=== PATIENT | female | born 1950 | race Caucasian/White ===

== ENCOUNTER 2016-10-01 14:48 | Emergency (ER) | payer OTHER, MEDICAID | END 2016-10-01 15:08 | disposition left against medical advice (07) | DX: Z53.21 Procedure and treatment not carried out due to patient leaving prior to being seen by health care provider (principal) ==

== ENCOUNTER 2016-10-02 00:02 | Emergency (ER) | payer OTHER, MEDICAID ==
[2016-10-02] MEDS ORDERED: FAMOTIDINE 20 MG/2 ML SDV IVP ONE (01:19)
[2016-10-02] MEDS ORDERED: methylPREDNISolone SOD SUCC 125 MG/2 ML VIAL IVP ONE (01:19)
[2016-10-02 01:28] LABS: % IMMATURE GRANULYOCYTES 0.4 % (0.0-1.1); ABSOLUTE IMMATURE GRANULOCYTES 0.04 10^3/uL (0.00-0.10); ADD DIFF? NO; ADD MORPH? NO; ADD SCAN? NO; ATYPICAL LYMPHOCYTE FLAG 10 (0-99); FRAGMENT RBC FLAG 0 (0-99); HEMATOCRIT 40.4 % (38.0-47.0); HEMOGLOBIN 14.2 g/dL (12.6-16.3); LEFT SHIFT FLG 0 (0-99); LIPEMIA HEMOLYSIS FLAG 90 (0-99); MEAN CELL HEMOGLOBIN 32.2 pg (27.9-34.1); MEAN CELL HEMOGLOBIN CONCENTR. 35.1 g/dL (32.4-36.7); MEAN CELL VOLUME 91.6 fL (81.5-99.8); PLATELET CLUMPS FLAG 10 (0-99); PLATELET COUNT 388 10^3/uL (150-400); RED BLOOD CELL COUNT 4.41 10^6/uL (4.18-5.33); RED CELL DISTRIBUTION WIDTH 12.4 % (11.5-15.2)
[2016-10-02 01:46] LABS: ALANINE AMINOTRANSFERASE 23 IU/L (9-52); ALKALINE PHOSPHATASE 92 IU/L (38-126); ANION GAP 9 mEq/L (8-16); ASPARTATE AMINOTRANSFERASE 16 IU/L (14-46); BILIRUBIN,TOTAL 0.7 mg/dL (0.1-1.4); CALCIUM 9.6 mg/dL (8.5-10.4); CARBON DIOXIDE 27 mEq/l (22-31); CHLORIDE 97 mEq/L (97-110); CREATININE 0.7 mg/dL (0.6-1.0); GLOMERULAR FILTRATION RATE > 60; GLUCOSE 96 mg/dL (70-100); POTASSIUM 4.3 mEq/L (3.5-5.2); SODIUM 133 mEq/L (134-144); TOTAL PROTEIN 6.8 g/dL (6.3-8.2)
[2016-10-02 02:06] VITALS: PULSE 66
--- NOTE | 2016-10-02 03:10 | EDPHY ---
H & P Stated Complaint: rt leg & all over body pain, rash all over x 2-3 wks, worsening Time Seen by Provider: 10/02/16 01:09 HPI/ROS: HPI The patient presents with rash of her right leg which has been present for the last several days, it is both painful and itchy and has been getting progressively more red and swollen over time. She went to an urgent care, however was instructed to come to the emergency room to be evaluated for DVT. She says the rash has spread now to her opposite leg and her arms. This rash is pruritic. She has no rash on her palms or soles or in her mouth. She has not had a fever. She denies any new exposures, new foods, new medications. She has no prior history of similar.. REVIEW OF SYSTEMS Constitutional: No fever, no chills. Eyes: No discharge. ENT: No sore throat. Cardiovascular: No chest pain, no palpitations. Respiratory: No cough, no shortness of breath. Gastrointestinal: No abdominal pain, no vomiting. Genitourinary: No hematuria. Musculoskeletal: No back pain. Skin: See HPI Neurological: No headache. PMHx: Fibromyalgia, arthritis Soc Hx: Housed PHYSICAL General Appearance: Alert, no distress Eyes: Pupils equal and round no pallor or injection ENT, Mouth: Mucous membranes moist Respiratory: There are no retractions, lungs are clear to auscultation Cardiovascular: Regular rate and rhythm Gastrointestinal: Abdomen is soft and non-tender, no masses, bowel sounds normal Neurological: A&O, moves all extremities Skin: Warm and dry, erythematous maculopapular rash with areas of confluence on of her right leg, it is slightly warm, the remainder of her extremities have a papular erythematous rash which is circumferential Musculoskeletal: Neck is supple non tender Extremities: symmetrical, full range of motion Psychiatric: Patient is oriented X 3, there is no agitation Source: Patient Exam Limitations: No limitations - Personal History Current Tetanus/Diphtheria Vaccine: Unsure Current Tetanus Diphtheria and Acellular Pertussis (TDAP): Unsure - Medical/Surgical History Hx Asthma: No Hx Chronic Respiratory Disease: Yes Hx Diabetes: No Hx Cardiac Disease: No Hx Renal Disease: No Hx Cirrhosis: No Hx Alcoholism: No Hx HIV/AIDS: No Hx Splenectomy or Spleen Trauma: No Other PMH: FIBROMYALGIA, ARTHRITIS, DJD, HTN, - Social History Smoking Status: Current every day smoker Constitutional: Initial Vital Signs Temperature (C) 36.7 C 10/02/16 00:16 Heart Rate 74 10/02/16 00:16 Respiratory Rate 16 10/02/16 00:16 Blood Pressure 170/89 H 10/02/16 00:16 O2 Sat (%) 93 10/02/16 00:16 O2 Delivery Mode Room Air Allergies/Adverse Reactions: No Known Allergies Allergy (Verified 10/02/16 00:11) Home Medications: Medication Instructions Recorded Aspirin [Aspir 81] 0 mg PO 11/27/11 Estrogen,Con/M-Progest Acet 0 each PO 11/27/11 [Premphase 0.625-5 mg Tablet] Oxycodone HCl [Oxyir] 0 mg PO 11/27/11 fentanYL [Fentanyl] each TD 11/27/11 Calcium & Magnesium Carbonate 10/02/16 Cephalexin [Keflex (*)] 500 mg PO Q6H #28 cap 10/02/16 Coq-10 10/02/16 Levalbuterol HCl [Xopenex] 10/02/16 Multivitamin 10/02/16 Duncan 3 1,000 mg Softgel 10/02/16 Vitamin D3 10/02/16 predniSONE 40 mg PO DAILY #8 tablet 10/02/16 Medical Decision Making - Diagnostics Imaging: DVT study is negative, discussed with the radiologist. Differential Diagnosis: This is a 66-year-old female with fibromyalgia, hypertension, arthritis who presents from home with right leg pain and swelling with rash for the last several days, now with diffuse itchy rash. Differential diagnosis includes cellulitis, urticaria, contact dermatitis, DVT. In the emergency room, DVT study was performed and was unremarkable. Labs were checked and were also normal, she did not have any leukocytosis. I feel she likely has urticaria versus contact dermatitis with a cellulitis of her right leg. She was given a dose of ceftriaxone here. She was also given Solu-Medrol , Benadryl and Pepcid for her more diffuse rash. She had improvement in her symptoms. She will be discharged home with Keflex and prednisone and instructions to take antihistamines. I have referred her to Dermatology. She is in agreement with this plan. - Data Points Laboratory Results: Laboratory Results 10/02/16 00:48 10/02/16 00:48 Medications Given: Discontinued Medications Diphenhydramine HCl (Benadryl Injection) 25 mg IVP EDNOW ONE Stop: 10/02/16 01:20 Last Admin: 10/02/16 01:34 Dose: 25 mg Famotidine (Pepcid) 20 mg IVP EDNOW ONE Stop: 10/02/16 01:20 Last Admin: 10/02/16 01:34 Dose: 20 mg Ceftriaxone Sodium/Dextrose (Rocephin 1 Gm (Premix)) 50 mls @ 100 mls/hr IV EDNOW ONE PRN Reason: Protocol Stop: 10/02/16 03:40 Last Admin: 10/02/16 03:20 Dose: 50 mls Methylprednisolone Sodium Succinate (Solu-Medrol) 125 mg IVP EDNOW ONE Stop: 10/02/16 01:20 Last Admin: 10/02/16 01:35 Dose: 125 mg Departure - Departure Disposition: Home, Routine, Self-Care Clinical Impression: Left leg cellulitis, Urticaria Condition: Good Instructions: Urticaria (ED), Cellulitis (ED) Additional Instructions: Please take the antibiotic as prescribed. You should also take prednisone as prescribed. You can take Benadryl or hydroxyzine as needed for itching. Please follow-up with the engineering designer. You should return to the emergency room if your worse in any way. Referrals: Maynor López [Primary Care Provider] - As per Instructions Stoney Girard MD [Medical Doctor] - As per Instructions Prescriptions: Cephalexin [Keflex (*)] 500 mg PO Q6H #28 cap predniSONE 40 mg PO DAILY #8 tablet
[2016-10-02 04:07] VITALS: BP 133/73; RESP 16; TEMP 98.2; O2SAT 93
== END 2016-10-02 04:08 | disposition home or self-care (01) ==
DX: L03.116 Cellulitis of left lower limb (principal); L50.9 Urticaria, unspecified; I10 Essential (primary) hypertension; F17.200 Nicotine dependence, unspecified, uncomplicated; Z79.82 Long term (current) use of aspirin
CPT/HCPCS: 93971; 96365; 96375; 99285; J0696; J1200

== ENCOUNTER 2016-10-29 22:43 | Inpatient (IN) | payer OTHER, MEDICAID ==
[2016-10-29] MEDS ORDERED: IPRATROPIUM/ALBUTEROL 3 ML DEYVIAL ONE (22:54)
[2016-10-29] MEDS ORDERED: IPRATROPIUM/ALBUTEROL 3 ML DEYVIAL IH ONE (23:00)
[2016-10-29] MEDS ORDERED: NS 1,000 ML IV ONE (23:00)
[2016-10-29] MEDS ORDERED: LORazepam 2 MG/ML INJ ONE ×2 (23:01→23:18)
[2016-10-29] MEDS ORDERED: FUROSEMIDE 40 MG/4 ML VIAL IVP ONE (23:15)
[2016-10-29] MEDS ORDERED: LORazepam 2 MG/ML INJ IVP ONE (23:15)
[2016-10-29] MEDS ORDERED: HALOPERIDOL LACT 5 MG/ML INJ IVP ONE (23:15)
--- NOTE | 2016-10-29 23:22 | EDPHY ---
H & P Time Seen by Provider: 10/29/16 23:11 HPI/ROS: Chief Complaint: Shortness of breath HPI: 66-year-old woman with history of fibromyalgia and COPD chronically on 2 L of oxygen via nasal cannula called EMS tonight for increasing shortness of breath. On EMS arrival patient was not using her oxygen and was saturating her in the 70%. Patient had was very agitated and anxious. Is a very poor historian. States that she is feeling short of breath now and cannot get comfortable. Has worn a fentanyl patch in the past but is not currently have 1 on. Remainder of a history is unobtainable as the patient is very agitated and not answering questions Unobtainable secondary to the patient's confusion and agitation and shortness of breath PMH: COPD, fibromyalgia Social History: Positive for smoking, otherwise not obtainable Family History: non-contributory Physical Exam: Gen: Awake, Alert, agitated, in distress HEENT: Nose: no rhinorrhea Eyes: PERRLA, EOMI Mouth: Dry mucosa Neck: Supple, Chest: nontender, no wheezes, diffuse crackles in all lung zones Heart: S1, S2 normal, no murmur Abd: Soft, non-tender, no guarding Back: no CVA tenderness, no midline tenderness Ext: no edema, non-tender Skin: no rash Neuro: CN II-XII intact, Sensation grossly intact, Strength 5/5 in bilateral upper and lower extremities - Medical/Surgical History Hx Asthma: No Hx Chronic Respiratory Disease: Yes Hx Diabetes: No Hx Cardiac Disease: No Hx Renal Disease: No Hx Cirrhosis: No Hx Alcoholism: No Hx HIV/AIDS: No Hx Splenectomy or Spleen Trauma: No Other PMH: FIBROMYALGIA, ARTHRITIS, DJD, HTN, - Social History Smoking Status: Current every day smoker Constitutional: Initial Vital Signs Temperature (C) 36.4 C 10/29/16 22:50 Heart Rate 110 H 10/29/16 22:50 Respiratory Rate 26 H 10/29/16 22:50 Blood Pressure 183/98 H 10/29/16 22:50 O2 Sat (%) 62 L 10/29/16 22:50 O2 Delivery Mode Room Air O2 (L/minute) 15 Allergies/Adverse Reactions: No Known Allergies Allergy (Verified 10/02/16 00:11) Home Medications: Medication Instructions Recorded Aspirin [Aspir 81] 0 mg PO 11/27/11 Estrogen,Con/M-Progest Acet 0 each PO 11/27/11 [Premphase 0.625-5 mg Tablet] Oxycodone HCl [Oxyir] 0 mg PO 11/27/11 fentanYL [Fentanyl] each TD 11/27/11 Calcium & Magnesium Carbonate 10/02/16 Cephalexin [Keflex (*)] 500 mg PO Q6H #28 cap 10/02/16 Coq-10 10/02/16 Levalbuterol HCl [Xopenex] 10/02/16 Multivitamin 10/02/16 Patriot 3 1,000 mg Softgel 10/02/16 Vitamin D3 10/02/16 predniSONE 40 mg PO DAILY #8 tablet 10/02/16 Medical Decision Making - Diagnostics Imaging Results: Imaging Impressions Chest X-Ray 10/29/16 23:13 Impression: Development of diffuse alveolar opacities in association with cardiac enlargement probably reflects pulmonary edema although diffuse pneumonia cannot be excluded radiographically. Results called and discussed with Bassam Acosta MD on 10/29/2016 at 23:33 Chest X-Ray 10/29/16 23:55 Impression: 1. Satisfactory positioning of the endotracheal tube. 2. Persistent diffuse alveolar opacities and cardiac enlargement. Imaging: I viewed and interpreted images myself Procedures: Indication for the procedure was CHF, hypoxia, agitation. The patient was preoxygenated with 100% oxygen by face mask. The patient was sedated with 20 mg of etomidate and paralyzed with 120 mg of succinylcholine. The patient was orally endotracheally intubated under direct visualization with a 7.5 ETT. Tracheal intubation was confirmed with misting on the tube; breath sounds were auscultated equally bilaterally; appropriate color change with [place] [employer] CO2 detector, capnography waveform is appropriate, oxygen saturation after procedure is 94%. Chest X-ray shows ETT in good position. The procedure was performed by myself. ED Course/Re-evaluation: 66-year-old woman presented emergency department severe respiratory distress with altered mental status. She initially received Ativan as an anxiolytic without significant improvement. A chest x-ray was performed showed severe pulmonary edema. This is new compared to prior chest x-ray from 2013 which is her most recent here. No ABG was ordered. Patient was started on BiPAP. ABG shows hypoxia with out hypercarbia. Patient increasingly agitated on BiPAP and not tolerating. 5 mg of Haldol ordered. Patient moved to resuscitation room. Patient continues to be increasingly agitated, not keeping the mask on, due to hypoxemia altered mental status and significant pulmonary edema patient was RSI intubated by me. Case discussed with Dr. rubi, hospitalist. Will admit to ICU for further care. I have ordered 60 mg of Lasix IV. She also need a Wyatt catheter. Patient's oxygenation coming up to 95% with 7 of peep on the ventilator post intubation. Post intubation chest x-ray shows ET tube in good position with persistent pulmonary edema. Patient on propofol drip for sedation and starting fentanyl drip as well. Patient to ICU for continued care. Hemodynamics and oxygenation have settled. She did receive vecuronium in addition to additional sedation. Critical Care Time: I spent a total of 55 minutes of critical care time in obtaining history, performing a physical exam, bedside monitoring of interventions, collecting and interpreting tests and discussion with consultants but not including time spent performing procedures. - Data Points Laboratory Results: Laboratory Results 10/29/16 22:53 10/29/16 22:53 10/29/16 10/29/16 10/29/16 23:14 23:14 22:53 WBC RBC Hgb Hct MCV MCH MCHC RDW Plt Count MPV Neut % (Auto) Lymph % (Auto) [place] % (Auto) Eos % (Auto) Baso % (Auto) Nucleat RBC Rel Count Absolute Neuts (auto) Absolute Lymphs (auto) Absolute Monos (auto) Absolute Eos (auto) Absolute Basos (auto) Absolute Nucleated RBC Immature Gran % Immature Gran # Puncture Site LEFT RADIAL Patient Temperature 37.0 DEGREES DEGREES pCO2 27 mmHg L mmHg (34-38) pO2 58 mmHg L mmHg (65-75) Total CO2 20 mEq/L L mEq/L (23-27) ABG pH 7.47 H (7.35-7.45) ABG O2 Saturation 88 % L % (92-95) ABG Base Excess -2.4 mEq/L mEq/L (-2.5-2.5) VBG Lactic Acid 1.5 mmol/L mmol/L (0.7-2.1) Total O2 Concentration 15.0 LITERS LITERS Sodium 131 mEq/L L mEq/L (134-144) Potassium 3.8 mEq/L mEq/L (3.5-5.2) Chloride 98 mEq/L mEq/L (97-110) Carbon Dioxide 21 mEq/l L mEq/l (22-31) Bicarbonate 20 mEq/L L mEq/L (22-26) Anion Gap 12 mEq/L mEq/L (8-16) BUN 7 mg/dL mg/dL (7-23) Creatinine 0.6 mg/dL mg/dL (0.6-1.0) Estimated GFR > 60 Glucose 147 mg/dL H mg/dL (70-100) Calcium 8.8 mg/dL mg/dL (8.5-10.4) Total Bilirubin 1.4 mg/dL mg/dL (0.1-1.4) Conjugated Bilirubin 0.6 mg/dL H mg/dL (0.0-0.5) Unconjugated Bilirubin 0.8 mg/dL mg/dL (0.0-1.1) AST 43 IU/L IU/L (14-46) ALT 29 IU/L IU/L (9-52) Alkaline Phosphatase 132 IU/L H IU/L (38-126) Troponin I 0.062 ng/mL H ng/mL (0-0.034) Total Protein 6.2 g/dL L g/dL (6.3-8.2) Albumin 3.5 g/dL g/dL (3.5-5.0) Lipase < 10.0 IU/L L IU/L (23-300) 10/29/16 22:53 WBC 16.26 10^3/uL H 10^3/uL (3.80-9.50) RBC 4.21 10^6/uL 10^6/uL (4.18-5.33) Hgb 13.4 g/dL g/dL (12.6-16.3) Hct 38.6 % % (38.0-47.0) MCV 91.7 fL fL (81.5-99.8) MCH 31.8 pg pg (27.9-34.1) MCHC 34.7 g/dL g/dL (32.4-36.7) RDW 12.5 % % (11.5-15.2) Plt Count 407 10^3/uL H 10^3/uL (150-400) MPV 8.9 fL fL (8.7-11.7) Neut % (Auto) 85.7 % H % (39.3-74.2) Lymph % (Auto) 9.2 % L % (15.0-45.0) [place] % (Auto) 3.8 % L % (4.5-13.0) Eos % (Auto) 0.2 % L % (0.6-7.6) Baso % (Auto) 0.2 % L % (0.3-1.7) Nucleat RBC Rel Count 0.0 % % (0.0-0.2) Absolute Neuts (auto) 13.94 10^3/uL H 10^3/uL (1.70-6.50) Absolute Lymphs (auto) 1.49 10^3/uL 10^3/uL (1.00-3.00) Absolute Monos (auto) 0.62 10^3/uL 10^3/uL (0.30-0.80) Absolute Eos (auto) 0.03 10^3/uL 10^3/uL (0.03-0.40) Absolute Basos (auto) 0.04 10^3/uL 10^3/uL (0.02-0.10) Absolute Nucleated RBC 0.00 10^3/uL 10^3/uL (0-0.01) Immature Gran % 0.9 % % (0.0-1.1) Immature Gran # 0.14 10^3/uL H 10^3/uL (0.00-0.10) Puncture Site Patient Temperature pCO2 pO2 Total CO2 ABG pH ABG O2 Saturation ABG Base Excess VBG Lactic Acid Total O2 Concentration Sodium Potassium Chloride Carbon Dioxide Bicarbonate Anion Gap BUN Creatinine Estimated GFR Glucose Calcium Total Bilirubin Conjugated Bilirubin Unconjugated Bilirubin AST ALT Alkaline Phosphatase Troponin I Total Protein Albumin Lipase Medications Given: Discontinued Medications Fentanyl (Sublimaze) 100 mcg IVP EDNOW ONE Stop: 10/30/16 00:34 Last Admin: 10/30/16 00:38 Dose: 100 mcg Departure - Departure Disposition: [facility] Inpatient Acute Clinical Impression: Congestive heart failure, Respiratory failure, Hypoxemia Condition: Critical
[2016-10-29] MEDS ORDERED: ONDANSETRON 4 MG/2 ML VIAL IVP ONE (23:30)
[2016-10-29] MEDS ORDERED: ETOMIDATE 20 MG/10 ML VIAL IVP ONE (23:30)
[2016-10-29] MEDS ORDERED: fentaNYL 100 MCG/2 ML INJ IVP ONE ×2 (23:30→23:45)
[2016-10-29] MEDS ORDERED: SUCCINYLCHOLINE CHLORIDE 200 MG/10 ML VIAL IVP ONE (23:30)
[2016-10-29 23:32] LABS: % IMMATURE GRANULYOCYTES 0.9 % (0.0-1.1); ABSOLUTE IMMATURE GRANULOCYTES 0.14 10^3/uL (0.00-0.10); ADD DIFF? NO; ADD MORPH? NO; ADD SCAN? NO; ATYPICAL LYMPHOCYTE FLAG 0 (0-99); FRAGMENT RBC FLAG 0 (0-99); HEMATOCRIT 38.6 % (38.0-47.0); HEMOGLOBIN 13.4 g/dL (12.6-16.3); LEFT SHIFT FLG 10 (0-99); LIPEMIA HEMOLYSIS FLAG 90 (0-99); MEAN CELL HEMOGLOBIN 31.8 pg (27.9-34.1); MEAN CELL HEMOGLOBIN CONCENTR. 34.7 g/dL (32.4-36.7); MEAN CELL VOLUME 91.7 fL (81.5-99.8); MEAN PLATELET VOLUME 8.9 fL (8.7-11.7); PLATELET CLUMPS FLAG 0 (0-99); PLATELET COUNT 407 10^3/uL (150-400); RED BLOOD CELL COUNT 4.21 10^6/uL (4.18-5.33); RED CELL DISTRIBUTION WIDTH 12.5 % (11.5-15.2)
[2016-10-29 23:32] LABS: BASE EXCESS -2.4 mEq/L (-2.5-2.5); BICARBONATE 20 mEq/L (22-26); MEASURED OXYGEN SATURATION 88 % (92-95); PCO2 27 mmHg (34-38); PO2 58 mmHg (65-75); TCO2 20 mEq/L (23-27)
[2016-10-29] MEDS ORDERED: HALOPERIDOL LACT 5 MG/ML INJ ONE (23:33)
[2016-10-29] MEDS ORDERED: FUROSEMIDE 20 MG/2 ML VIAL ONE (23:33)
[2016-10-29 23:40] LABS: ALANINE AMINOTRANSFERASE 29 IU/L (9-52); ALBUMIN 3.5 g/dL (3.5-5.0); ALKALINE PHOSPHATASE 132 IU/L (38-126); ANION GAP 12 mEq/L (8-16); ASPARTATE AMINOTRANSFERASE 43 IU/L (14-46); BILIRUBIN,TOTAL 1.4 mg/dL (0.1-1.4); BILIRUBIN-CONJUGATED 0.6 mg/dL (0.0-0.5); BILIRUBIN-UNCONJUGATED 0.8 mg/dL (0.0-1.1); CALCIUM 8.8 mg/dL (8.5-10.4); CARBON DIOXIDE 21 mEq/l (22-31); CHLORIDE 98 mEq/L (97-110); CREATININE 0.6 mg/dL (0.6-1.0); GLOMERULAR FILTRATION RATE > 60; GLUCOSE 147 mg/dL (70-100); POTASSIUM 3.8 mEq/L (3.5-5.2); SODIUM 131 mEq/L (134-144); TOTAL PROTEIN 6.2 g/dL (6.3-8.2)
[2016-10-29] MEDS ORDERED: ETOMIDATE 40 MG/20 ML INJ ONE (23:44)
[2016-10-29] MEDS ORDERED: PROPOFOL/EMULSION 1,000 MG/100 ML BOTTLE IV ONE (23:44)
[2016-10-29] MEDS ORDERED: SUCCINYLCHOLINE CHLORIDE*ANESTHESIA ONLY*200 MG/10 ML SYR IVP ONE (23:44)
[2016-10-29] MEDS ORDERED: PROPOFOL 200 MG/20 ML VIAL IVP ONE (23:45)
[2016-10-29 23:51] LABS: TROPONIN I 0.062 ng/mL (0-0.034)
[2016-10-30] MEDS ORDERED: fentaNYL 100 MCG/2 ML INJ ONE ×2 (00:06→00:21)
[2016-10-30] MEDS ORDERED: ONDANSETRON 4 MG/2 ML VIAL ONE (00:28)
[2016-10-30] MEDS ORDERED: LEVALBUTEROL 1.25 MG/3 ML DEYVIAL IH PRN (00:28)
--- NOTE | 2016-10-30 00:30 | CPEKG ---
Heart Rate: 86 RR Interval: 698 P-R Interval: 140 QRSD Interval: 84 QT Interval: 440 QTC Interval: 527 P [place]: 69 QRS [place]: 41 T Wave [place]: 30 EKG Severity - ABNORMAL ECG - EKG Impression: SINUS RHYTHM EKG Impression: LEFT ATRIAL ABNORMALITY EKG Impression: INFERIOR INFARCT, OLD Electronically Signed By: Toni River 31-Oct-2016 09:07:44
[2016-10-30] MEDS ORDERED: fentaNYL 100 MCG/2 ML INJ IVP ONE (00:33)
[2016-10-30] MEDS ORDERED: fentaNYL 100 MCG/2 ML INJ IVP PRN (00:34)
[2016-10-30] MEDS ORDERED: VECURONIUM BROMIDE 10 MG VIAL IV ONE (00:34)
[2016-10-30] MEDS: fentaNYL/NACL 100 ML IV SCH ×4 (01:00→22:37)
[2016-10-30 01:36] LABS: COLOR PALE YELLOW; LEUKOCYTE ESTERASE,URINE NEGATIVE (NEGATIVE); NITRITE,URINE NEGATIVE (NEGATIVE)
[2016-10-30 01:39] LABS: RBC,URINE NONE SEEN /hpf (0-3); WBC,URINE NONE SEEN /hpf (0-3)
[2016-10-30] MEDS ORDERED: ALTEPLASE 2 MG VIAL IVP PRN (01:52)
[2016-10-30] MEDS ORDERED: ALBUTEROL 200 PUFFS/18 GM MDI IH SCH (02:00)
[2016-10-30] MEDS: ERTAPENEM 1 GM in NS 100 ML IV SCH ×2 (02:06→08:11)
[2016-10-30 02:33] LABS: BASE EXCESS -5.4 mEq/L (-2.5-2.5); BICARBONATE 23 mEq/L (22-26); MEASURED OXYGEN SATURATION 94 % (92-95); PCO2 60 mmHg (34-38); PO2 97 mmHg (65-75); TCO2 25 mEq/L (23-27)
[2016-10-30 02:34] LABS: O2 CONCENTRATIION 90 % (0-100); P/F RATIO 108 RATIO; SIMV YES
[2016-10-30 02:35] LABS: END TIDAL CO2 52; PATIENT RATE 23; PRESSURE SUPPORT 7
[2016-10-30] MEDS: LORazepam 2 MG/ML INJ IVP PRN ×4 (03:20→21:10)
[2016-10-30] MEDS ORDERED: MIDAZOLAM HCL 50 MG in D5W 50 ML IV SCH (03:30)
--- NOTE | 2016-10-30 04:00 | PDGENHP ---
History and Physical - Chief Complaint shortness of breath - History of Present Illness Patient is a 66-year-old female with history of COPD on chronic O2, fibromyalgia , hypertension, arthritis presents to the ED with complaint of shortness of breath. History is obtained from the chart and ED staff as patient is intubated on a evaluation. Per report, she called EMS this evening with complaint of acute onset shortness of breath. When EMS arrived they found her off nasal cannula and saturating at about 70% on room air. She was placed on oxygen and transported to the ED. On arrival to the ED patient was in moderate respiratory distress, afebrile, hypertensive and hypoxic to the 60s on room air. Chest x-ray revealed diffuse alveolar infiltrates and pulmonary edema. Labs revealed leukocytosis, negative lactic acid, normal BMP, indeterminantly elevated troponin. She was emergently and successfully intubated for hypoxemia and respiratory failure. She was also given IV lasix, nebs. On my initial evaluation, patient was being sedated with propofol and BP had dropped significantly to the 80-90 SBP range. Propofol was titrated off and she was initiated on fentanyl drip for sedation. However, she became significantly agitated, hypertensive and tachycardic, not adequately sedated on fentanyl. Given her acute agitation she was given a paralytic and additional propofol for sedation and the transported to the ICU. On review of medical record, patient was evaluated in the ED one month ago for a diffuse maculopapular rash with associated RLE cellulitis. She was given antibiotics and steroids for her rash and discharged home. RLE doppler US was negative for DVT at that time. History Information - Allergies/Home Medication List Allergies/Adverse Reactions: No Known Allergies Allergy (Verified 10/02/16 00:11) Home Medications: Aspirin [Aspir 81] 0 mg PO 11/27/11 [Last Taken Unknown] Estrogen,Con/M-Progest Acet [Premphase 0.625-5 mg Tablet] 0 each PO 11/27/11 [ Last Taken Unknown] Oxycodone HCl [Oxyir] 0 mg PO 11/27/11 [Last Taken Unknown] fentanYL [Fentanyl] each TD 11/27/11 [Last Taken Unknown] Calcium & Magnesium Carbonate 10/02/16 [Last Taken Unknown] Coq-10 10/02/16 [Last Taken Unknown] Levalbuterol HCl [Xopenex] 10/02/16 [Last Taken Unknown] Multivitamin 10/02/16 [Last Taken Unknown] [place] 3 1,000 mg Softgel 10/02/16 [Last Taken Unknown] Vitamin D3 10/02/16 [Last Taken Unknown] I have personally reviewed and updated: family history, medical history, social history, surgical history - Past Medical History Additional medical history: unable to fully assess, but according to chart review: fibromyalgia. COPD. chronic respiratory failure on continuous O2 via nasal cannula. h/o R MCA aneurysm s/p clipping (2007) - Surgical History Additional surgical history: R MCA aneurysm clipping - Family History Additional family history: unknown - Social History Smoking Status: Current every day smoker Alcohol Use: Other (unknown) Drug Use: Other (unknown) Review of Systems Review of Systems: unable to assess full ROS due to patient condition Physical Exam Temp Pulse Resp BP Pulse Ox 36.4 C 123 H 20 186/91 H 91 L 10/29/16 22:50 10/30/16 00:56 10/30/16 00:56 10/30/16 00:56 10/30/16 00:56 FIO2 (%) 90 Constitutional: obese, uncomfortable Eyes: PERRL, anicteric sclera, EOMI Ears, Nose, Mouth, Throat: ears appear normal, no oral mucosal ulcers, dry mucous membranes Cardiovascular: pulses symmetric bilaterally, tachycardia, No JVD, No edema Peripheral Pulses: 2+: dorsalis-pedis (R), dorsalis-pedis (L) Respiratory: other (intubated, diffuse rhonchi/crackles present) Gastrointestinal: soft, non-tender abdomen, no palpable masses, No distension Genitourinary: no bladder fullness, no bladder tenderness Skin: warm, normal color, no fluctuance, abrasion (healing scab on R lower extremity with mild surrounding erythema), No mottled Musculoskeletal: other (moving all extremities equally ) Neurologic: other (sedated, but when not sedated highly agitated and uncooperative/encephalopathic) Psychiatric: encephalopathic, anxious, agitated Lab Data & Imaging Review 10/30/16 04:20 10/30/16 04:20 WBC 16.26 10^3/uL (3.80-9.50) H 10/29/16 22:53 RBC 4.21 10^6/uL (4.18-5.33) 10/29/16 22:53 Hgb 13.4 g/dL (12.6-16.3) 10/29/16 22:53 Hct 38.6 % (38.0-47.0) 10/29/16 22:53 MCV 91.7 fL (81.5-99.8) 10/29/16 22:53 MCH 31.8 pg (27.9-34.1) 10/29/16 22:53 MCHC 34.7 g/dL (32.4-36.7) 10/29/16 22:53 RDW 12.5 % (11.5-15.2) 10/29/16 22:53 Plt Count 407 10^3/uL (150-400) H 10/29/16 22:53 MPV 8.9 fL (8.7-11.7) 10/29/16 22:53 Neut % (Auto) 85.7 % (39.3-74.2) H 10/29/16 22:53 Lymph % (Auto) 9.2 % (15.0-45.0) L 10/29/16 22:53 White % (Auto) 3.8 % (4.5-13.0) L 10/29/16 22:53 Eos % (Auto) 0.2 % (0.6-7.6) L 10/29/16 22:53 Baso % (Auto) 0.2 % (0.3-1.7) L 10/29/16 22:53 Nucleat RBC Rel Count 0.0 % (0.0-0.2) 10/29/16 22:53 Absolute Neuts (auto) 13.94 10^3/uL (1.70-6.50) H 10/29/16 22:53 Absolute Lymphs (auto) 1.49 10^3/uL (1.00-3.00) 10/29/16 22:53 Absolute Monos (auto) 0.62 10^3/uL (0.30-0.80) 10/29/16 22:53 Absolute Eos (auto) 0.03 10^3/uL (0.03-0.40) 10/29/16 22:53 Absolute Basos (auto) 0.04 10^3/uL (0.02-0.10) 04/24/17 22:53 Absolute Nucleated RBC 0.00 10^3/uL (0-0.01) 10/29/16 22:53 Immature Gran % 0.9 % (0.0-1.1) 10/29/16 22:53 Immature Gran # 0.14 10^3/uL (0.00-0.10) H 10/29/16 22:53 Puncture Site NONE GIVEN 10/30/16 02:20 Patient Temperature 37.2 DEGREES 10/30/16 02:20 pCO2 60 mmHg (34-38) H 10/30/16 02:20 pO2 97 mmHg (65-75) H 10/30/16 02:20 Total CO2 25 mEq/L (23-27) 10/30/16 02:20 ABG pH 7.21 (7.35-7.45) L D 10/30/16 02:20 ABG PO2/FiO2 Ratio 108 RATIO 10/30/16 02:20 ABG O2 Saturation 94 % (92-95) 10/30/16 02:20 ABG Base Excess -5.4 mEq/L (-2.5-2.5) L 10/30/16 02:20 VBG Lactic Acid 1.6 mmol/L (0.7-2.1) 10/30/16 00:45 Total O2 Concentration 15.0 LITERS 10/29/16 23:14 O2 Concentration % 90 % (0-100) 10/30/16 02:20 Actual Respiration Rate 23 10/30/16 02:20 Set Respiration Rate 18 10/30/16 02:20 SIMV YES 10/30/16 02:20 Tidal Volume 430 10/30/16 02:20 End Tidal CO2 52 10/30/16 02:20 PEEP 7 10/30/16 02:20 Pressure Support 7 10/30/16 02:20 Sodium 131 mEq/L (134-144) L 10/29/16 22:53 Potassium 3.8 mEq/L (3.5-5.2) 10/29/16 22:53 Chloride 98 mEq/L (97-110) 10/29/16 22:53 Carbon Dioxide 21 mEq/l (22-31) L 10/29/16 22:53 Bicarbonate 23 mEq/L (22-26) 10/30/16 02:20 Anion Gap 12 mEq/L (8-16) 10/29/16 22:53 BUN 7 mg/dL (7-23) 10/29/16 22:53 Creatinine 0.6 mg/dL (0.6-1.0) 10/29/16 22:53 Estimated GFR > 60 10/29/16 22:53 Glucose 147 mg/dL (70-100) H 10/29/16 22:53 Calcium 8.8 mg/dL (8.5-10.4) 10/29/16 22:53 Total Bilirubin 1.4 mg/dL (0.1-1.4) 10/29/16 22:53 Conjugated Bilirubin 0.6 mg/dL (0.0-0.5) H 10/29/16 22:53 Unconjugated Bilirubin 0.8 mg/dL (0.0-1.1) 10/29/16 22:53 AST 43 IU/L (14-46) 10/29/16 22:53 ALT 29 IU/L (9-52) 10/29/16 22:53 Alkaline Phosphatase 132 IU/L (38-126) H 10/29/16 22:53 Troponin I 0.062 ng/mL (0-0.034) H 10/29/16 22:53 NT-Pro-B Natriuret Pep 3710 pg/mL (0-125) H 10/30/16 00:45 Total Protein 6.2 g/dL (6.3-8.2) L 10/29/16 22:53 Albumin 3.5 g/dL (3.5-5.0) 10/29/16 22:53 Lipase < 10.0 IU/L (23-300) L 10/29/16 22:53 Urine Color PALE YELLOW 10/30/16 00:07 Urine Appearance CLEAR 10/30/16 00:07 Urine pH 6.0 (5.0-7.5) 10/30/16 00:07 Ur Specific [place] 1.004 (1.002-1.030) 10/30/16 00:07 Urine Protein NEGATIVE (NEGATIVE) 10/30/16 00:07 Urine Ketones 1+ (NEGATIVE) H 10/30/16 00:07 Urine Blood 1+ (NEGATIVE) H 10/30/16 00:07 Urine Nitrate NEGATIVE (NEGATIVE) 10/30/16 00:07 Urine Bilirubin NEGATIVE (NEGATIVE) 10/30/16 00:07 Urine Urobilinogen NEGATIVE EU (0.2-1.0) 10/30/16 00:07 Ur Leukocyte Esterase NEGATIVE (NEGATIVE) 10/30/16 00:07 Urine RBC NONE SEEN /hpf (0-3) 10/30/16 00:07 Urine WBC NONE SEEN /hpf (0-3) 10/30/16 00:07 Ur Epithelial Cells TRACE /lpf (NONE-1+) 10/30/16 00:07 Urine Glucose NEGATIVE (NEGATIVE) 10/30/16 00:07 Visualized and Interpreted Chest x-ray results: Yes Chest X-Ray results: other (diffuse pulmonary edema and alveolar infiltrates) Visualized and Interpreted EKG results: Yes EKG Interpretation: Positive for: normal sinsus rhythm (with inf Q waves; slightly prolonged QTc) Assessment & Plan Assessment: Patient is a 66 year old female with COPD, chronic respiratory failure on O2, fibromyalgia, hypertension who was brought into the ED with acute hypoxic respiratory failure. ED evaluation revealed diffuse pulmonary edema, patient was emergently intubated and admitted to the ICU. Plan: # acute on chronic hypoxemic respiratory failure Presenting symptom onset, CXR, BNP appear consistent with acute pulmonary edema. Etiology of pulmonary edema is not clear, patient has a history of HTN, but no known history of CHF (no TTE in Medical record). APE may be related to acute hypertension/new onset CHF vs ARDS due to underlying infection vs acute pulmonary embolism. - cont mechanical ventilation protocol - check TTE, trend troponins to r/o ACS as cause - check d-dimer, if elevated consider CT angio to r/o PE - follow AM CXR, ABGs while intubated - standing duonebs q6h, with levalbuterol q2h prn # hemodynamic instability BP has varied significantly since arrival, likely related to sedation/ inadequate sedation. Initially presented hypertensive, became hypotensive with propofol and then markedly hypertensive when off propofol. Fentanyl uptitrated, as both precedex and propofol drop her BP significantly (SBP 70 range). She responded well to IV ativan, so will also initiate midazolam drip vs prn ativan q1-2h. # indeterminant troponin, elevated BNP Only known cardiac history is hypertension. On arrival, EKG shows normal sinus rhythm without obvious ischemia, initial troponin is mildly elevated and BNP is markedly elevated. Will trend troponins, monitor serial EKGs and check TTE. If significantly abnormal, will consult cardiology. # leukocytosis Admission labs reveal moderate leukocytosis with left shift and bandemia. Given her tachycardia and tachypnea on presentation, she meets SIRS criteria and only obvious source is her abnormal chest x-ray vs residual mild cellulitis of RLE. Lactic acid was negative x 2. She was cultured and initiated on empiric ertapenem and vancomycin, fluid bolus held due to presumed chf/pulmonary edema. # fibromyalgia, chronic pain syndrome Per med rec, patient is on chronic fentanyl patches. CUrrently on a fentanyl drip for sedation. # dispo: admit to ICU for acute hypoxemic respiratory failure # gen: NPO DVT ppx: lovenox Full code
[2016-10-30 04:32] LABS: % IMMATURE GRANULYOCYTES 0.7 % (0.0-1.1); ABSOLUTE IMMATURE GRANULOCYTES 0.11 10^3/uL (0.00-0.10); ADD DIFF? NO; ADD MORPH? NO; ADD SCAN? NO; ATYPICAL LYMPHOCYTE FLAG 0 (0-99); FRAGMENT RBC FLAG 0 (0-99); HEMATOCRIT 37.6 % (38.0-47.0); HEMOGLOBIN 12.9 g/dL (12.6-16.3); LEFT SHIFT FLG 0 (0-99); LIPEMIA HEMOLYSIS FLAG 90 (0-99); MEAN CELL HEMOGLOBIN 31.5 pg (27.9-34.1); MEAN CELL HEMOGLOBIN CONCENTR. 34.3 g/dL (32.4-36.7); MEAN CELL VOLUME 91.9 fL (81.5-99.8); MEAN PLATELET VOLUME 8.6 fL (8.7-11.7); PLATELET CLUMPS FLAG 10 (0-99); PLATELET COUNT 331 10^3/uL (150-400); RED BLOOD CELL COUNT 4.09 10^6/uL (4.18-5.33); RED CELL DISTRIBUTION WIDTH 12.4 % (11.5-15.2)
[2016-10-30 04:40] LABS: INR 1.32 (0.83-1.16); PROTIME(PATIENT) 16.4 SEC (12.0-15.0)
[2016-10-30] MEDS: ALBUTEROL 200 PUFFS/18 GM MDI IH SCH ×6 (04:45→23:28)
[2016-10-30 04:46] LABS: APTT 28.5 SEC (23.0-38.0)
[2016-10-30] MEDS: DEXMEDETOMIDINE HCL 400 MCG in NS 100 ML IV SCH ×2 (04:47→14:31)
[2016-10-30 04:54] LABS: ALANINE AMINOTRANSFERASE 27 IU/L (9-52); ALBUMIN 3.2 g/dL (3.5-5.0); ALKALINE PHOSPHATASE 98 IU/L (38-126); ANION GAP 9 mEq/L (8-16); ASPARTATE AMINOTRANSFERASE 34 IU/L (14-46); BILIRUBIN,TOTAL 0.9 mg/dL (0.1-1.4); CALCIUM 7.7 mg/dL (8.5-10.4); CARBON DIOXIDE 25 mEq/l (22-31); CHLORIDE 102 mEq/L (97-110); CREATININE 0.6 mg/dL (0.6-1.0); GLOMERULAR FILTRATION RATE > 60; GLUCOSE 165 mg/dL (70-100); MAGNESIUM 1.7 mg/dL (1.6-2.3); POTASSIUM 3.4 mEq/L (3.5-5.2); SODIUM 136 mEq/L (134-144); TOTAL PROTEIN 5.8 g/dL (6.3-8.2)
[2016-10-30 05:06] LABS: TROPONIN I 0.117 ng/mL (0-0.034)
[2016-10-30 05:07] LABS: CREATINE KINASE-MB FRACTION 3.34 ng/mL (0-3.19)
[2016-10-30 05:14] LABS: CK-MB INTERPRETATION NEGATIVE (NEGATIVE)
[2016-10-30] MEDS ORDERED: PROTOCOL POTASSIUM 1 DOSE MISC PRN (05:34)
[2016-10-30] MEDS ORDERED: PROTOCOL MAGNESIUM 1 DOSE IV PRN (05:34)
[2016-10-30 05:36] LABS: BICARBONATE 24 mEq/L (22-26); MEASURED OXYGEN SATURATION 96 % (92-95); PCO2 38 mmHg (34-38); PO2 88 mmHg (65-75); TCO2 25 mEq/L (23-27)
[2016-10-30 05:39] LABS: END TIDAL CO2 33; O2 CONCENTRATIION 60 % (0-100); P/F RATIO 147 RATIO; PATIENT RATE 25; PRESSURE SUPPORT 7; SIMV YES
--- NOTE | 2016-10-30 05:58 | CPEKG ---
Heart Rate: 57 RR Interval: 1053 P-R Interval: 160 QRSD Interval: 100 QT Interval: 520 QTC Interval: 507 P Arab: 64 QRS Arab: 54 T Wave Arab: 46 EKG Severity - BORDERLINE ECG - EKG Impression: SINUS RHYTHM EKG Impression: PROLONGED QT INTERVAL Electronically Signed By: Toni River 30-Oct-2016 06:34:54
[2016-10-30] MEDS ORDERED: NITROGLYCERIN 2% 1 GM PACKET TP SCH (06:00)
[2016-10-30] MEDS ORDERED: IPRATROPIUM/ALBUTEROL 3 ML DEYVIAL IH SCH (06:00)
[2016-10-30] MEDS: POTASSIUM Cl (KCl) 100 ML IV SCH ×3 (06:10→07:58)
[2016-10-30 06:56] LABS: MAGNESIUM 1.7 mg/dL (1.6-2.3); POTASSIUM 3.2 mEq/L (3.5-5.2)
[2016-10-30] MEDS ORDERED: VANCOMYCIN HCL/NORMAL SALINE 250 ML IV SCH (07:00)
[2016-10-30] MEDS ORDERED: LORazepam 2 MG/ML INJ IVP ONE (07:00)
[2016-10-30] MEDS: CHLORHEXIDINE GLUCONATE 15 ML UDL PO SCH ×2 (08:10→20:08)
[2016-10-30] MEDS: VANCOMYCIN HCL/NORMAL SALINE 250 ML IV SCH ×2 (08:10→20:08)
[2016-10-30] MEDS: ENOXAPARIN 40 MG/0.4 ML SYR SC SCH (08:11)
[2016-10-30] MEDS: PANTOPRAZOLE SODIUM 40 MG in NS 100 ML IV SCH (08:11)
--- NOTE | 2016-10-30 09:08 | HOSPPROG ---
Hospitalist Progress Note Assessment/Plan: 66 yo f w copd and chronic pain on chronic narcotics admitted w hypoxemic respiratory failure, labile blood pressures and b/l airspace disease hypoxemic respiratory failure: with b/l infiltrates infiltrates have improved- unclear whether 2/2 diuresis or positive pressure ventilation bnp and trop modestly elevated; ekg w no ischemic changes (interp by me) differential is cardiogenic pulm edema, pneumonia, huge aspiration, non cardiogenic pulm edema 1. await echo- reportedly normal 2. continue abx- add atypical coverage 3. check influenza 4. good candidate for bronch 5. trop and bnp could be explained by R heart strain 6. wean 02 as tolerated ? PE: S wave in 1 and Q in 3 w no prior she certainly has reasons for R heart strain that arent pe defer pe workup fir now hypotension: occurred in seting of + pressure ventilation, sedation and diuresis less likely 2/2 sepsis cvp would be helpful but doesnt have central access follow for now will likely give trial of repeat diuresis later today chronic pain w continuous narcotics: this likely accounts for difficulty w sedation proph: LMWH I have spent 40' crit care on her Subjective: AM cxr w improved b/l infiltrates c/w prior (interp by me). case d/ w dr harris. tele- no events (interp by me) Objective: Vital Signs Temp Pulse Resp BP Pulse Ox 36.4 C 57 L 23 H 107/67 100 10/30/16 08:00 10/30/16 08:00 10/30/16 08:00 10/30/16 08:00 10/30/16 08:00 Laboratory Results 10/30/16 04:20 10/30/16 04:20 10/29/16 10/30/16 10/31/16 05:59 05:59 05:59 Intake Total 776 Output Total 1880 60 Balance -1104 -60 PT 16.4 SEC (12.0-15.0) H 10/30/16 04:20 INR 1.32 (0.83-1.16) H 10/30/16 04:20 - Physical Exam Constitutional: other (intubated, sedated) Eyes: PERRL, anicteric sclera Ears, Nose, Mouth, Throat: moist mucous membranes, hearing normal Cardiovascular: regular rate and rhythym, no murmur, rub, or gallop, No tachycardia Respiratory: other (rhoncorous anterolat) Gastrointestinal: normoactive bowel sounds, soft, non-tender abdomen Genitourinary: no bladder fullness, talavera in urethra Skin: warm, normal color Musculoskeletal: No full muscle strength Neurologic: No AAOx3 Psychiatric: not anxious, No interacting appropriately ICD10 Worksheet Patient Problems: Problems Problem Status Onset Congestive heart failure Acute Hypoxemia Acute Respiratory failure Acute
[2016-10-30] MEDS ORDERED: DOXYCYCLINE INJ 100 MG in NS 250 ML IV SCH (10:00)
[2016-10-30] MEDS ORDERED: MAGNESIUM SULF 1 GM/DEXTROSE 100 ML IV ONE (10:04)
--- NOTE | 2016-10-30 10:55 | ECHO ---
[id number] + + [address] : : [place] [address] : : [phone] + + Adult Echocardiographic Report + ----+ :Name: FREDY ABDUL Lizzie Date: 10/30/2016 08:08 AM : : Hospital Admission Number: [id number] Location: 256: :: 1950 Gender: Female Height: 64 in : :Age: 66 yrs Race: WH Weight: 157 lb : :Reason For Study: Eval LV Fx : : BSA: 1.8 meters2 : :History: Acute respiratory failure, Intubated : + ----+ MMode/2D Measurements \T\ Calculations IVSd: 1.1 cm LVIDd: 4.0 cm FS: 41.8 % Ao root diam: 2.7 cm LVPWd: 1.1 cm LVIDs: 2.4 cm EDV(Teich): 72.0 ml ACS: 1.7 cm ESV(Teich): 19.3 ml EF(Teich): 73.2 % Normal Measurement Values: + + :LVIDd (3.5-5.7cm) IVSd (0.6-1.1cm) LVPWd (0.6-1.1cm) Aortic Root (2.0-3.7cm)Left Atrium (1.5-4.0cm): :LV Vol(d) (76-115ml) LV Vol(s) (29-48ml) Ejec Fraction (50-65%)PV Chi (0.6- 1.2m/s) TV Chi (0.4-1.0m/s) : :MV E Chi (0.8-1.0m/s)MV A Chi (0.3-1.0m/s)LVOT Chi (0.7-1.2m/s) Asc Ao Chi ( 0.9-1.8m/s) : + + Doppler Measurements \T\ Calculations MV E max chi: Ao V2 max: AI max chi: LV V1 max: 90.3 cm/sec 134.2 cm/sec 300.1 cm/sec 93.8 cm/sec MV A max chi: Ao max PG: AI max P.0 mmHg LV V1 max P.1 cm/sec 7.2 mmHg AI dec slope: 3.5 mmHg MV E/A: 1.3 161.2 cm/sec2 AI P1/2t: 545.5 msec MR max chi: PA V2 max: TR max chi: 343.9 cm/sec 73.3 cm/sec 346.9 cm/sec MR max PG: PA max PG: TR max P.5 mmHg 47.3 mmHg 2.1 mmHg RAP systole: 5.0 mmHg RVSP(TR): 49.5 mmHg Left Ventricle The left ventricle is normal in size. There is mild concentric left ventricular hypertrophy. The left ventricular ejection fraction is normal. Ejection Fraction = 73%. There is Doppler evidence for diastolic dysfunction. The left ventricular wall motion is normal. Right Ventricle The right ventricle is normal in size and function. Atria The left atrial size is normal. Right atrial size is normal. Mitral Valve The mitral valve is normal. There is no evidence of mitral valve prolapse. There is no mitral valve stenosis. There is mild mitral regurgitation. Tricuspid Valve Normal tricuspid valve. There is mild tricuspid regurgitation. Right ventricular systolic pressure is 49mmHg. There is Doppler evidence for moderate pulmonary hypertension. Aortic Valve The aortic valve is normal in structure and function. The aortic valve is trileaflet. There is no aortic stenosis. Mild aortic regurgitation. Pulmonic Valve The pulmonic valve is normal in structure and function. There is no pulmonic valvular regurgitation. Great Vessels The aortic root is normal size. Pericardium/Pleural There is no pericardial effusion. Conclusion A complete two-dimensional transthoracic echocardiogram was performed (2D, M-mode, Doppler and color flow Doppler). There is mild concentric left ventricular hypertrophy. The left ventricular ejection fraction is normal. Ejection Fraction = 73%. There is Doppler evidence for diastolic dysfunction. The left ventricular wall motion is normal. The right ventricle is normal in size and function. The left atrial size is normal. The mitral valve is normal. There is mild mitral regurgitation. There is mild tricuspid regurgitation. Right ventricular systolic pressure is 49mmHg. There is Doppler evidence for moderate pulmonary hypertension. The aortic valve is normal in structure and function. The aortic valve is trileaflet. Mild aortic regurgitation. There is no pericardial effusion. Final Reading Physician: Eliud Yanez signed on 10/30/2016 10:54 AM Ordering Physician: Rosy Mahan Performed By: Mello Chapman, [facility]
[2016-10-30] MEDS: DOXYCYCLINE INJ 100 MG in NS 250 ML IV SCH ×2 (11:06→21:38)
[2016-10-30] MEDS: PROPOFOL/EMULSION 100 ML IV SCH ×3 (13:13→22:35)
[2016-10-30] MEDS: NS 1,000 ML IV SCH (14:31)
--- NOTE | 2016-10-30 15:16 | GCON ---
[f rep st] CONSULTATION PULMONARY/CRITICAL CARE CONSULTATION DATE OF CONSULTATION: 10/30/2016 REFERRING PHYSICIAN: Elie Thomas MD REASON FOR REFERRAL: Evaluation and management of acute respiratory failure, requiring intubation. HISTORY: The patient is a 66-year-old woman with a history of fibromyalgia, degenerative joint dise ase, chronic opioid dependence, and COPD on oxygen, who called EMS tonight because of increased shor tness of breath. She was found to be severely hypoxemic, with oxygen saturations in the 70s. She w as quite confused in the emergency department, and because of her hypoxemia as well as some confusio n and agitation, with inability to protect her airway, she was intubated in the emergency department . She was then transferred to the intensive care unit, where she has remained intubated and somewha t sedated. The patient was quite agitated and was treated with propofol and fentanyl, but because o f hypotension, the propofol was changed to Versed. She is unable to give any further history. PAST MEDICAL HISTORY: 1. COPD. This is noted in the hospital notes, although I do not see this diagnosis in her outpatie nt notes from Dr. López's office. She did, however, have prescriptions for albuterol, Xopenex, as well as a Asmanex prescription in the past. 2. Fibromyalgia. 3. Degenerative joint disease. MEDICATIONS: At the time of admission include a fentanyl patch, oxycodone, estrogen, aspirin, Xopen ex. ALLERGIES: None. SOCIAL HISTORY: The patient is a smoker. No other social history obtainable. FAMILY HISTORY: Unremarkable. REVIEW OF SYSTEMS: Unobtainable. PHYSICAL EXAMINATION: GENERAL: The patient is intubated and sedated. VITAL SIGNS: Blood pressure is 88/55, with a pulse of 53. She is afebrile. Oxygen saturations are 100% on 70% oxygen. HEENT: Normocephalic and atraumatic. No icterus. NECK: No adenopathy. No JVD. Trachea is midline. C HEST: She has some rales in the bases. CARDIAC: Regular bradycardia without murmur. ABDOMEN: So ft, nontender. Bowel sounds are present. EXTREMITIES: No clubbing, cyanosis, or edema. LABORATORY DATA: White blood count of 16.4 with a hemoglobin of 12.9, and a platelet count of 331. Chemistry group shows a potassium of 3.2, creatinine is 0.6, glucose is 165. LFTs are normal. CK is 172, with a 1.9% CK-MB fraction. Troponin is 0.1, down from 0.12. BNP is 3710. D-dimer is 1.6. An arterial blood gas shows a pH of 7.42 with a pO2 of 88, a CO2 of 38, and a bicarbonate of 25 on IMV at a rate of 20, with a tidal volume of 450 and 60% oxygen. Her pH was 7.21 after intubation e cathy this morning, but on arterial blood gas prior to intubation, her pH was 7.47. IMAGING: Chest x-ray shows diffuse bilateral patchy alveolar infiltrates. The endotracheal tube is in an appropriate position. Images reviewed. Blood cultures are pending. An echocardiogram demonstrates an ejection fraction of 73% with diastolic dysfunction, and an RVSP o f 49 mmHg. ASSESSMENT: 1. Acute hypoxemic respiratory failure. This has required intubation and mechanical ventilation. The patient also had hypercarbia that is now corrected. The most likely cause of this is pneumonia, with diffuse infiltrates. She does have an elevated BNP, and this could be consistent with congest derrek heart failure, although her echocardiogram is somewhat unremarkable. She is currently being liberty ated empirically with ertapenem and vancomycin as well as doxycycline. There have been no sputum cu ltures. 2. Hypertension. The patient had systolic blood pressures in the 70s earlier this morning. These responded to fluids as well as stopping the propofol and substituting Versed instead. This could be related to sepsis. A primary cardiac problem is possible, but less likely, given the unremarkable echocardiogram. 3. Chronic narcotic use. Patient apparently uses a fentanyl patch as well as oxycodone. She is cu rrently on a fentanyl drip. 4. Chronic obstructive pulmonary disease. The patient has diagnosis based on the hospital records and has used inhalers as an outpatient, but I do not see the diagnosis listed in her outpatient lucy rds. She is apparently on oxygen, and she continues to smoke. 5. Hypokalemia. RECOMMENDATIONS: Try propofol again, holding the Versed in the meantime. Precedex can also be used , although she has some bradycardia, which could be worsened by the Precedex. Will wean the ventila tor as tolerated and will check a sputum culture. Will also try to wean the fentanyl. /[id number]/MODL
[2016-10-30] MEDS ORDERED: NOREPINEPHRINE/NS 4 MG/500 ML BAG IV ONE (16:23)
[2016-10-30] MEDS ORDERED: NOREPINEPHRINE/NS 500 ML IV SCH (16:30)
[2016-10-30 19:06] LABS: POTASSIUM 3.8 mEq/L (3.5-5.2)
[2016-10-30] MEDS ORDERED: POTASSIUM Cl (KCl) 50 ML IV ONE (22:12)
[2016-10-31] MEDS: LORazepam 2 MG/ML INJ IVP PRN ×3 (01:56→21:01)
[2016-10-31] MEDS: NS 1,000 ML IV SCH (01:56)
[2016-10-31] MEDS: ALBUTEROL 200 PUFFS/18 GM MDI IH SCH ×6 (04:03→23:43)
[2016-10-31 04:45] LABS: HEMATOCRIT 35.1 % (38.0-47.0); MEAN CELL HEMOGLOBIN 32.3 pg (27.9-34.1); MEAN CELL HEMOGLOBIN CONCENTR. 34.2 g/dL (32.4-36.7); MEAN CELL VOLUME 94.6 fL (81.5-99.8); RED BLOOD CELL COUNT 3.71 10^6/uL (4.18-5.33); RED CELL DISTRIBUTION WIDTH 12.8 % (11.5-15.2)
[2016-10-31 05:04] LABS: ANION GAP 6 mEq/L (8-16); CALCIUM 7.1 mg/dL (8.5-10.4); CARBON DIOXIDE 20 mEq/l (22-31); CHLORIDE 111 mEq/L (97-110); CREATININE 0.4 mg/dL (0.6-1.0); GLOMERULAR FILTRATION RATE > 60; GLUCOSE 109 mg/dL (70-100); MAGNESIUM 1.9 mg/dL (1.6-2.3); POTASSIUM 3.6 mEq/L (3.5-5.2); SODIUM 137 mEq/L (134-144)
[2016-10-31] MEDS: fentaNYL/NACL 100 ML IV SCH ×3 (05:09→17:36)
[2016-10-31] MEDS: PROPOFOL/EMULSION 100 ML IV SCH ×3 (06:24→17:36)
[2016-10-31] MEDS: POTASSIUM Cl (KCl) 50 ML IV SCH ×6 (07:51→14:08)
[2016-10-31] MEDS: VANCOMYCIN HCL/NORMAL SALINE 250 ML IV SCH ×2 (07:56→19:18)
[2016-10-31] MEDS: DOXYCYCLINE INJ 100 MG in NS 250 ML IV SCH ×2 (08:05→21:00)
[2016-10-31] MEDS: CHLORHEXIDINE GLUCONATE 15 ML UDL PO SCH ×2 (08:05→19:18)
[2016-10-31] MEDS: ERTAPENEM 1 GM in NS 100 ML IV SCH (08:05)
[2016-10-31] MEDS: PANTOPRAZOLE SODIUM 40 MG in NS 100 ML IV SCH (08:05)
--- NOTE | 2016-10-31 10:48 | HOSPPROG ---
Hospitalist Progress Note Assessment/Plan: Acute hypoxemic respiratory failure - intubated, ventilated, FiO2 40-->70% overnight. diffuse b/l infiltrates on CXR, +h/o COPD. Also consider HF, diastolic dysfunction on echo. Elevated bnp could be secondary to right heart strain with pulmonary process. Septic shock secondary to PNA - On Levophed. NGTD on BCx's, sputum Cx. Cont Erta, Vanc, Doxy. Has PICC, spot CVP ~20. Elevated troponin - as above, suspect right heart strain. EKG non-ischemic, trop trending down. Chronic pain on chronic continuous opiates - On high dose opiates as outpt ( Fentanyl and Oxycodone), likely contributing to difficulty with sedation. Cont Fentanyl drip. Tobacco abuse DVT PPLX - Lovenox Full code Dispo - cont inpt / ICU Subjective: PT intubated, sedated, grimaces to firm sternal rub. No fevers. Objective: Vital Signs Temp Pulse Resp BP Pulse Ox 37 C 79 39 H 111/56 L 95 10/31/16 08:00 10/31/16 10:00 10/31/16 10:00 10/31/16 10:00 10/31/16 10:00 Microbiology 10/30/16 04:20 - Final Sputum, Induced/Suctioned 10/30/16 16:52 - Final Sputum, Induced/Suctioned Laboratory Results 10/31/16 04:30 10/31/16 04:30 10/30/16 10/31/16 11/01/16 05:59 05:59 05:59 Intake Total 776 4984.4 Output Total 1880 1125 Balance -1104 3859.4 PT 16.4 SEC (12.0-15.0) H 10/30/16 04:20 INR 1.32 (0.83-1.16) H 10/30/16 04:20 - Physical Exam Constitutional: no apparent distress Eyes: PERRL Ears, Nose, Mouth, Throat: moist mucous membranes Cardiovascular: regular rate and rhythym Respiratory: inspiratory crackles Gastrointestinal: normoactive bowel sounds, soft, non-tender abdomen Skin: warm ICD10 Worksheet Patient Problems: Problems Problem Status Onset Congestive heart failure Acute Hypoxemia Acute Respiratory failure Acute
[2016-10-31] MEDS: ENOXAPARIN 40 MG/0.4 ML SYR SC SCH (10:51)
[2016-10-31] MEDS ORDERED: D5W 1/2 NS W/ 20 KCl/L 1,000 ML IV SCH (12:00)
--- NOTE | 2016-10-31 15:57 | PDINTPN ---
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 Likely pneumonia. Could have a component of CHF. Pneumonia: Likely bacterial. WBC remains elevated, but afebrile. On Ertapenem, Vanco. Hx COPD: ? severity. Apparently on oxygen at home, uses albuterol PRN. Chronic Opioid dependence: On Fentanyl Patch and oxycodone as an outpatient. Currently on IV fentanyl. Also requiring Propofol and PRN Ativan for intermittant agitation. Pulmonary HTN: ? acute and/or chronic. ? CHF: BNP elevated. Could be due to pulmonary HTN and acute decompensation. Plan: Continue mechanical vent, antibiotics. Sedation as needed. Will check BNP again, consider Lasix tomorrow if not improving and BP OK. Repeat CXR. 10/31/16 16:00 10/31/16 16:06 Subjective: Intubated, sedated. Objective: Vital Signs Temp Pulse Resp BP Pulse Ox 37 C 74 24 H 120/67 97 10/31/16 08:00 10/31/16 15:00 10/31/16 15:00 10/31/16 15:00 10/31/16 15:00 Microbiology 10/30/16 04:20 - Final Sputum, Induced/Suctioned 10/30/16 16:52 - Final Sputum, Induced/Suctioned Laboratory Results 10/31/16 04:30 10/31/16 04:30 10/30/16 10/31/16 11/01/16 05:59 05:59 05:59 Intake Total 776 4984.4 Output Total 1880 1125 Balance -1104 3859.4 PT 16.4 SEC (12.0-15.0) H 10/30/16 04:20 INR 1.32 (0.83-1.16) H 10/30/16 04:20 Physical Exam - Physical Exam General Appearance: unresponsive, No alert EENT: normal ENT inspection, ET tube Neck: normal inspection Respiratory: lungs clear, normal breath sounds, No accessory muscle use Cardiac/Chest: regular rate, rhythm, No edema Abdomen: normal bowel sounds, non-tender Skin: normal color, warm/dry Extremities: normal inspection Neuro/Psych: No alert, No normal mood/affect ICD10 Worksheet Patient Problems: Problems Problem Status Onset Congestive heart failure Acute Hypoxemia Acute Respiratory failure Acute
[2016-11-01] MEDS: fentaNYL/NACL 100 ML IV SCH ×4 (02:00→19:54)
[2016-11-01] MEDS: LORazepam 2 MG/ML INJ IVP PRN ×4 (04:21→22:52)
[2016-11-01] MEDS: PROPOFOL/EMULSION 100 ML IV SCH ×4 (04:22→20:31)
[2016-11-01] MEDS: ALBUTEROL 200 PUFFS/18 GM MDI IH SCH ×6 (04:28→23:52)
[2016-11-01 05:04] LABS: BASE EXCESS -5.5 mEq/L (-2.5-2.5); BICARBONATE 19 mEq/L (22-26); MEASURED OXYGEN SATURATION 92 % (92-95); PCO2 38 mmHg (34-38); PO2 66 mmHg (65-75); TCO2 21 mEq/L (23-27)
[2016-11-01 05:08] LABS: O2 CONCENTRATIION 60 % (0-100); P/F RATIO 110 RATIO; PATIENT RATE 26; PRESSURE SUPPORT 7; SIMV YES
[2016-11-01 05:32] LABS: % IMMATURE GRANULYOCYTES 0.5 % (0.0-1.1); ABSOLUTE IMMATURE GRANULOCYTES 0.06 10^3/uL (0.00-0.10); ADD DIFF? NO; ADD MORPH? NO; ADD SCAN? NO; ATYPICAL LYMPHOCYTE FLAG 0 (0-99); FRAGMENT RBC FLAG 0 (0-99); HEMATOCRIT 33.7 % (38.0-47.0); HEMOGLOBIN 11.3 g/dL (12.6-16.3); LEFT SHIFT FLG 0 (0-99); LIPEMIA HEMOLYSIS FLAG 80 (0-99); MEAN CELL HEMOGLOBIN 31.7 pg (27.9-34.1); MEAN CELL HEMOGLOBIN CONCENTR. 33.5 g/dL (32.4-36.7); MEAN CELL VOLUME 94.7 fL (81.5-99.8); MEAN PLATELET VOLUME 8.5 fL (8.7-11.7); PLATELET CLUMPS FLAG 0 (0-99); PLATELET COUNT 261 10^3/uL (150-400); RED BLOOD CELL COUNT 3.56 10^6/uL (4.18-5.33); RED CELL DISTRIBUTION WIDTH 13.1 % (11.5-15.2)
[2016-11-01 05:49] LABS: ANION GAP 1 mEq/L (8-16); CARBON DIOXIDE 23 mEq/l (22-31); CHLORIDE 115 mEq/L (97-110); CREATININE 0.5 mg/dL (0.6-1.0); GLOMERULAR FILTRATION RATE > 60; GLUCOSE 121 mg/dL (70-100); MAGNESIUM 1.7 mg/dL (1.6-2.3); POTASSIUM 4.1 mEq/L (3.5-5.2); SODIUM 139 mEq/L (134-144)
[2016-11-01] MEDS ORDERED: MAGNESIUM SULF 1 GM/DEXTROSE 100 ML IV ONE (07:21)
[2016-11-01] MEDS: VANCOMYCIN HCL/NORMAL SALINE 250 ML IV SCH (07:32)
[2016-11-01] MEDS: CHLORHEXIDINE GLUCONATE 15 ML UDL PO SCH ×2 (07:34→19:40)
[2016-11-01] MEDS: DOXYCYCLINE INJ 100 MG in NS 250 ML IV SCH ×2 (08:18→21:32)
[2016-11-01] MEDS: PANTOPRAZOLE SODIUM 40 MG in NS 100 ML IV SCH (08:18)
[2016-11-01] MEDS: ERTAPENEM 1 GM in NS 100 ML IV SCH (08:18)
[2016-11-01] MEDS: ENOXAPARIN 40 MG/0.4 ML SYR SC SCH (08:18)
[2016-11-01] MEDS ORDERED: LACTULOSE 20 GM/30 ML UDCUP PO PRN (11:02)
[2016-11-01] MEDS ORDERED: POLYETHYLENE GLYCOL 3350 17 GM PKT PO PRN (11:02)
[2016-11-01] MEDS ORDERED: BISACODYL 10 MG SUPP PR PRN (11:02)
[2016-11-01] MEDS ORDERED: MAGNESIUM HYDROXIDE 30 ML UDCUP PO PRN (11:02)
[2016-11-01] MEDS: SENNOSIDES/DOCUSATE SODIUM TAB PO SCH ×2 (12:29→20:28)
--- NOTE | 2016-11-01 12:40 | PDINTPN ---
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 Likely pneumonia. Could have a component of CHF. Pneumonia: Likely bacterial. WBC remains elevated, but is falling and she's afebrile. On Ertapenem, Vanco. Hx COPD: ? severity. Apparently on oxygen at home, uses albuterol PRN. Chronic Opioid dependence: On Fentanyl Patch and oxycodone as an outpatient. Currently on IV fentanyl. Also requiring Propofol and PRN Ativan for intermittent agitation. Pulmonary HTN: ? acute and/or chronic. ? CHF: BNP elevated. Could be due to pulmonary HTN and acute decompensation. Plan: Continue mechanical vent, ertapenem. Stop Vanco. Sedation as needed. Will check BNP again, repeat Lasix. Follow CXR. 10/31/16 16:00 10/31/16 16:06 11/01/16 12:38 11/01/16 12:39 Subjective: Intubated, sedated, with intermittent agitation Objective: Vital Signs Temp Pulse Resp BP Pulse Ox 37.2 C 82 21 H 108/46 L 94 11/01/16 12:00 11/01/16 12:00 11/01/16 12:00 11/01/16 12:00 11/01/16 12:00 Microbiology 10/30/16 16:52 - Final Sputum, Induced/Suctioned Sputum Culture - Final 10/30/16 04:20 - Final Sputum, Induced/Suctioned Sputum Culture - Final Laboratory Results 11/01/16 05:00 11/01/16 05:00 10/31/16 11/01/16 11/02/16 05:59 05:59 05:59 Intake Total 4984.4 5039 Output Total 1125 978.7 Balance 3859.4 4060.3 PT 16.4 SEC (12.0-15.0) H 10/30/16 04:20 INR 1.32 (0.83-1.16) H 10/30/16 04:20 CXR: Increased infiltrates. Images reviewed. Microbiology 10/30/16 16:52 Sputum, Induced/Suctioned - Final 10/30/16 16:52 Sputum, Induced/Suctioned Sputum Culture - Final Physical Exam - Physical Exam General Appearance: no apparent distress, No alert EENT: normal ENT inspection Neck: normal inspection Respiratory: crackles Cardiac/Chest: regular rate, rhythm, edema (1+) Abdomen: normal bowel sounds, non-tender, soft Skin: normal color, warm/dry Neuro/Psych: No alert, No motor weakness ICD10 Worksheet Patient Problems: Problems Problem Status Onset Congestive heart failure Acute Hypoxemia Acute Respiratory failure Acute
[2016-11-01] MEDS ORDERED: FUROSEMIDE 40 MG/4 ML VIAL IVP ONE (12:41)
--- NOTE | 2016-11-01 14:26 | HOSPPROG ---
Hospitalist Progress Note Assessment/Plan: Acute hypoxemic respiratory failure - intubated, ventilated. P:F ratio c/w ARDS. diffuse b/l infiltrates on CXR likely c/w PNA. Afebrile, wbc's trending down. +h/o COPD. Also consider HF element, diastolic dysfunction on echo, pulm htn. Elevated bnp could be secondary to right heart strain with pulmonary process. -Cont Ertapenem, Doxy, Vanc d/c'd -Repeat Lasix today Hypotension - possibly septic shock secondary to PNA vs Propofol induced - Off Levophed. NGTD on BCx's, sputum Cx. Cont Erta, Doxy. Has PICC. Elevated troponin - as above, suspect right heart strain. EKG non-ischemic, trop trending down. Chronic pain on chronic continuous opiates - On high dose opiates as outpt ( Fentanyl and Oxycodone), likely contributing to difficulty with sedation. Cont Fentanyl drip, wean as able. Tobacco abuse DVT PPLX - Lovenox Full code Dispo - cont inpt / ICU Subjective: Pt intubated, sedated. No fevers. Difficulty with sedation, intermittently agitated. Objective: Vital Signs Temp Pulse Resp BP Pulse Ox 37.2 C 82 25 H 120/64 96 11/01/16 12:00 11/01/16 14:00 11/01/16 14:00 11/01/16 14:00 11/01/16 14:00 Microbiology 10/30/16 16:52 - Final Sputum, Induced/Suctioned Sputum Culture - Final 10/30/16 04:20 - Final Sputum, Induced/Suctioned Sputum Culture - Final Laboratory Results 11/01/16 05:00 11/01/16 05:00 10/31/16 11/01/16 11/02/16 05:59 05:59 05:59 Intake Total 4984.4 5039 60 Output Total 1125 978.7 275 Balance 3859.4 4060.3 -215 PT 16.4 SEC (12.0-15.0) H 10/30/16 04:20 INR 1.32 (0.83-1.16) H 10/30/16 04:20 - Physical Exam Eyes: PERRL Cardiovascular: regular rate and rhythym Respiratory: bronchial breath sounds Gastrointestinal: normoactive bowel sounds, soft, non-tender abdomen Skin: warm ICD10 Worksheet Patient Problems: Problems Problem Status Onset Congestive heart failure Acute Hypoxemia Acute Respiratory failure Acute
[2016-11-01 18:32] LABS: POTASSIUM 3.7 mEq/L (3.5-5.2)
[2016-11-01] MEDS ORDERED: POTASSIUM Cl (KCl) 50 ML IV ONE (19:20)
[2016-11-01] MEDS ORDERED: SENNOSIDES/DOCUSATE SODIUM TAB PO SCH (21:00)
[2016-11-02] MEDS: fentaNYL/NACL 100 ML IV SCH ×4 (02:04→21:09)
[2016-11-02] MEDS: PROPOFOL/EMULSION 100 ML IV SCH ×3 (03:08→13:50)
[2016-11-02] MEDS: LORazepam 2 MG/ML INJ IVP PRN ×2 (04:14→09:27)
[2016-11-02] MEDS: ALBUTEROL 200 PUFFS/18 GM MDI IH SCH ×6 (04:48→23:53)
[2016-11-02 05:27] LABS: BASE EXCESS -2.2 mEq/L (-2.5-2.5); BICARBONATE 23 mEq/L (22-26); MEASURED OXYGEN SATURATION 93 % (92-95); PCO2 45 mmHg (34-38); PO2 71 mmHg (65-75); TCO2 25 mEq/L (23-27)
[2016-11-02 05:30] LABS: O2 CONCENTRATIION 55 % (0-100); P/F RATIO 129 RATIO; PATIENT RATE 25; PRESSURE SUPPORT 7; SIMV YES
[2016-11-02 05:53] LABS: % IMMATURE GRANULYOCYTES 0.7 % (0.0-1.1); ABSOLUTE IMMATURE GRANULOCYTES 0.07 10^3/uL (0.00-0.10); ADD DIFF? NO; ADD MORPH? NO; ADD SCAN? NO; ATYPICAL LYMPHOCYTE FLAG 0 (0-99); FRAGMENT RBC FLAG 0 (0-99); HEMATOCRIT 32.4 % (38.0-47.0); HEMOGLOBIN 10.6 g/dL (12.6-16.3); LEFT SHIFT FLG 0 (0-99); LIPEMIA HEMOLYSIS FLAG 80 (0-99); MEAN CELL HEMOGLOBIN 31.5 pg (27.9-34.1); MEAN CELL HEMOGLOBIN CONCENTR. 32.7 g/dL (32.4-36.7); MEAN CELL VOLUME 96.4 fL (81.5-99.8); MEAN PLATELET VOLUME 8.6 fL (8.7-11.7); PLATELET CLUMPS FLAG 20 (0-99); PLATELET COUNT 246 10^3/uL (150-400); RED BLOOD CELL COUNT 3.36 10^6/uL (4.18-5.33); RED CELL DISTRIBUTION WIDTH 13.5 % (11.5-15.2)
[2016-11-02 06:07] LABS: ANION GAP 5 mEq/L (8-16); CALCIUM 7.5 mg/dL (8.5-10.4); CARBON DIOXIDE 24 mEq/l (22-31); CHLORIDE 111 mEq/L (97-110); CREATININE 0.4 mg/dL (0.6-1.0); GLOMERULAR FILTRATION RATE > 60; GLUCOSE 121 mg/dL (70-100); MAGNESIUM 1.8 mg/dL (1.6-2.3); SODIUM 140 mEq/L (134-144)
[2016-11-02] MEDS ORDERED: MAGNESIUM SULF 1 GM/DEXTROSE 100 ML IV ONE (06:23)
[2016-11-02] MEDS: CHLORHEXIDINE GLUCONATE 15 ML UDL PO SCH ×2 (09:04→20:55)
[2016-11-02] MEDS: ERTAPENEM 1 GM in NS 100 ML IV SCH (09:05)
[2016-11-02] MEDS: SENNOSIDES/DOCUSATE SODIUM TAB PO SCH ×2 (09:05→21:24)
[2016-11-02] MEDS: ENOXAPARIN 40 MG/0.4 ML SYR SC SCH (09:05)
[2016-11-02] MEDS: PANTOPRAZOLE SODIUM 40 MG in NS 100 ML IV SCH (09:05)
[2016-11-02] MEDS: DOXYCYCLINE INJ 100 MG in NS 250 ML IV SCH ×2 (09:05→21:08)
[2016-11-02] MEDS ORDERED: FUROSEMIDE 40 MG/4 ML VIAL IVP ONE (10:52)
--- NOTE | 2016-11-02 13:14 | PDINTPN ---
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 Likely pneumonia. Could have a component of CHF. Pneumonia: Likely bacterial. WBC remains elevated, but is falling and she's afebrile. On Ertapenem, doxycycline Hx COPD: ? severity. Apparently on oxygen at home, uses albuterol PRN. Chronic Opioid dependence: On Fentanyl Patch and oxycodone as an outpatient. Currently on IV fentanyl. Also requiring Propofol and PRN Ativan for intermittent agitation. Pulmonary HTN: ? acute and/or chronic. ? CHF: BNP elevated. Could be due to pulmonary HTN and acute decompensation. Plan: Continue mechanical vent, ertapenem, doxycycline. Sedation as needed, will try to wean today. Decrease FIO2 as tolerated. Will check BNP again, repeat Lasix. Follow CXR. 11/02/16 13:13 Subjective: Intubated, sedated Objective: Vital Signs Temp Pulse Resp BP Pulse Ox 37.1 C 68 24 H 93/45 L 95 11/02/16 08:00 11/02/16 12:00 11/02/16 12:00 11/02/16 12:00 11/02/16 12:00 Microbiology 10/30/16 16:52 - Final Sputum, Induced/Suctioned Sputum Culture - Final 10/30/16 04:20 - Final Sputum, Induced/Suctioned Sputum Culture - Final Laboratory Results 11/02/16 05:33 11/02/16 05:33 11/01/16 11/02/16 11/03/16 05:59 05:59 05:59 Intake Total 5039 3656 Output Total 978.7 2755 Balance 4060.3 901 PT 16.4 SEC (12.0-15.0) H 10/30/16 04:20 INR 1.32 (0.83-1.16) H 10/30/16 04:20 Laboratory Tests 11/02/16 05:33 NT-Pro-B Natriuret Pep 1240 H Physical Exam - Physical Exam General Appearance: unresponsive EENT: normal ENT inspection, ET tube Neck: normal inspection Respiratory: crackles (bilateral) Cardiac/Chest: regular rate, rhythm, edema (trace) Abdomen: normal bowel sounds, non-tender Skin: normal color, warm/dry Extremities: normal inspection Neuro/Psych: No alert, No oriented x 3 ICD10 Worksheet Patient Problems: Problems Problem Status Onset Congestive heart failure Acute Hypoxemia Acute Respiratory failure Acute
--- NOTE | 2016-11-02 15:27 | HOSPPROG ---
Hospitalist Progress Note Assessment/Plan: Acute hypoxemic respiratory failure - intubated, ventilated. P:F ratio c/w ARDS. Decreased O2 requirement, down to 50% from 70%. Diffuse b/l infiltrates on CXR likely c/w PNA. Afebrile, wbc's trending down. +h/o COPD. Also consider HF element, diastolic dysfunction on echo, pulm htn. Elevated bnp could be secondary to right heart strain with pulmonary process. -Cont Ertapenem, Doxy -Repeat Lasix today -wean vent as able Hypotension - resolved - Off Levophed. NGTD on BCx's, sputum Cx. Cont Erta, Doxy. Has PICC. Elevated troponin - as above, suspect right heart strain. EKG non-ischemic, trop trending down. Chronic pain on chronic continuous opiates - On high dose opiates as outpt ( Fentanyl and Oxycodone), likely contributing to difficulty with sedation. Cont Fentanyl drip, wean as able. Tobacco abuse DVT PPLX - Lovenox Full code Dispo - cont inpt / ICU Subjective: Intubated, sedated. Afebrile. Objective: Vital Signs Temp Pulse Resp BP Pulse Ox 37.1 C 67 24 H 114/54 L 96 11/02/16 08:00 11/02/16 15:00 11/02/16 15:00 11/02/16 15:00 11/02/16 15:00 Microbiology 10/30/16 16:52 - Final Sputum, Induced/Suctioned Sputum Culture - Final 10/30/16 04:20 - Final Sputum, Induced/Suctioned Sputum Culture - Final Laboratory Results 11/02/16 05:33 11/02/16 05:33 11/01/16 11/02/16 11/03/16 05:59 05:59 05:59 Intake Total 5039 3656 Output Total 978.7 2755 Balance 4060.3 901 PT 16.4 SEC (12.0-15.0) H 10/30/16 04:20 INR 1.32 (0.83-1.16) H 10/30/16 04:20 - Physical Exam Constitutional: no apparent distress Cardiovascular: regular rate and rhythym Respiratory: no respiratory distress, inspiratory crackles Gastrointestinal: normoactive bowel sounds, soft, non-tender abdomen Skin: warm ICD10 Worksheet Patient Problems: Problems Problem Status Onset Congestive heart failure Acute Hypoxemia Acute Respiratory failure Acute
[2016-11-02 19:37] LABS: POTASSIUM 3.4 mEq/L (3.5-5.2)
[2016-11-02] MEDS: SENNOSIDES 17.6 MG/10 ML UDL - IF LIQUID ORDERED TUBE SCH (21:07)
[2016-11-02] MEDS: POTASSIUM Cl (KCl) 50 ML IV SCH (23:46)
[2016-11-03] MEDS: POTASSIUM Cl (KCl) 50 ML IV SCH ×5 (00:50→22:09)
[2016-11-03] MEDS: fentaNYL/NACL 100 ML IV SCH ×3 (03:57→17:52)
[2016-11-03] MEDS: ALBUTEROL 200 PUFFS/18 GM MDI IH SCH ×5 (04:29→20:10)
[2016-11-03] MEDS: LORazepam 2 MG/ML INJ IVP PRN ×3 (04:30→17:01)
[2016-11-03 05:30] LABS: MAGNESIUM 1.8 mg/dL (1.6-2.3); POTASSIUM 4.2 mEq/L (3.5-5.2)
[2016-11-03] MEDS ORDERED: MAGNESIUM SULF 1 GM/DEXTROSE 100 ML IV ONE (08:09)
[2016-11-03] MEDS: ERTAPENEM 1 GM in NS 100 ML IV SCH (09:00)
[2016-11-03] MEDS: CHLORHEXIDINE GLUCONATE 15 ML UDL PO SCH ×2 (09:00→20:19)
[2016-11-03] MEDS: PANTOPRAZOLE SODIUM 40 MG in NS 100 ML IV SCH (09:00)
[2016-11-03] MEDS: DOXYCYCLINE INJ 100 MG in NS 250 ML IV SCH ×2 (09:00→20:20)
[2016-11-03] MEDS: SENNOSIDES 17.6 MG/10 ML UDL - IF LIQUID ORDERED TUBE SCH ×2 (09:08→20:20)
[2016-11-03] MEDS: ENOXAPARIN 40 MG/0.4 ML SYR SC SCH (09:08)
[2016-11-03] MEDS: PROPOFOL/EMULSION 100 ML IV SCH ×3 (09:09→22:40)
--- NOTE | 2016-11-03 12:19 | HOSPPROG ---
Hospitalist Progress Note Assessment/Plan: Acute hypoxemic respiratory failure - intubated, ventilated. P:F ratio c/w ARDS. Decreased O2 requirement, down to 40% FiO2 from 70%. Diffuse b/l infiltrates on CXR likely c/w PNA. Afebrile, wbc's trending down. +h/o COPD. Also consider HF element, diastolic dysfunction on echo, pulm htn. Elevated bnp could be secondary to right heart strain with pulmonary process. -Cont Ertapenem, Doxy -Diurese as tolerated -wean vent as able -attempting to wean high dose fentanyl / propofol Hypotension - resolved - Off Levophed. NGTD on BCx's, sputum Cx. Cont Erta, Doxy. Has PICC. Elevated troponin - as above, suspect right heart strain. EKG non-ischemic, trop trending down. Chronic pain on chronic continuous opiates - On high dose opiates as outpt ( Fentanyl and Oxycodone), likely contributing to difficulty with sedation. Cont Fentanyl drip, attempting to wean today. Will add clonidine per tube to see if this helps with reducing opiate dose. D/C if any hypotension. Tobacco abuse DVT PPLX - Lovenox Full code Dispo - cont inpt / ICU Subjective: Intubated, sedated. Responsive to painful stimuli. Objective: Vital Signs Temp Pulse Resp BP Pulse Ox 36.4 C 70 24 H 130/58 H 95 11/03/16 08:00 11/03/16 12:00 11/03/16 12:00 11/03/16 12:00 11/03/16 12:00 Laboratory Results 11/02/16 05:33 11/03/16 05:10 11/02/16 11/03/16 11/04/16 05:59 05:59 05:59 Intake Total 3656 2716 Output Total 8312 8290 Balance 901 -264 PT 16.4 SEC (12.0-15.0) H 10/30/16 04:20 INR 1.32 (0.83-1.16) H 10/30/16 04:20 - Physical Exam Eyes: PERRL Cardiovascular: regular rate and rhythym Respiratory: no respiratory distress Gastrointestinal: normoactive bowel sounds, soft, non-tender abdomen Skin: warm ICD10 Worksheet Patient Problems: Problems Problem Status Onset Congestive heart failure Acute Hypoxemia Acute Respiratory failure Acute
[2016-11-03] MEDS ORDERED: FUROSEMIDE 40 MG/4 ML VIAL IVP ONE (13:54)
--- NOTE | 2016-11-03 13:55 | PDINTPN ---
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 Likely pneumonia. Could have a component of CHF. Pneumonia: Likely bacterial. WBC remains elevated, but is falling and she's afebrile. On Ertapenem, doxycycline Hx COPD: ? severity. Apparently on oxygen at home, uses albuterol PRN. Chronic Opioid dependence: On Fentanyl Patch and oxycodone as an outpatient. Currently on IV fentanyl. Also requiring Propofol and PRN Ativan for intermittent agitation. Pulmonary HTN: ? acute and/or chronic. ? CHF: BNP elevated. Could be due to pulmonary HTN and acute decompensation. Plan: Continue mechanical vent, ertapenem, doxycycline. Sedation as needed, will wean Fentanyl today. Decrease FIO2 as tolerated. Will check BNP again, repeat Lasix. Follow CXR. 11/03/16 13:54 11/03/16 13:56 Subjective: Intubated, sedated, unresponsive Objective: Vital Signs Temp Pulse Resp BP Pulse Ox 36.4 C 68 35 H 130/58 H 93 11/03/16 08:00 11/03/16 12:36 11/03/16 12:36 11/03/16 12:00 11/03/16 12:36 Laboratory Results 11/02/16 05:33 11/03/16 05:10 11/02/16 11/03/16 11/04/16 05:59 05:59 05:59 Intake Total 3656 2716 Output Total 2755 2980 Balance 901 -264 PT 16.4 SEC (12.0-15.0) H 10/30/16 04:20 INR 1.32 (0.83-1.16) H 10/30/16 04:20 CXR: Improved right, slightly worse left base infiltrates. Images reviewed Physical Exam - Physical Exam General Appearance: unresponsive, No alert EENT: normal ENT inspection, ET tube Neck: normal inspection Respiratory: rales Cardiac/Chest: regular rate, rhythm, No edema Abdomen: normal bowel sounds, non-tender, soft Skin: normal color, warm/dry Extremities: normal inspection Neuro/Psych: No alert, No oriented x 3 ICD10 Worksheet Patient Problems: Problems Problem Status Onset Congestive heart failure Acute Hypoxemia Acute Respiratory failure Acute
[2016-11-03 18:57] LABS: POTASSIUM 3.6 mEq/L (3.5-5.2)
[2016-11-04] MEDS: ALBUTEROL 200 PUFFS/18 GM MDI IH SCH ×7 (01:19→23:47)
[2016-11-04] MEDS: fentaNYL/NACL 100 ML IV SCH ×2 (03:45→12:00)
[2016-11-04] MEDS: PROPOFOL/EMULSION 100 ML IV SCH ×4 (03:53→21:08)
[2016-11-04 06:48] LABS: POTASSIUM 4.1 mEq/L (3.5-5.2)
[2016-11-04] MEDS: ENOXAPARIN 40 MG/0.4 ML SYR SC SCH (08:01)
[2016-11-04] MEDS: FUROSEMIDE 40 MG/4 ML VIAL IVP SCH (08:01)
[2016-11-04] MEDS: CHLORHEXIDINE GLUCONATE 15 ML UDL PO SCH ×2 (08:01→21:20)
[2016-11-04] MEDS: PANTOPRAZOLE SODIUM 40 MG in NS 100 ML IV SCH (08:02)
[2016-11-04] MEDS: DOXYCYCLINE INJ 100 MG in NS 250 ML IV SCH ×2 (08:03→21:20)
[2016-11-04] MEDS: SENNOSIDES 17.6 MG/10 ML UDL - IF LIQUID ORDERED TUBE SCH ×2 (08:03→20:48)
[2016-11-04] MEDS: ERTAPENEM 1 GM in NS 100 ML IV SCH (08:03)
[2016-11-04] MEDS: LORazepam 2 MG/ML INJ IVP PRN (09:10)
--- NOTE | 2016-11-04 11:25 | HOSPPROG ---
Hospitalist Progress Note Assessment/Plan: 66 yo female with h/o COPD on chronic O2 and fibromyalgia on chronic opiates presented to ED via EMS with acute SOB and required emergent intubation upon arrival. Acute hypoxemic respiratory failure - intubated, ventilated x6 days. P:F ratio c/w ARDS. O2 requirement down to 40% FiO2 from 70%, did poorly on CPAP trial today though off vent for 30 minutes. Diffuse b/l infiltrates on CXR likely c/ w PNA. Afebrile, wbc's trending down. +h/o COPD. Also consider HF element, diastolic dysfunction on echo, pulm htn. BNP nearly normalized. Weight 73 kg on arrival --> 79 kg after resuscitation --> 76 kg today with diuresis. -Cont Ertapenem, Doxy -Daily IV Lasix as tolerated -repeat CPAP trial today -cont fentanyl at 75 / hr (down from 150/hr), on 75 mcg patch at home Hypotension - resolved - Off Levophed. NGTD on BCx's, sputum Cx. Cont Erta, Doxy. Has PICC. Elevated troponin - as above, suspect right heart strain. EKG non-ischemic, trop trending down. Chronic pain on chronic continuous opiates - On high dose opiates as outpt ( Fentanyl and Oxycodone 60 mg TID), likely contributing to difficulty with sedation. Will add clonidine per tube to see if this helps with reducing opiate dose. D/C if any hypotension. Tobacco abuse DVT PPLX - Lovenox Full code Dispo - cont inpt / ICU Objective: Vital Signs Temp Pulse Resp BP Pulse Ox 36.4 C 91 24 H 123/58 H 95 11/04/16 08:00 11/04/16 10:00 11/04/16 10:00 11/04/16 10:00 11/04/16 10:00 Microbiology 10/30/16 00:45 Blood Culture - Final Blood 10/30/16 00:07 Blood Culture - Final Blood Laboratory Results 11/02/16 05:33 11/04/16 06:15 11/03/16 11/04/16 11/05/16 05:59 05:59 05:59 Intake Total 6482 3784 Output Total 2980 3000 1950 Balance -264 754 -1950 PT 16.4 SEC (12.0-15.0) H 10/30/16 04:20 INR 1.32 (0.83-1.16) H 10/30/16 04:20 ICD10 Worksheet Patient Problems: Problems Problem Status Onset Congestive heart failure Acute Hypoxemia Acute Respiratory failure Acute
--- NOTE | 2016-11-04 12:14 | PDINTPN ---
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 Likely pneumonia. Could have a component of CHF, likely improved, with BNP down. Failed CPAP after 40 minutes this morning. Pneumonia: Likely bacterial. WBC remains elevated, but is falling and she's afebrile. On Ertapenem, doxycycline Hx COPD: ? severity. Apparently on oxygen at home, uses albuterol PRN. Chronic Opioid dependence: On Fentanyl Patch and oxycodone as an outpatient. Currently on IV fentanyl. Also requiring Propofol and PRN Ativan for intermittent agitation. Pulmonary HTN: ? acute and/or chronic. ? CHF: BNP elevated. Could be due to pulmonary HTN and acute decompensation. Plan: Continue mechanical vent, will try to decrease vent rate. Continue ertapenem, doxycycline. Sedation as needed, keep Fentanyl at 75, which is apparently her patch dose, although it's not certain that she was on that or that Fentanyl was the only narcotic she was taking. Will continue Lasix unless/ until BUN climbs or she is otherwise clinically dry. Follow CXR. 11/04/16 12:14 11/04/16 12:17 Subjective: Intubated, sedated Objective: Vital Signs Temp Pulse Resp BP Pulse Ox 36.4 C 91 24 H 123/58 H 95 11/04/16 08:00 11/04/16 10:00 11/04/16 10:00 11/04/16 10:00 11/04/16 10:00 Microbiology 10/30/16 00:45 Blood Culture - Final Blood 10/30/16 00:07 Blood Culture - Final Blood Laboratory Results 11/02/16 05:33 11/04/16 06:15 11/03/16 11/04/16 11/05/16 05:59 05:59 05:59 Intake Total 8314 3754 Output Total 2980 3000 1950 Balance -264 754 -1950 PT 16.4 SEC (12.0-15.0) H 10/30/16 04:20 INR 1.32 (0.83-1.16) H 10/30/16 04:20 CXR: Persistent bilateral infiltrates, unchanged. Images reviewed. Physical Exam - Physical Exam General Appearance: unresponsive, No alert EENT: normal ENT inspection Neck: normal inspection Respiratory: lungs clear, crackles (bases) Cardiac/Chest: regular rate, rhythm, edema (1+) Abdomen: normal bowel sounds, soft, No hepatomegaly, No splenomegaly Skin: normal color, warm/dry Extremities: normal inspection Neuro/Psych: No alert, No oriented x 3 ICD10 Worksheet Patient Problems: Problems Problem Status Onset Congestive heart failure Acute Hypoxemia Acute Respiratory failure Acute
[2016-11-04 12:43] LABS: BICARBONATE 32 mEq/L (22-26); MEASURED OXYGEN SATURATION 96 % (92-95); PCO2 48 mmHg (34-38); PO2 89 mmHg (65-75); TCO2 33 mEq/L (23-27)
[2016-11-04 12:44] LABS: O2 CONCENTRATIION 40 % (0-100); P/F RATIO 223 RATIO; SIMV YES
[2016-11-04 12:45] LABS: END TIDAL CO2 45; PATIENT RATE 19; PRESSURE SUPPORT 7
[2016-11-04 18:03] LABS: POTASSIUM 4.1 mEq/L (3.5-5.2)
[2016-11-05] MEDS: fentaNYL/NACL 100 ML IV SCH ×2 (02:15→21:48)
[2016-11-05] MEDS: PROPOFOL/EMULSION 100 ML IV SCH ×2 (02:47→13:17)
[2016-11-05] MEDS: ALBUTEROL 200 PUFFS/18 GM MDI IH SCH ×7 (04:24→23:51)
[2016-11-05 05:21] LABS: BASE EXCESS 6.1 mEq/L (-2.5-2.5); BICARBONATE 31 mEq/L (22-26); MEASURED OXYGEN SATURATION 98 % (92-95); PCO2 46 mmHg (34-38); PO2 106 mmHg (65-75); TCO2 32 mEq/L (23-27)
[2016-11-05 05:22] LABS: CPAP YES; O2 CONCENTRATIION 40 % (0-100); P/F RATIO 265 RATIO; PATIENT RATE 19; PRESSURE SUPPORT 7
[2016-11-05] MEDS: CHLORHEXIDINE GLUCONATE 15 ML UDL PO SCH ×2 (08:03→22:33)
[2016-11-05] MEDS: FUROSEMIDE 40 MG/4 ML VIAL IVP SCH (08:59)
[2016-11-05] MEDS: ENOXAPARIN 40 MG/0.4 ML SYR SC SCH (08:59)
[2016-11-05] MEDS: PANTOPRAZOLE SODIUM 40 MG in NS 100 ML IV SCH (08:59)
[2016-11-05] MEDS: DOXYCYCLINE INJ 100 MG in NS 250 ML IV SCH ×2 (08:59→22:34)
[2016-11-05] MEDS: ERTAPENEM 1 GM in NS 100 ML IV SCH (08:59)
[2016-11-05] MEDS: SENNOSIDES 17.6 MG/10 ML UDL - IF LIQUID ORDERED TUBE SCH ×2 (09:00→22:34)
[2016-11-05] MEDS ORDERED: MAGNESIUM HYDROXIDE 30 ML UDCUP TUBE PRN (10:46)
[2016-11-05] MEDS ORDERED: POLYETHYLENE GLYCOL 3350 17 GM PKT TUBE PRN (10:46)
[2016-11-05] MEDS ORDERED: LACTULOSE 20 GM/30 ML UDCUP TUBE PRN (10:46)
[2016-11-05] MEDS ORDERED: ALBUTEROL 200 PUFFS/18 GM MDI IH PRN (12:45)
--- NOTE | 2016-11-05 12:46 | HOSPPROG ---
Hospitalist Progress Note Assessment/Plan: 66 yo female admitted 10/30 with h/o COPD on chronic O2 and fibromyalgia on chronic opiates presented to ED via EMS with acute hypoxic respiratory failure requiring emergent intubation on arrival # Acute on chronic hypoxemic respiratory failure - remains intubated, likely multifactorial with diffuse bilateral infiltrates noted on personal review of cxr. ARDS likely contributing as well as decompensated diastolic heart failure as well as pneumonia and copd with acute exacerbation. Not tolerating CPAP trials well, continued diuresis, continue abx, bronchodilators. PE another possibility with elevated dimer and trop as well as right heart strain but given alternative explanation more likely has not yet had CTA and will hold off for now. # ARDS: in setting of above with diffuse bilateral infiltrates and P:F ratio c/ w ARDS. Tx as above # acute decompensated diastolic heart failure: weight remains up about 6kd from admission, continue IV lasix, monitoring I/O's # shock: now off of levophed, septic shock most likely with leukocytosis/ tachycardia and pneumonia present on arrival and echo relatively unremarkable, resolved. # pneumonia: diffuse bilateral infiltrates now c/w ARDS with likely underlying pna, continued on ertapenem and doxy # elevated trop: in setting of above and likely related to demand ischemia, no wall motion abnormalities on echo and trop elevation essentially flat # pulmonary hypertension: right heart strain noted on echo in setting of above, again, consider CTA to eval for PE # chronic pain with continuous opiate use and dependency: on high dose opiates as an OP, fentanyl IV for now # Tobacco use: cessation counseling when extubated # LMWH # FC # Dispo: remains critically ill in ICU Patient new to my care. Old records reviewed and summarized as above. Care plan reviewed with Dr. Sterling and multidisciplinary care team on rounds. Subjective: no change in status, remains vented, sedated, significant agitation with cpap trial and lightening of sedation Objective: Vital Signs Temp Pulse Resp BP Pulse Ox 36.7 C 81 24 H 141/73 H 94 11/05/16 10:00 11/05/16 10:00 11/05/16 10:00 11/05/16 10:00 11/05/16 10:00 Microbiology 10/30/16 00:45 Blood Culture - Final Blood 10/30/16 00:07 Blood Culture - Final Blood Laboratory Results 11/02/16 05:33 11/05/16 05:25 11/04/16 11/05/16 11/06/16 05:59 05:59 05:59 Intake Total 3754 3584 Output Total 3000 3240 Balance 754 344 PT 16.4 SEC (12.0-15.0) H 10/30/16 04:20 INR 1.32 (0.83-1.16) H 10/30/16 04:20 intubated sedated anicteric ett in place rrr no mrg coarse bs, intubated obese soft nt ble edema warm dry well perfused sedated, non responsive - Time Spent With Patient Time Spent with Patient: greater than 35 minutes Time Spent with Patient: Greater than 35 minutes spent on this patients care, greater than 50% of time spent counseling, educating, and coordinating care regarding the above mentioned plan. ICD10 Worksheet Patient Problems: Problems Problem Status Onset Congestive heart failure Acute Respiratory failure Acute Hypoxemia Acute
[2016-11-05] MEDS ORDERED: IPRATROPIUM/ALBUTEROL 4GM MDI IH SCH (16:00)
--- NOTE | 2016-11-05 16:43 | PDINTPN ---
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 Likely pneumonia. Could have a component of CHF, likely improved, with BNP down. She has been able to tolerate CPAP weans more successfully today. . Pneumonia: Likely bacterial. WBC remains elevated, but is falling and she's afebrile. On Ertapenem, doxycycline. Chest x-ray stable Hx COPD: Likely relatively severe question. Apparently on oxygen at home, uses albuterol PRN. Chronic Opioid dependence: On Fentanyl Patch and oxycodone as an outpatient. Currently on IV fentanyl. Also requiring Propofol and PRN Ativan for intermittent agitation. Pulmonary HTN: Likely chronic, may have an acute component?. ? CHF: BNP elevated. Could be due to pulmonary HTN and acute decompensation. Plan: Continue mechanical vent, will decrease vent rate and increase CPAP weans as tolerated. Hope to extubate in the next day or two?. Continue ertapenem, doxycycline. Sedation as needed, keep Fentanyl at about 75, which is apparently her patch dose, although it's not certain that she was on that or that Fentanyl was the only narcotic she was taking. Will continue Lasix diuresis. Follow CXR, ABG, laboratory. 50 minutes of critical care time spent directly with the patient. Discussed with nursing, respiratory, hospitalist, and the ICU multi disciplinary team. Subjective: Sedated, on the ventilator Objective: Vital Signs Temp Pulse Resp BP Pulse Ox 36.7 C 76 24 H 131/60 H 95 11/05/16 12:00 11/05/16 14:00 11/05/16 14:00 11/05/16 14:00 11/05/16 14:00 Laboratory Results 11/02/16 05:33 11/05/16 05:25 11/04/16 11/05/16 11/06/16 05:59 05:59 05:59 Intake Total 3754 3584 Output Total 3000 3240 Balance 754 344 PT 16.4 SEC (12.0-15.0) H 10/30/16 04:20 INR 1.32 (0.83-1.16) H 10/30/16 04:20 Laboratory Tests 11/05/16 05:10 pCO2 46 H pO2 106 H ABG pH 7.44 ABG O2 Saturation 98 H O2 Concentration % 40 PEEP 5 Pressure Support 7 CPAP YES CXR: Patchy bilateral infiltrates persist, overall a little better. Lines and tubes in good position. Physical Exam - Physical Exam General Appearance: no apparent distress, other (Sedated, on the ventilator) EENT: PERRL/EOMI, ET tube, other (NG to) Neck: normal inspection (Mildly elevated jugular venous pressure is) Respiratory: decreased breath sounds (Bilaterally, especially at the bases), rales (Few, nonspecific), wheezing (Minimal,), prolonged expiration, No rhonchi Cardiac/Chest: regular rate, rhythm (Distant heart tones) Abdomen: soft, No normal bowel sounds (Decreased, present) Pelvic Exam: other (Wyatt catheter in place, good urine output) Skin: normal color, warm/dry Extremities: pedal edema Neuro/Psych: no motor/sensory deficits (Appears to move all the extremities weakly but equally), No cognition abnormalities (Cannot assess) ICD10 Worksheet Patient Problems: Problems Problem Status Onset Congestive heart failure Acute Respiratory failure Acute Hypoxemia Acute
[2016-11-06] MEDS: PROPOFOL/EMULSION 100 ML IV SCH ×2 (00:16→06:33)
[2016-11-06 04:04] LABS: BASE EXCESS 7.1 mEq/L (-2.5-2.5); BICARBONATE 32 mEq/L (22-26); MEASURED OXYGEN SATURATION 97 % (92-95); PCO2 50 mmHg (34-38); PO2 97 mmHg (65-75); TCO2 34 mEq/L (23-27)
[2016-11-06 04:05] LABS: CPAP YES; O2 CONCENTRATIION 40 % (0-100); P/F RATIO 243 RATIO; PATIENT RATE 19; PRESSURE SUPPORT 7
[2016-11-06] MEDS: ALBUTEROL 200 PUFFS/18 GM MDI IH SCH ×4 (04:31→16:49)
[2016-11-06 04:40] LABS: % IMMATURE GRANULYOCYTES 0.9 % (0.0-1.1); ABSOLUTE IMMATURE GRANULOCYTES 0.07 10^3/uL (0.00-0.10); ADD DIFF? NO; ADD MORPH? NO; ADD SCAN? NO; ATYPICAL LYMPHOCYTE FLAG 0 (0-99); FRAGMENT RBC FLAG 0 (0-99); HEMATOCRIT 31.6 % (38.0-47.0); HEMOGLOBIN 10.9 g/dL (12.6-16.3); LEFT SHIFT FLG 10 (0-99); LIPEMIA HEMOLYSIS FLAG 90 (0-99); MEAN CELL HEMOGLOBIN 32.8 pg (27.9-34.1); MEAN CELL HEMOGLOBIN CONCENTR. 34.5 g/dL (32.4-36.7); MEAN CELL VOLUME 95.2 fL (81.5-99.8); MEAN PLATELET VOLUME 9.1 fL (8.7-11.7); PLATELET CLUMPS FLAG 0 (0-99); PLATELET COUNT 227 10^3/uL (150-400); RED BLOOD CELL COUNT 3.32 10^6/uL (4.18-5.33); RED CELL DISTRIBUTION WIDTH 12.8 % (11.5-15.2)
[2016-11-06 04:52] LABS: ANION GAP 8 mEq/L (8-16); CALCIUM 8.3 mg/dL (8.5-10.4); CARBON DIOXIDE 32 mEq/l (22-31); CHLORIDE 98 mEq/L (97-110); CREATININE 0.5 mg/dL (0.6-1.0); GLOMERULAR FILTRATION RATE > 60; GLUCOSE 117 mg/dL (70-100); MAGNESIUM 1.9 mg/dL (1.6-2.3); POTASSIUM 3.5 mEq/L (3.5-5.2); SODIUM 138 mEq/L (134-144)
[2016-11-06] MEDS: fentaNYL/NACL 100 ML IV SCH ×2 (06:33→16:18)
[2016-11-06] MEDS: POTASSIUM Cl (KCl) 50 ML IV SCH ×3 (08:59→11:10)
[2016-11-06] MEDS: CHLORHEXIDINE GLUCONATE 15 ML UDL PO SCH (08:59)
[2016-11-06] MEDS: ENOXAPARIN 40 MG/0.4 ML SYR SC SCH (09:00)
[2016-11-06] MEDS: FUROSEMIDE 40 MG/4 ML VIAL IVP SCH (09:00)
[2016-11-06] MEDS: LANSOPRAZOLE SUSP 30MG/10ML UDSYR (Adult) TUBE SCH (09:00)
[2016-11-06] MEDS: DOXYCYCLINE INJ 100 MG in NS 250 ML IV SCH ×2 (09:00→20:22)
[2016-11-06] MEDS: ERTAPENEM 1 GM in NS 100 ML IV SCH (09:00)
[2016-11-06] MEDS: SENNOSIDES 17.6 MG/10 ML UDL - IF LIQUID ORDERED TUBE SCH (09:01)
[2016-11-06 12:02] LABS: CALCULATED OXYGEN SATURATION 94 % (92-95); O2 CONCENTRATIION 40 % (0-100)
--- NOTE | 2016-11-06 12:51 | HOSPPROG ---
Hospitalist Progress Note Assessment/Plan: 66 yo female admitted 10/30 with h/o COPD on chronic O2 and fibromyalgia on chronic opiates presented to ED via EMS with acute hypoxic respiratory failure requiring emergent intubation on arrival # Acute on chronic hypoxemic respiratory failure - remains intubated, likely multifactorial with diffuse bilateral infiltrates noted on personal review of cxr. ARDS likely contributing as well as decompensated diastolic heart failure , pneumonia and copd with acute exacerbation. Will attempt to extubated today, thus far cpap trials limited mostly by agitation. Continue BD, lasix, abx as below. # ARDS: in setting of above with diffuse bilateral infiltrates and P:F ratio c/ w ARDS. Tx as above # acute decompensated diastolic heart failure: weight remains up about 6kd from admission, continue IV lasix, monitoring I/O's # shock: now off of levophed, septic shock most likely with leukocytosis/ tachycardia and pneumonia, resolved. # pneumonia: diffuse bilateral infiltrates now c/w ARDS with likely underlying pna, continued on ertapenem and doxy # elevated trop: in setting of above and likely related to demand ischemia, no wall motion abnormalities on echo and trop elevation essentially flat # pulmonary hypertension: right heart strain noted on echo in setting of above, again, consider CTA to eval for PE # chronic pain with continuous opiate use and dependency: on high dose opiates as an OP, fentanyl IV for now # Tobacco use: cessation counseling when extubated # LMWH # FC # Dispo: remains critically ill in ICU, MDPOA in a bit of question so if unable to extubate may need ethics consult Care plan reviewed with Dr. Sterling and multidisciplinary care team on rounds. Subjective: no acute overnight events, patient remains on vent Objective: Vital Signs Temp Pulse Resp BP Pulse Ox 36.9 C 85 17 142/73 H 95 11/06/16 12:05 11/06/16 12:15 11/06/16 12:05 11/06/16 12:05 11/06/16 12:05 Laboratory Results 11/06/16 04:20 11/06/16 04:20 11/05/16 11/06/16 11/07/16 05:59 05:59 05:59 Intake Total 3584 2522 Output Total 3240 3550 1900 Balance 344 -1028 -1900 PT 16.4 SEC (12.0-15.0) H 10/30/16 04:20 INR 1.32 (0.83-1.16) H 10/30/16 04:20 intubated sedated anicteric ett in place rrr no mrg coarse bs, intubated obese soft nt ble edema warm dry well perfused sedated, non responsive - Time Spent With Patient Time Spent with Patient: greater than 35 minutes Time Spent with Patient: Greater than 35 minutes spent on this patients care, greater than 50% of time spent counseling, educating, and coordinating care regarding the above mentioned plan. ICD10 Worksheet Patient Problems: Problems Problem Status Onset Congestive heart failure Acute Hypoxemia Acute Respiratory failure Acute
--- NOTE | 2016-11-06 14:19 | PDINTPN ---
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 Tolerating CPAP weans. Likely pneumonia, diffuse. Could have a component of CHF, likely improved, with BNP down. She is either over-sedated or agitated with no in between. If she looks good with the neck CPAP wean for 2 hours or greater, then I think will be best to empirically extubate. She has no significant secretions, is on low amounts of oxygen, and her lungs are clear. She likely will do well post extubation but this remains to be seen. Pneumonia: Likely bacterial. WBC now normal, afebrile. On Ertapenem, doxycycline. Chest x-ray stable to slightly improved. Hx COPD: Likely relatively severe?. Apparently on oxygen at home, uses albuterol PRN. Chronic Opioid dependence: On Fentanyl Patch and oxycodone as an outpatient. Currently on IV fentanyl. Also requiring Propofol and PRN Ativan for intermittent agitation. Hopefully all of this can be stopped post extubation other than the chronic narcotics. Pulmonary HTN: Likely chronic, may have an acute component?. ? CHF: BNP elevated. Could be due to pulmonary HTN and acute decompensation. Plan: Continue mechanical vent, repeat CPAP wean this morning and extubate if this is acceptable. Decreased sedatives after and adjust pain medications Continue ertapenem, doxycycline. Keep Fentanyl at about 75 for now, may need to go up slightly if pain becomes an issue is she was on a 75 mcg patch and orals at home. Swallow evaluation post extubation. Will continue Lasix diuresis. Follow CXR, ABG, laboratory. Once extubated, will change to duo nebs. Solu- Medrol will be added to her regimen at 40 mg IV twice daily for an exacerbation of her COPD. 55 minutes of critical care time spent directly with the patient. Discussed with nursing, respiratory, hospitalist, and the ICU multi disciplinary team. Subjective: Sedated, on the ventilator, tolerating CPAP weans. However, sedation alternates with agitation, difficult to find a calm place in between. Objective: Vital Signs Temp Pulse Resp BP Pulse Ox 36.9 C 77 12 150/65 H 90 L 11/06/16 12:05 11/06/16 14:00 11/06/16 14:00 11/06/16 14:00 11/06/16 14:00 Laboratory Results 11/06/16 04:20 11/06/16 04:20 11/05/16 11/06/16 11/07/16 05:59 05:59 05:59 Intake Total 3584 2522 Output Total 3240 2790 2250 Balance 344 -1028 -2250 PT 16.4 SEC (12.0-15.0) H 10/30/16 04:20 INR 1.32 (0.83-1.16) H 10/30/16 04:20 Laboratory Tests 11/06/16 11/06/16 11/06/16 03:53 04:20 11:47 pCO2 51 H pO2 67 ABG pH 7.48 H ABG HCO3 38 H ABG O2 Sat (Calculated) 94 O2 Concentration % 40 CPAP YES Calcium 8.3 L Magnesium 1.9 CXR: Diffuse infiltrates persist, a little better. Lines and tubes in good position Physical Exam - Physical Exam General Appearance: no apparent distress, unresponsive (Opens eyes weakly to stimulation when she is on the ventilator, on sedation), No alert EENT: PERRL/EOMI, ET tube, other (NG to) Neck: normal inspection Respiratory: lungs clear, decreased breath sounds (Course), prolonged expiration , No rales, No rhonchi, No wheezing Cardiac/Chest: regular rate, rhythm Abdomen: non-tender, soft, No normal bowel sounds (Decreased, present) Pelvic Exam: other (Wyatt catheter in place, good urine output) Skin: normal color, warm/dry Lymphatic: no adenopathy Extremities: pedal edema (Trace +) Neuro/Psych: no motor/sensory deficits (Moves all extremities weakly), cognition abnormalities (Hard to assess) ICD10 Worksheet Patient Problems: Problems Problem Status Onset Congestive heart failure Acute Respiratory failure Acute Hypoxemia Acute
[2016-11-06 18:30] LABS: POTASSIUM 3.7 mEq/L (3.5-5.2)
[2016-11-06] MEDS ORDERED: POTASSIUM Cl (KCl) 50 ML IV ONE (19:11)
[2016-11-06] MEDS: methylPREDNISolone SOD SUCC 40 MG/ML VIAL IVP SCH (20:20)
[2016-11-06] MEDS: IPRATROPIUM/ALBUTEROL 3 ML DEYVIAL IH SCH (20:49)
[2016-11-07] MEDS: LORazepam 2 MG/ML INJ IVP PRN ×2 (01:17→13:01)
[2016-11-07] MEDS: SENNOSIDES 17.6 MG/10 ML UDL - IF LIQUID ORDERED TUBE SCH ×2 (03:11→16:45)
[2016-11-07] MEDS: IPRATROPIUM/ALBUTEROL 3 ML DEYVIAL IH SCH ×4 (04:58→20:24)
[2016-11-07 05:03] LABS: BICARBONATE 29 mEq/L (22-26); MEASURED OXYGEN SATURATION 97 % (92-95); PCO2 38 mmHg (34-38); PO2 92 mmHg (65-75); TCO2 31 mEq/L (23-27)
[2016-11-07 06:11] LABS: % IMMATURE GRANULYOCYTES 0.7 % (0.0-1.1); ABSOLUTE IMMATURE GRANULOCYTES 0.06 10^3/uL (0.00-0.10); ADD DIFF? NO; ADD MORPH? NO; ADD SCAN? NO; ATYPICAL LYMPHOCYTE FLAG 0 (0-99); FRAGMENT RBC FLAG 0 (0-99); HEMOGLOBIN 10.8 g/dL (12.6-16.3); LEFT SHIFT FLG 10 (0-99); LIPEMIA HEMOLYSIS FLAG 90 (0-99); MEAN CELL HEMOGLOBIN 31.3 pg (27.9-34.1); MEAN CELL HEMOGLOBIN CONCENTR. 33.8 g/dL (32.4-36.7); MEAN CELL VOLUME 92.8 fL (81.5-99.8); MEAN PLATELET VOLUME 9.1 fL (8.7-11.7); PLATELET CLUMPS FLAG 0 (0-99); PLATELET COUNT 254 10^3/uL (150-400); RED BLOOD CELL COUNT 3.45 10^6/uL (4.18-5.33); RED CELL DISTRIBUTION WIDTH 12.5 % (11.5-15.2)
[2016-11-07] MEDS: fentaNYL/NACL 100 ML IV SCH (06:19)
[2016-11-07 07:23] LABS: ANION GAP 9 mEq/L (8-16); CALCIUM 8.8 mg/dL (8.5-10.4); CARBON DIOXIDE 30 mEq/l (22-31); CHLORIDE 104 mEq/L (97-110); CREATININE 0.5 mg/dL (0.6-1.0); GLOMERULAR FILTRATION RATE > 60; GLUCOSE 113 mg/dL (70-100); POTASSIUM 3.7 mEq/L (3.5-5.2); SODIUM 143 mEq/L (134-144)
[2016-11-07] MEDS: methylPREDNISolone SOD SUCC 40 MG/ML VIAL IVP SCH ×2 (08:45→21:43)
[2016-11-07] MEDS: ENOXAPARIN 40 MG/0.4 ML SYR SC SCH (08:45)
[2016-11-07] MEDS: FUROSEMIDE 40 MG/4 ML VIAL IVP SCH (08:45)
[2016-11-07] MEDS: ERTAPENEM 1 GM in NS 100 ML IV SCH (08:45)
[2016-11-07] MEDS: DOXYCYCLINE INJ 100 MG in NS 250 ML IV SCH ×2 (08:46→21:48)
[2016-11-07] MEDS: LANSOPRAZOLE SUSP 30MG/10ML UDSYR (Adult) TUBE SCH (09:07)
[2016-11-07] MEDS ORDERED: fentaNYL 75 MCG PATCH TD SCH ×2 (10:30)
[2016-11-07] MEDS ORDERED: POTASSIUM CL 10 MEQ TAB PO ONE ×2 (12:04→12:58)
--- NOTE | 2016-11-07 14:08 | PDINTPN ---
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 Has done well since extubation. On 3 L. Likely pneumonia, diffuse. Could have a component of CHF, improved, with BNP down. Pneumonia: Likely bacterial. WBC now normal, afebrile. On Ertapenem, doxycycline. Chest x-ray slightly improved. Hx COPD: Likely relatively severe?. Apparently on oxygen at home, uses albuterol PRN. On nebulized treatments as well as steroids Chronic Opioid dependence: Off fentanyl drip. A fentanyl patch to be restarted. Additional oral pain medications may be needed. We will not be able to take away all of her pain. Pulmonary HTN: Likely chronic, may have an acute component?. ? CHF: BNP elevated. Could be due to pulmonary HTN and acute decompensation. Plan: Continue care in the intensive care unit, bronchopulmonary therapies, antibiotics, and steroids. Decreased sedatives after and adjust pain medications for re-initiation of fentanyl patch today. Swallow evaluation today. Will continue Lasix diuresis. Follow CXR, ABG, laboratory. 40 minutes of critical care time spent directly with the patient. Discussed with nursing, respiratory, hospitalist, and the ICU multi disciplinary team. Subjective: Doing okay, complains of pain when moved, has an intermittent irritative cough. Denies significant shortness of breath. Objective: Vital Signs Temp Pulse Resp BP Pulse Ox 37.9 C 65 16 151/71 H 941 H 11/07/16 08:00 11/07/16 11:32 11/07/16 11:32 11/07/16 08:00 11/07/16 11:32 Laboratory Results 11/07/16 06:03 11/07/16 06:03 11/06/16 11/07/16 11/08/16 05:59 05:59 05:59 Intake Total 2522 1329 Output Total 3550 4000 Balance -1028 -4311 PT 16.4 SEC (12.0-15.0) H 10/30/16 04:20 INR 1.32 (0.83-1.16) H 10/30/16 04:20 Laboratory Tests 11/07/16 11/07/16 04:56 06:03 pCO2 38 pO2 92 H ABG pH 7.50 H ABG O2 Saturation 97 H Total O2 Concentration 4.0 Calcium 8.8 CXR: Infiltrates persist but appear to be somewhat better Physical Exam - Physical Exam General Appearance: alert, mild distress (At time secondary to pain?) EENT: PERRL/EOMI, other (Nasal cannula in place at 3 L) Neck: normal inspection Respiratory: lungs clear (Anteriorly), decreased breath sounds (At bases), rales (Few rales at bases), wheezing (Minimal), prolonged expiration, No rhonchi (No significant rhonchi however mild central upper airway congestion is present with cough) Cardiac/Chest: regular rate, rhythm Abdomen: normal bowel sounds, non-tender, soft Pelvic Exam: other (Wyatt catheter in place, output greater than input last 24 hours) Skin: warm/dry, pallor Lymphatic: no adenopathy Extremities: pedal edema (Trace to 1+) Neuro/Psych: no motor/sensory deficits (Moves all extremities), cognition abnormalities (Oriented to person and place) ICD10 Worksheet Patient Problems: Problems Problem Status Onset Congestive heart failure Acute Respiratory failure Acute Hypoxemia Acute
[2016-11-07] MEDS ORDERED: POTASSIUM Cl (KCl) 50 ML IV ONE (14:13)
--- NOTE | 2016-11-07 15:50 | HOSPPROG ---
Hospitalist Progress Note Assessment/Plan: 66 yo female admitted 10/30 with h/o COPD on chronic O2 and fibromyalgia on chronic opiates presented to ED via EMS with acute hypoxic respiratory failure requiring emergent intubation on arrival # Acute on chronic hypoxemic respiratory failure - now extubated and doing well on 3L of o2. 2/2 PNA with likely component of ARDS as well as diastolic heart failure and volume overload and copd exacerbation. # ARDS: in setting of above with diffuse bilateral infiltrates and P:F ratio c/ w ARDS. Repeat cxr from today personally interpreted and improved slightly but continued diffuse bilateral infiltrates. # acute decompensated diastolic heart failure: weight remains up but 3L net negative over the last 48 hrs, continue IV lasix, monitoring I/O's # copd with acute exacerbation: continue nebs and IV steroids for now, today increased wheeze, suspect copd is severe # shock: now off of levophed, septic shock most likely with leukocytosis/ tachycardia and pneumonia, resolved. # pneumonia: diffuse bilateral infiltrates now c/w ARDS with likely underlying pna, continued on ertapenem and doxy # elevated trop: in setting of above and likely related to demand ischemia, no wall motion abnormalities on echo and trop elevation essentially flat # pulmonary hypertension: right heart strain noted on echo in setting of above, suspect this is somewhat chronic with likely severe underlying copd, monitoring # chronic pain with continuous opiate use and dependency: on high dose opiates as an OP, will continue prn opiates but begin to transition to oral # Tobacco use: cessation counseling when extubated # LMWH # FC # Dispo: patient reports that she lives "all over", sounds as if she is estranged from her family, will have CM involved, PT/OT Care plan reviewed with Dr. Sterling and multidisciplinary care team on rounds. Subjective: patient extubated yesterday, doing well currently on o2 by HI, she is tearful talking about her family and being estranged from them, homeless essentially Objective: Vital Signs Temp Pulse Resp BP Pulse Ox 37.9 C 79 14 140/60 H 90 L 11/07/16 08:00 11/07/16 14:00 11/07/16 14:00 11/07/16 14:00 11/07/16 14:00 Laboratory Results 11/07/16 06:03 11/07/16 06:03 11/06/16 11/07/16 11/08/16 05:59 05:59 05:59 Intake Total 7491 1329 Output Total 3550 4000 Balance -4658 -4152 PT 16.4 SEC (12.0-15.0) H 10/30/16 04:20 INR 1.32 (0.83-1.16) H 10/30/16 04:20 awake alert anxious anicteric poor dentition rrr no mrg coarse bs, diffuse wheeze, normal wob soft nt nd trace ble edema warm dry well perfused oriented anxious - Time Spent With Patient Time Spent with Patient: greater than 35 minutes Time Spent with Patient: Greater than 35 minutes spent on this patients care, greater than 50% of time spent counseling, educating, and coordinating care regarding the above mentioned plan. ICD10 Worksheet Patient Problems: Problems Problem Status Onset Congestive heart failure Acute Respiratory failure Acute Hypoxemia Acute
[2016-11-07] MEDS: SENNOSIDES/DOCUSATE SODIUM TAB PO SCH ×2 (16:45→21:29)
[2016-11-07] MEDS: FAMOTIDINE 20 MG TAB PO SCH (21:28)
[2016-11-07 22:01] LABS: POTASSIUM 3.4 mEq/L (3.5-5.2)
[2016-11-07] MEDS: POTASSIUM Cl (KCl) 50 ML IV SCH ×2 (23:11→23:25)
[2016-11-08] MEDS: POTASSIUM Cl (KCl) 50 ML IV SCH (01:20)
[2016-11-08] MEDS: IPRATROPIUM/ALBUTEROL 3 ML DEYVIAL IH SCH ×4 (04:33→20:54)
[2016-11-08 05:15] LABS: % IMMATURE GRANULYOCYTES 0.5 % (0.0-1.1); ABSOLUTE IMMATURE GRANULOCYTES 0.04 10^3/uL (0.00-0.10); ADD DIFF? NO; ADD MORPH? NO; ADD SCAN? NO; ATYPICAL LYMPHOCYTE FLAG 0 (0-99); FRAGMENT RBC FLAG 0 (0-99); HEMATOCRIT 32.7 % (38.0-47.0); HEMOGLOBIN 10.7 g/dL (12.6-16.3); LEFT SHIFT FLG 0 (0-99); LIPEMIA HEMOLYSIS FLAG 80 (0-99); MEAN CELL HEMOGLOBIN 30.7 pg (27.9-34.1); MEAN CELL HEMOGLOBIN CONCENTR. 32.7 g/dL (32.4-36.7); PLATELET CLUMPS FLAG 0 (0-99); PLATELET COUNT 280 10^3/uL (150-400); RED BLOOD CELL COUNT 3.48 10^6/uL (4.18-5.33); RED CELL DISTRIBUTION WIDTH 12.8 % (11.5-15.2)
[2016-11-08 05:30] LABS: ANION GAP 6 mEq/L (8-16); CALCIUM 8.9 mg/dL (8.5-10.4); CARBON DIOXIDE 30 mEq/l (22-31); CHLORIDE 107 mEq/L (97-110); CREATININE 0.6 mg/dL (0.6-1.0); GLOMERULAR FILTRATION RATE > 60; GLUCOSE 145 mg/dL (70-100); POTASSIUM 4.4 mEq/L (3.5-5.2); SODIUM 143 mEq/L (134-144)
[2016-11-08] MEDS: FUROSEMIDE 40 MG/4 ML VIAL IVP SCH (08:11)
[2016-11-08] MEDS: SENNOSIDES/DOCUSATE SODIUM TAB PO SCH ×2 (08:11→21:07)
[2016-11-08] MEDS: ENOXAPARIN 40 MG/0.4 ML SYR SC SCH (08:11)
[2016-11-08] MEDS: methylPREDNISolone SOD SUCC 40 MG/ML VIAL IVP SCH (08:11)
[2016-11-08] MEDS: FAMOTIDINE 20 MG TAB PO SCH ×2 (08:11→21:08)
[2016-11-08] MEDS: ERTAPENEM 1 GM in NS 100 ML IV SCH (08:12)
[2016-11-08] MEDS: DOXYCYCLINE INJ 100 MG in NS 250 ML IV SCH ×2 (09:56→21:09)
[2016-11-08] MEDS ORDERED: PNEUMOC 13-VAL CONJ-DIP CRM/PF 0.5 ML SYR IM ONE (12:16)
--- NOTE | 2016-11-08 13:45 | HOSPPROG ---
Hospitalist Progress Note Assessment/Plan: DIAGNOSES: # ACUTE ON CHRONIC HYPOXEMIC RESPIRATORY FAILURE # PNEUMONIA, SUSPECT ACUTE COMMUNITY AQUIRED INFECTION # ARDS # ACUTE DECOMPENSATED DIASTOLIC HEART FAILURE # ACUTE COPD EXACERBATION # SHOCK, MOST LIKELY SEPTIC ETIOLOGY # PULMONARY HYPERTENSION # CHRONIC PAIN WITH CONTINUOUS OPIATE USE AND DEPENDENCY # SEVERE DEBILITATION AND GENERALIZED WEAKNESS # DYSPHAGIA AND ASPIRATION RISK, CURRENTLY ON THICKENED LIQUIDS RESTRICTION # Tobacco use # LMWH All cultures are final and negative. The patient continues to make gradual progress. She remains quite debilitated, somewhat disoriented, and will need significant ongoing care and rehabilitation. Patient seen on multidisciplinary rounds I reviewed the patient's care in detail with Dr. Adrien Sterling PLANS: -continue current antibiotics -continue current pulmonary respiratory measures -continue thickened liquids nutrition support -PT and OT -DVT prophylaxis I did discuss alcohol and tobacco use with her in detail, and she at this point is stating that she wants to do whatever she can to stop both of those. SUBJECTIVE: At this time she still has some dyspnea and weakness and still coughing. 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 Base Design Analyst, my review: All sinus Exam: alert mildly disoriented, talkative skin warm dry color ok resps mildly labored lungs very diminished breath sounds heart regular abd soft nondistended nontender, bowel sounds present limbs warm iv site ok Chest x-ray single view done today, my personal review and interpretation: Some continued improvement in the airspace opacities in the lower lobes but not back to normal at this time Objective: Vital Signs Temp Pulse Resp BP Pulse Ox 36.5 C 69 14 137/55 H 92 11/08/16 12:00 11/08/16 12:00 11/08/16 12:00 11/08/16 12:00 11/08/16 12:00 Laboratory Results 11/08/16 05:00 11/08/16 05:00 11/07/16 11/08/16 11/09/16 06:59 06:59 06:59 Intake Total 1329 1246 Output Total 4000 2400 1450 Balance -4541 -6244 -1450 PT 16.4 SEC (12.0-15.0) H 10/30/16 04:20 INR 1.32 (0.83-1.16) H 10/30/16 04:20 - Time Spent With Patient Time Spent with Patient: greater than 35 minutes Time Spent with Patient: Greater than 35 minutes spent on this patients care, greater than 50% of time spent counseling, educating, and coordinating care regarding the above mentioned plan. ICD10 Worksheet Patient Problems: Problems Problem Status Onset Congestive heart failure Acute Hypoxemia Acute Respiratory failure Acute
--- NOTE | 2016-11-08 15:43 | PDINTPN ---
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 Has done well since extubation. On 3 L. Likely pneumonia, diffuse. Could have a component of CHF, improved, with BNP down. Pneumonia: Likely bacterial. WBC now normal, afebrile. On Ertapenem, doxycycline : Will continue for total of 14 days. Chest x-ray slightly improved. Hx COPD: Likely relatively severe?. Apparently on oxygen at home, uses albuterol PRN. On nebulized treatments as well as steroids Chronic Opioid dependence: Off fentanyl drip. On a fentanyl patch and Oxy IR 60 three times daily. Seems to be well controlled on this regarding her pain We will not be able to take away all of her pain. Pulmonary HTN: Likely chronic, may have an acute component?. ? CHF: BNP elevated. Could be due to pulmonary HTN and acute decompensation. Plan: Continue bronchopulmonary therapies, antibiotics, and steroids. Can transfer to a medical-surgical status at this point. Continue pain medications. Passed swallow study. Will continue Lasix diuresis. Follow CXR intermittently, chemistries, CBC. 40 minutes of critical care time spent directly with the patient. Discussed with nursing, respiratory, hospitalist, and the ICU multi disciplinary team. Subjective: Feels better. Mental status returning to normal. Still has intermittent cough. Unable to bring up much mucus. Pain seems to be under adequate control. Objective: Vital Signs Temp Pulse Resp BP Pulse Ox 36.5 C 65 9 L 157/83 H 95 11/08/16 12:00 11/08/16 14:00 11/08/16 14:00 11/08/16 14:00 11/08/16 14:00 Laboratory Results 11/08/16 05:00 11/08/16 05:00 11/07/16 11/08/16 11/09/16 05:59 05:59 05:59 Intake Total 1329 1246 800 Output Total 4000 2400 1550 Balance -3041 -1154 -750 PT 16.4 SEC (12.0-15.0) H 10/30/16 04:20 INR 1.32 (0.83-1.16) H 10/30/16 04:20 CXR: Improving bilateral infiltrates. Physical Exam - Physical Exam General Appearance: alert, no apparent distress EENT: other (Nasal cannula at 3 L) Neck: normal inspection (No JVD) Respiratory: decreased breath sounds, rales (Few rales at bases bilaterally), rhonchi (Some central rhonchi with cough, some central congestion), wheezing ( Mild expiratory wheezing present), No respiratory distress, No accessory muscle use Cardiac/Chest: regular rate, rhythm Abdomen: normal bowel sounds, non-tender, soft Skin: warm/dry, pallor Extremities: pedal edema (Trace+) Neuro/Psych: no motor/sensory deficits, cognition abnormalities (Improving) ICD10 Worksheet Patient Problems: Problems Problem Status Onset Congestive heart failure Acute Respiratory failure Acute Hypoxemia Acute
[2016-11-08 18:31] LABS: POTASSIUM 4.4 mEq/L (3.5-5.2)
[2016-11-08 18:32] LABS: POTASSIUM 3.6 mEq/L (3.5-5.2)
[2016-11-08] MEDS ORDERED: POTASSIUM CL 10 MEQ TAB PO ONE (19:12)
[2016-11-09 04:06] LABS: POTASSIUM 3.8 mEq/L (3.5-5.2)
[2016-11-09] MEDS: IPRATROPIUM/ALBUTEROL 3 ML DEYVIAL IH SCH ×4 (05:35→21:56)
[2016-11-09] MEDS: ENOXAPARIN 40 MG/0.4 ML SYR SC SCH (09:28)
[2016-11-09] MEDS: FUROSEMIDE 40 MG TAB PO SCH (09:29)
[2016-11-09] MEDS: predniSONE 20 MG TAB PO SCH (09:29)
[2016-11-09] MEDS: DOXYCYCLINE INJ 100 MG in NS 250 ML IV SCH ×2 (09:34→20:46)
[2016-11-09] MEDS: FAMOTIDINE 20 MG TAB PO SCH ×2 (09:41→20:46)
[2016-11-09] MEDS: SENNOSIDES/DOCUSATE SODIUM TAB PO SCH ×2 (09:41→20:48)
[2016-11-09] MEDS: ERTAPENEM 1 GM in NS 100 ML IV SCH (11:06)
[2016-11-09] MEDS ORDERED: PNEUMOC 13-VAL CONJ-DIP CRM/PF 0.5 ML SYR IM ONE (11:22)
[2016-11-09] MEDS ORDERED: POTASSIUM CL 10 MEQ TAB PO ONE (16:21)
--- NOTE | 2016-11-09 19:07 | HOSPPROG ---
Hospitalist Progress Note Assessment/Plan: DIAGNOSES: # ACUTE ON CHRONIC HYPOXEMIC RESPIRATORY FAILURE # PNEUMONIA, SUSPECT ACUTE COMMUNITY AQUIRED INFECTION # ARDS # ACUTE DECOMPENSATED DIASTOLIC HEART FAILURE # ACUTE COPD EXACERBATION # SHOCK, MOST LIKELY SEPTIC ETIOLOGY # SUSPECT ACUTE MULTIFACTORIAL ENCEPHALOPATHY (it is unclear what her baseline mentation/education level/affect are) # PULMONARY HYPERTENSION # CHRONIC PAIN WITH CONTINUOUS OPIATE USE AND DEPENDENCY # SEVERE DEBILITATION AND GENERALIZED WEAKNESS # DYSPHAGIA AND ASPIRATION RISK, CURRENTLY ON THICKENED LIQUIDS RESTRICTION # Tobacco use # LMWH All cultures are final and negative. Remains very debilitated by resps and physical weakness. She is not tracking events well and I am not sure if this is her baseline or ongoing encephalopathy from multiple factors here. PLANS: -continue current antibiotics -continue current pulmonary respiratory measures -continue thickened liquids nutrition support -PT and OT -DVT prophylaxis -Cognitive evaluation I did discuss alcohol and tobacco use with her in detail, and she at this point is stating that she wants to do whatever she can to stop both of those. SUBJECTIVE: little change overall in her symptoms or debility; less cough today OBJECTIVE Vitals reviewed: Mild hypertension otherwise stable without fever Repeater Chief, my review: All sinus Exam: alert, talkative; she remains with some disorientation and trouble tracking events; I believe her baseline mentation may be somewhat impaired but have no specific information about her baseline at present skin warm dry color ok resps mildly labored lungs very diminished breath sounds heart regular abd soft nondistended nontender, bowel sounds present limbs warm iv site ok Objective: Vital Signs Temp Pulse Resp BP Pulse Ox 36.7 C 61 17 116/76 92 11/09/16 16:00 11/09/16 16:28 11/09/16 16:28 11/09/16 16:00 11/09/16 16:28 Laboratory Results 11/08/16 05:00 11/09/16 03:45 11/08/16 11/09/16 11/10/16 06:59 06:59 06:59 Intake Total 1246 2150 500 Output Total 2400 2550 Balance -1154 -400 500 PT 16.4 SEC (12.0-15.0) H 10/30/16 04:20 INR 1.32 (0.83-1.16) H 10/30/16 04:20 ICD10 Worksheet Patient Problems: Problems Problem Status Onset Congestive heart failure Acute Hypoxemia Acute Respiratory failure Acute
[2016-11-09] MEDS: ONDANSETRON 4 MG/2 ML VIAL IVP PRN (20:51)
[2016-11-09] MEDS: LORazepam 2 MG/ML INJ IVP PRN (22:55)
[2016-11-10] MEDS: IPRATROPIUM/ALBUTEROL 3 ML DEYVIAL IH SCH ×4 (05:57→21:00)
[2016-11-10 06:04] LABS: POTASSIUM 3.6 mEq/L (3.5-5.2)
[2016-11-10] MEDS: DOXYCYCLINE INJ 100 MG in NS 250 ML IV SCH ×2 (07:24→20:47)
[2016-11-10] MEDS: ERTAPENEM 1 GM in NS 100 ML IV SCH (08:31)
[2016-11-10] MEDS: ENOXAPARIN 40 MG/0.4 ML SYR SC SCH (08:34)
[2016-11-10] MEDS: FUROSEMIDE 40 MG TAB PO SCH (08:35)
[2016-11-10] MEDS: predniSONE 20 MG TAB PO SCH (08:37)
[2016-11-10] MEDS: FAMOTIDINE 20 MG TAB PO SCH ×2 (08:37→19:37)
[2016-11-10] MEDS: SENNOSIDES/DOCUSATE SODIUM TAB PO SCH ×2 (08:38→20:49)
[2016-11-10] MEDS ORDERED: fentaNYL 50 MCG PATCH TD SCH (10:30)
[2016-11-10] MEDS ORDERED: POTASSIUM CL 10 MEQ TAB PO ONE ×2 (11:02→20:35)
--- NOTE | 2016-11-10 17:55 | HOSPPROG ---
Hospitalist Progress Note Assessment/Plan: DIAGNOSES: # ACUTE ON CHRONIC HYPOXEMIC RESPIRATORY FAILURE # PNEUMONIA, SUSPECT ACUTE COMMUNITY AQUIRED INFECTION # ARDS # ACUTE DECOMPENSATED DIASTOLIC HEART FAILURE # ACUTE COPD EXACERBATION # SHOCK, MOST LIKELY SEPTIC ETIOLOGY # SUSPECT ACUTE MULTIFACTORIAL ENCEPHALOPATHY (it is unclear what her baseline mentation/education level/affect are) # PULMONARY HYPERTENSION # CHRONIC PAIN WITH CONTINUOUS OPIATE USE AND DEPENDENCY # SEVERE DEBILITATION AND GENERALIZED WEAKNESS # DYSPHAGIA AND ASPIRATION RISK, CURRENTLY ON THICKENED LIQUIDS RESTRICTION # Tobacco use # LMWH PLANS: -continue current antibiotics -continue current pulmonary respiratory measures -continue thickened liquids nutrition support, progress to solid food as able -PT and OT -DVT prophylaxis -Cognitive evaluation SUBJECTIVE: doing ok w less pain med today still very weak, tired, some sob and cough persist did a little better w swallowing trails today OBJECTIVE Vitals reviewed: BPs normal now otherwise stable without fever Exam: alert, talkative; a bit better oriented today skin warm dry color ok resps mildly labored lungs very diminished breath sounds heart regular abd soft nondistended nontender, bowel sounds present limbs warm iv site ok Objective: Vital Signs Temp Pulse Resp BP Pulse Ox 37.2 C 68 22 H 134/78 H 92 11/10/16 16:00 11/10/16 16:00 11/10/16 16:00 11/10/16 16:00 11/10/16 16:00 Laboratory Results 11/08/16 05:00 11/10/16 05:45 11/09/16 11/10/16 11/11/16 06:59 06:59 06:59 Intake Total 2150 650 Output Total 2550 100 500 Balance -400 550 -500 PT 16.4 SEC (12.0-15.0) H 10/30/16 04:20 INR 1.32 (0.83-1.16) H 10/30/16 04:20 ICD10 Worksheet Patient Problems: Problems Problem Status Onset Congestive heart failure Acute Hypoxemia Acute Respiratory failure Acute
[2016-11-10 19:58] LABS: POTASSIUM 3.9 mEq/L (3.5-5.2)
[2016-11-10] MEDS: ONDANSETRON 4 MG/2 ML VIAL IVP PRN (20:49)
[2016-11-11] MEDS: IPRATROPIUM/ALBUTEROL 3 ML DEYVIAL IH SCH ×4 (05:40→20:21)
[2016-11-11 06:28] LABS: POTASSIUM 3.6 mEq/L (3.5-5.2)
[2016-11-11] MEDS ORDERED: POTASSIUM CL 10 MEQ TAB PO ONE (07:54)
[2016-11-11] MEDS: ENOXAPARIN 40 MG/0.4 ML SYR SC SCH (09:52)
[2016-11-11] MEDS: SENNOSIDES/DOCUSATE SODIUM TAB PO SCH ×2 (09:52→20:23)
[2016-11-11] MEDS: predniSONE 20 MG TAB PO SCH (09:53)
[2016-11-11] MEDS: FAMOTIDINE 20 MG TAB PO SCH ×2 (09:53→20:23)
[2016-11-11] MEDS: FUROSEMIDE 40 MG TAB PO SCH (09:53)
[2016-11-11] MEDS: ERTAPENEM 1 GM in NS 100 ML IV SCH (09:54)
[2016-11-11] MEDS: DOXYCYCLINE INJ 100 MG in NS 250 ML IV SCH (11:16)
[2016-11-11] MEDS ORDERED: POLYETHYLENE GLYCOL 3350 17 GM PKT PO PRN (17:16)
[2016-11-11] MEDS ORDERED: ESTRADIOL TD SCH (17:30)
[2016-11-11] MEDS: fentaNYL 75 MCG PATCH TD SCH (17:37)
--- NOTE | 2016-11-11 17:43 | HOSPPROG ---
Hospitalist Progress Note Assessment/Plan: DIAGNOSES: # ACUTE ON CHRONIC HYPOXEMIC RESPIRATORY FAILURE # PNEUMONIA, SUSPECT ACUTE COMMUNITY AQUIRED INFECTION # ARDS # ACUTE DECOMPENSATED DIASTOLIC HEART FAILURE # ACUTE COPD EXACERBATION # SHOCK, MOST LIKELY SEPTIC ETIOLOGY # SUSPECT ACUTE MULTIFACTORIAL ENCEPHALOPATHY (it is unclear what her baseline mentation/education level/affect are) # PULMONARY HYPERTENSION # CHRONIC PAIN WITH CONTINUOUS OPIATE USE AND DEPENDENCY # SEVERE DEBILITATION AND GENERALIZED WEAKNESS # DYSPHAGIA AND ASPIRATION RISK, CURRENTLY ON THICKENED LIQUIDS RESTRICTION # Tobacco use # LMWH PLANS: -continue current antibiotics -continue current pulmonary respiratory measures -continue thickened liquids nutrition support -PT and OT -DVT prophylaxis -Cognitive evaluation I believe if she continues to progress we will be able to get home probably within 1-2 days but will follow closely. SUBJECTIVE: Still quite weak and gets dyspneic or short of breath. No other new acute symptoms Doing slightly better with swallowing but still requiring thickening of liquids , able to eat solid food okay now OBJECTIVE Vitals reviewed: BPs normal now otherwise stable without fever Exam: alert, talkative; better oriented today skin warm dry color ok resps mildly labored lungs very diminished breath sounds but no wheeze or rales heart regular abd soft nondistended nontender, bowel sounds present limbs warm no edema iv site ok Objective: Vital Signs Temp Pulse Resp BP Pulse Ox 36.9 C 67 14 120/67 91 L 11/11/16 16:00 11/11/16 16:00 11/11/16 16:00 11/11/16 16:00 11/11/16 16:00 Laboratory Results 11/08/16 05:00 11/11/16 05:55 11/10/16 11/11/16 11/12/16 06:59 06:59 06:59 Intake Total 650 700 750 Output Total 100 1125 Balance 550 -425 750 PT 16.4 SEC (12.0-15.0) H 10/30/16 04:20 INR 1.32 (0.83-1.16) H 10/30/16 04:20 ICD10 Worksheet Patient Problems: Problems Problem Status Onset Congestive heart failure Acute Hypoxemia Acute Respiratory failure Acute
[2016-11-11 19:26] LABS: POTASSIUM 4.4 mEq/L (3.5-5.2)
[2016-11-11] MEDS: CALCIUM CARBONATE 500 MG CHEWABLE TAB PO PRN (20:26)
[2016-11-12] MEDS: IPRATROPIUM/ALBUTEROL 3 ML DEYVIAL IH SCH ×4 (05:20→21:52)
[2016-11-12] MEDS ORDERED: AMLODIPINE PO SCH (09:00)
[2016-11-12] MEDS: predniSONE 20 MG TAB PO SCH (09:00)
[2016-11-12] MEDS ORDERED: ATORVASTATIN PO SCH (09:00)
[2016-11-12] MEDS: FAMOTIDINE 20 MG TAB PO SCH ×2 (09:01→21:03)
[2016-11-12] MEDS: ERTAPENEM 1 GM in NS 100 ML IV SCH (09:02)
[2016-11-12] MEDS: FUROSEMIDE 40 MG TAB PO SCH (09:02)
[2016-11-12] MEDS: ATORVASTATIN CALCIUM 40 MG TAB PO SCH (09:02)
[2016-11-12] MEDS: ENOXAPARIN 40 MG/0.4 ML SYR SC SCH (09:02)
[2016-11-12] MEDS: SENNOSIDES/DOCUSATE SODIUM TAB PO SCH ×2 (09:02→21:04)
[2016-11-12] MEDS: CALCIUM CARBONATE 500 MG CHEWABLE TAB PO PRN (10:34)
--- NOTE | 2016-11-12 17:04 | HOSPPROG ---
Hospitalist Progress Note Assessment/Plan: DIAGNOSES: # ACUTE ON CHRONIC HYPOXEMIC RESPIRATORY FAILURE # PNEUMONIA, SUSPECT ACUTE COMMUNITY AQUIRED INFECTION # ARDS # ACUTE DECOMPENSATED DIASTOLIC HEART FAILURE # ACUTE COPD EXACERBATION # SHOCK, MOST LIKELY SEPTIC ETIOLOGY # SUSPECT ACUTE MULTIFACTORIAL ENCEPHALOPATHY (it is unclear what her baseline mentation/education level/affect are) # PULMONARY HYPERTENSION # CHRONIC PAIN WITH CONTINUOUS OPIATE USE AND DEPENDENCY # SEVERE DEBILITATION AND GENERALIZED WEAKNESS # DYSPHAGIA AND ASPIRATION RISK, CURRENTLY ON THICKENED LIQUIDS RESTRICTION # Tobacco use # LMWH The patient is doing quite well from a respiratory standpoint is actually starting to swallow better and taking solid food well along with thickened liquids. However she remains fairly weak and with some disequilibrium and is having quite a bit of total with safety of walking. She is able to get up with a walker and assistance but also therapists recommending that she not be in a supervised setting due to high fall risk. She met with our rn case manager today and told them that she was absolutely unwilling to consider going to a senior living facility or other inpatient rehab setting. I spoke to her again and again she is adamant that she will not go to a senior living facility. I did review with her the high risk of fall and potential for injuries requiring surgeries and rehospitalization and she understands this. I do believe that she is recovering and with time will get her strength back and will be safely independently at home probably before terribly long but probably not in the next day or 2 at this rate. I spoke with her and the nursing staff and nursing aides in detail that I would like her to spend as little time in bed is possible almost all the time in the chair and is much time walking as possible of course with assistance and her walker. PLANS: -continue current antibiotics -continue current pulmonary respiratory measures -continue thickened liquids nutrition support -Continue PT and OT and will have her up in the chair more and up for extraoral walks with our nursing staff as much as possible -DVT prophylaxis SUBJECTIVE: Still quite weak and gets dyspneic or short of breath. No other new acute symptoms Doing slightly better with swallowing but still requiring thickening of liquids , able to eat solid food okay now OBJECTIVE Vitals reviewed: BPs normal now otherwise stable without fever Exam: alert, talkative; cognitively doing much better today skin warm dry color ok resps mildly labored lungs very diminished breath sounds but no wheeze or rales heart regular abd soft nondistended nontender, bowel sounds present limbs warm no edema iv site ok Objective: Vital Signs Temp Pulse Resp BP Pulse Ox 37.1 C 69 16 112/62 91 L 11/12/16 15:17 11/12/16 15:17 11/12/16 15:17 11/12/16 15:17 11/12/16 11:33 Laboratory Results 11/08/16 05:00 11/11/16 19:06 11/11/16 11/12/16 11/13/16 06:59 06:59 06:59 Intake Total 700 750 750 Output Total 1125 Balance -425 750 750 PT 16.4 SEC (12.0-15.0) H 10/30/16 04:20 INR 1.32 (0.83-1.16) H 10/30/16 04:20 ICD10 Worksheet Patient Problems: Problems Problem Status Onset Congestive heart failure Acute Hypoxemia Acute Respiratory failure Acute
[2016-11-13] MEDS: IPRATROPIUM/ALBUTEROL 3 ML DEYVIAL IH SCH ×4 (05:48→22:01)
[2016-11-13] MEDS: ATORVASTATIN CALCIUM 40 MG TAB PO SCH (08:25)
[2016-11-13] MEDS: ENOXAPARIN 40 MG/0.4 ML SYR SC SCH (08:27)
[2016-11-13] MEDS: FAMOTIDINE 20 MG TAB PO SCH ×2 (08:27→21:57)
[2016-11-13] MEDS: ERTAPENEM 1 GM in NS 100 ML IV SCH (08:27)
[2016-11-13] MEDS: predniSONE 20 MG TAB PO SCH (08:27)
[2016-11-13] MEDS: FUROSEMIDE 40 MG TAB PO SCH (08:27)
[2016-11-13] MEDS: SENNOSIDES/DOCUSATE SODIUM TAB PO SCH ×2 (08:28→21:58)
--- NOTE | 2016-11-13 16:49 | HOSPPROG ---
Hospitalist Progress Note Assessment/Plan: DIAGNOSES: # ACUTE ON CHRONIC HYPOXEMIC RESPIRATORY FAILURE # PNEUMONIA, SUSPECT ACUTE COMMUNITY AQUIRED INFECTION # ARDS # ACUTE DECOMPENSATED DIASTOLIC HEART FAILURE # ACUTE COPD EXACERBATION # SHOCK, MOST LIKELY SEPTIC ETIOLOGY # SUSPECT ACUTE MULTIFACTORIAL ENCEPHALOPATHY (it is unclear what her baseline mentation/education level/affect are) # PULMONARY HYPERTENSION # CHRONIC PAIN WITH CONTINUOUS OPIATE USE AND DEPENDENCY # SEVERE DEBILITATION AND GENERALIZED WEAKNESS # DYSPHAGIA AND ASPIRATION RISK, CURRENTLY ON THICKENED LIQUIDS RESTRICTION # Tobacco use # LMWH The patient is doing quite well from a respiratory standpoint is actually starting to swallow better and taking solid food well along with thickened liquids. However she remains fairly weak and with some decreased safety in walking. This is largely due to attention to what she is doing. I spoke with her therapists again today and they still recommend she not be alone at present. She met with our case finishing machine adjuster and told them that she was absolutely unwilling to consider going to a [facility] facility or other inpatient rehab setting. I spoke to her and again she is adamant that she will not go to a [facility] facility. I did review with her the high risk of fall and potential for injuries requiring surgeries and rehospitalization and she understands this. She is making fairly rapid progress and I think by 11/14 or it should be reasonably safe to send her home with home care. She is making good effort now to participate in therapies, but still having some difficulty understanding their instructions or why they are important, which she is quite focused on. PLANS: -continue current antibiotics -continue current pulmonary respiratory measures -continue thickened liquids nutrition support -Continue PT and OT and will have her up in the chair more and up for extraoral walks with our nursing staff as much as possible -DVT prophylaxis SUBJECTIVE: Still quite weak and gets dyspneic or short of breath. No other new acute symptoms Doing slightly better with swallowing but still requiring thickening of liquids , able to eat solid food okay now OBJECTIVE Vitals reviewed: BPs normal now otherwise stable without fever Exam: alert, talkative; cognitively doing much better today skin warm dry color ok resps mildly labored lungs very diminished breath sounds but no wheeze or rales heart regular abd soft nondistended nontender, bowel sounds present limbs warm no edema iv site ok Objective: Vital Signs Temp Pulse Resp BP Pulse Ox 36.7 C 75 15 117/73 94 11/13/16 15:42 11/13/16 15:42 11/13/16 15:42 11/13/16 15:42 11/13/16 15:42 Laboratory Results 11/08/16 05:00 11/11/16 19:06 11/12/16 11/13/16 11/14/16 06:59 06:59 06:59 Intake Total 750 1300 1100 Balance 750 1300 1100 PT 16.4 SEC (12.0-15.0) H 10/30/16 04:20 INR 1.32 (0.83-1.16) H 10/30/16 04:20 ICD10 Worksheet Patient Problems: Problems Problem Status Onset Congestive heart failure Acute Hypoxemia Acute Respiratory failure Acute
[2016-11-13] MEDS: LORazepam 2 MG/ML INJ IVP PRN (23:37)
[2016-11-14] MEDS: IPRATROPIUM/ALBUTEROL 3 ML DEYVIAL IH SCH ×4 (05:36→20:37)
[2016-11-14] MEDS: FAMOTIDINE 20 MG TAB PO SCH ×2 (10:44→19:58)
[2016-11-14] MEDS: SENNOSIDES/DOCUSATE SODIUM TAB PO SCH ×2 (10:44→19:57)
[2016-11-14] MEDS: ENOXAPARIN 40 MG/0.4 ML SYR SC SCH (10:44)
[2016-11-14] MEDS: ATORVASTATIN CALCIUM 40 MG TAB PO SCH (10:44)
[2016-11-14] MEDS: predniSONE 20 MG TAB PO SCH (10:44)
[2016-11-14] MEDS: FUROSEMIDE 40 MG TAB PO SCH (10:44)
[2016-11-14] MEDS: ERTAPENEM 1 GM in NS 100 ML IV SCH (10:45)
--- NOTE | 2016-11-14 14:31 | HOSPPROG ---
Hospitalist Progress Note Assessment/Plan: Patient is a 66 year old female with COPD, chronic respiratory failure on O2, fibromyalgia, hypertension who was brought into the ED with acute hypoxic respiratory failure. ED evaluation revealed diffuse pulmonary edema, patient was emergently intubated and admitted to the ICU. Today she is on the [facility] floor and improving. Today is my first encounter with the patient / chart reviewed. *sepsis on admission had elevated wbc count, rr of 25 likely due to a bacterial pneumonia resolved *acute on chronic hypoxemic respiratory failure had been on ventilator on admission is on 2.5 liters today *PNA/ CAP on Ertapenem since 10/30 will dc /not febrile/feeling well *ARDS resolved *indeterminate troponin secondary to right heart strain *acute decompensated diastolic heart failure resolving on lasix *Acute COPD exacerbation on Prednisone 60 mg/ this will need to be weaned down *Pulmonary HTN *Shock resolved had been on pressors *Encephalopathy resolved suspect she is at her baseline *chronic pain on continuous opioids with dependency discussed with her my concern for being on Fentanyl this can cause encephalopathy and also increase risk of drowsiness, falling/ she understands *Nicotine dependence told me she has quit smoking told her never to smoke around the oxygen tank *severe deconditioning Wendie was able to get oob and ambulate for me w use of walker *Plan: Wendie is absolutely declining to go to a SNF. She was able to get up and walk for me in the room with the walker. Has a neighbor who can help her. Has friends who will bring her meals. She has a good understanding that she has been quite ill, knows she is weak, has a plan to get neighbors to help her. She is fine with home care checking on her and wants physical therapy. She is oriented to person, place, time and situation/ she is decisional/ not likely to make good decisions but has a good understanding of her care and what needs follow up. Subjective: Wendie is feeling well/ wants to go home. Says she has chronic pain everywhere. Objective: Vital Signs Temp Pulse Resp BP Pulse Ox 36.9 C 78 15 94/52 L 92 11/14/16 12:00 11/14/16 12:42 11/14/16 12:00 11/14/16 12:42 11/14/16 12:00 Laboratory Results 11/08/16 05:00 11/11/16 19:06 11/13/16 11/14/16 11/15/16 05:59 05:59 05:59 Intake Total 1300 1600 Balance 1300 1600 PT 16.4 SEC (12.0-15.0) H 10/30/16 04:20 INR 1.32 (0.83-1.16) H 10/30/16 04:20 - Physical Exam Constitutional: not in pain, chronically ill appearing Eyes: PERRL Ears, Nose, Mouth, Throat: hearing normal Cardiovascular: regular rate and rhythym Respiratory: no respiratory distress, reduced air movement Gastrointestinal: normoactive bowel sounds Skin: warm Musculoskeletal: generalized weakness Neurologic: AAOx3 Psychiatric: interacting appropriately, not anxious, not encephalopathic, thought process linear ICD10 Worksheet Patient Problems: Problems Problem Status Onset Congestive heart failure Acute Hypoxemia Acute Respiratory failure Acute
[2016-11-14] MEDS: fentaNYL 75 MCG PATCH TD SCH (17:48)
[2016-11-14] MEDS ORDERED: LORazepam 0.5 MG TAB PO ONE (19:44)
[2016-11-15] MEDS: IPRATROPIUM/ALBUTEROL 3 ML DEYVIAL IH SCH ×2 (00:27→11:04)
[2016-11-15] MEDS ORDERED: ZOLPIDEM TARTRATE 5 MG TAB PO PRN (01:30)
[2016-11-15 07:46] VITALS: BP 142/76; RESP 18; TEMP 98.5
[2016-11-15] MEDS: FUROSEMIDE 40 MG TAB PO SCH (09:23)
[2016-11-15] MEDS: ATORVASTATIN CALCIUM 40 MG TAB PO SCH (09:24)
[2016-11-15] MEDS: predniSONE 20 MG TAB PO SCH (09:24)
[2016-11-15] MEDS: FAMOTIDINE 20 MG TAB PO SCH (09:25)
[2016-11-15] MEDS: ENOXAPARIN 40 MG/0.4 ML SYR SC SCH (09:26)
[2016-11-15] MEDS: SENNOSIDES/DOCUSATE SODIUM TAB PO SCH (10:06)
[2016-11-15] MEDS ORDERED: MAGNESIUM HYDROXIDE 30 ML UDCUP PO ONE (10:33)
--- NOTE | 2016-11-15 10:49 | PDIAF ---
- Diagnosis Diagnosis: PNA Code Status: Full Code - Medication Management Discharge Medications: Medications to Continue on Transfer Estradiol [Climara] 1 each TD Q7D 10/31/16 [Last Taken Unknown] Herbals/Supplements -Info Only 1 ea PO DAILY 10/31/16 [Last Taken Unknown] Levalbuterol Inhaler [Xopenex Hfa Inhaler (*)] 1 puffs IH Q4HRS PRN 10/31/16 [ Last Taken Unknown] Omeprazole [Prilosec 20 mg] 20 mg PO DAILY 10/31/16 [Last Taken Unknown] Polyethylene Glycol 3350 [Miralax 17 gm (*)] 17 gm PO TID PRN 10/31/16 [Last Taken Unknown] amLODIPine/ATORVASTATIN [Amlodipine-Atorvast 10-40 mg] 1 each PO DAILY 10/31/16 [Last Taken Unknown] fentaNYL [Duragesic 75 MCG Patch (*)] 75 mcg TD Q72H 10/31/16 [Last Taken Unknown] Calcium Carbonate [Tums 500MG (*)] 500 mg PO TID PRN #0 tab.chew 11/15/16 [Last Taken Unknown] Furosemide [Lasix 20 MG (*)] 20 mg PO DAILY #30 tab 11/15/16 [Last Taken Unknown ] Ipratropium/Albuterol [Duoneb (*)] 3 ml IH QID #20 deyvial 11/15/16 [Last Taken Unknown] Sennosides/Docusate Sodium [Senokot-S] 1 tab PO BID tab 11/15/16 [Last Taken Unknown] clonIDINE [Catapres (*)] 0.1 mg TUBE BID #60 tab 11/15/16 [Last Taken Unknown] oxyCODONE IR [Oxycodone Ir (*)] 60 mg PO TID PRN #30 tab 11/15/16 [Last Taken Unknown] Discharge Medications: Refer to the Discharge Home Medication list for PRN reason. PICC Care - Routine: N/A - Orders Services needed: Home Care, Physical Therapy, Occupational Therapy Home Care Face to Face: I certify that this patient was under my care and that I had the required [id number] encounter meeting the encounter requirements on the discharge day. My findings support the fact that the patient is homebound as defined in CMS Chapter 7 Medicare Benefits Manual 30.1.1, The condition of the patient is such that there exists a normal inability to leave home and consequently, leaving home would require a considerable and taxing effort. - Follow Up Care Current Providers and Referrals: Maynor Lópze [Primary Care Provider] - As per Instructions Andrés Siddiqi MD [Medical Doctor] -
[2016-11-15] MEDS: ONDANSETRON 4 MG/2 ML VIAL IVP PRN (11:11)
[2016-11-15 11:24] LABS: POTASSIUM 3.5 mEq/L (3.5-5.2)
[2016-11-15 12:42] VITALS: PULSE 76; O2SAT 94
--- NOTE | 2016-11-15 14:15 | GDS ---
[f rep st] DISCHARGE SUMMARY DISCHARGE DIAGNOSES: 1. Sepsis. 2. Acute on chronic hypoxemic respiratory failure. 3. Pneumonia. 4. Acute respiratory distress syndrome. 5. Indeterminate troponin. 6. Acute decompensated diastolic heart failure. 7. Acute chronic obstructive pulmonary disease exacerbation. 8. Pulmonary hypertension. 9. Shock. 10. Encephalopathy. 11. Chronic pain on continuous opioids. 12. Nicotine dependency. 13. Severe deconditioning. PHYSICAL EXAM: GENERAL: The patient is alert. VITAL SIGNS: Afebrile at 36.9, pulse is 62, respir atory rate is 18, blood pressure is 142/76. She is saturating 94% on 2 L. I have seen and evaluated the patient on the day of discharge. HOSPITAL COURSE: The patient is a 66-year-old female who presented to the emergency room with acute hypoxemic respiratory failure. She was evaluated and diagnosed with: 1. Sepsis on admission. During this hospitalization the patient was treated with antibiotic therap y. 2. Acute on chronic hypoxemic respiratory failure. The patient required intubation during this hos pitalization. She is now on 2 L of oxygen and will require supplemental oxygen at the time of dispo sition, which has been prescribed for her. 3. Pneumonia. This has been thoroughly treated with antibiotic therapy, and no further antibiotics are required at this time. 4. ARDS. This has resolved. 5. Indeterminate troponin. This is likely secondary to the patient's acute illness and respiratory status. No signs for further cardiac evaluation have been identified. 6. Acute decompensated diastolic heart failure. This is resolving. The patient will be discharged on a prescription for Lasix. This may be tapered off in the future per her primary care physician. 7. Acute COPD exacerbation. The patient has responded well to steroid treatment. She will continu e a prednisone taper at the time of disposition. A prescription has been provided for her. Further prednisone therapy will be initiated by her primary care physician as needed. 8. Pulmonary hypertension. 9. Shock. This has resolved. The patient required pressors during this hospital course but have b een discontinued. 10. Encephalopathy. The patient's mentation is at baseline. 11. Chronic pain on continuous opioids. She will continue her opioid pain medication at the time o f disposition and follow with her primary care physician. 12. Nicotine dependence. Again, the patient has received tobacco cessation education and states th at she wishes to discontinue any further nicotine use. 13. Severe deconditioning. It has been recommended that the patient be discharged to skilled nursi ng rehabilitation for further strengthening and management. She is absolutely refusing this at the time. She has been notified and educated about the risks of leaving the hospital to return home. S he does understand this. She understands that we are recommending custodial rehabilitation an d continues to refuse this. She is open to home health care, which will be ordered at the time of h er disposition. She tells me she has significant help at home. I have reviewed this with the manager case management as well as the patient's nurse. DISCHARGE MEDICATIONS: Please refer to EMR form. I have provided the patient a prescription for Ca tapres as well as Lasix, oxycodone IR, and prednisone taper. She will follow with her primary care physician, Dr. Refugio Siddiqi, in the next 2-3 days. Again, home health care has been provided for her at the time of disposition. I spent greater than 35 minutes in the care, coordination, and management of the patient's discharge . /[id number]/MODL
== END 2016-11-15 15:00 | disposition home health service (06) | DRG 870 ==
LOC: EDUNIT# → F2N 10-30 00:39 → F3N 11-08 17:30
PROVIDERS: ADMIT Internal Medicine; ATTEND Internal Medicine
PROC: 0BH17EZ Insertion of Endotracheal Airway into Trachea, Via Natural or Artificial Opening (ICD-10-PCS; principal; 2016-10-30)
PROC: 5A1955Z Respiratory Ventilation, Greater than 96 Consecutive Hours (ICD-10-PCS; principal; 2016-10-30)
PROC: 02HV33Z Insertion of Infusion Device into Superior Vena Cava, Percutaneous Approach (ICD-10-PCS; 2016-10-30)
DX: A41.9 Sepsis, unspecified organism (principal); R65.21 Severe sepsis with septic shock; J80 Acute respiratory distress syndrome; J18.9 Pneumonia, unspecified organism; J44.1 Chronic obstructive pulmonary disease with (acute) exacerbation; J96.21 Acute and chronic respiratory failure with hypoxia; I50.31 Acute diastolic (congestive) heart failure; R13.10 Dysphagia, unspecified; E87.6 Hypokalemia; G89.29 Other chronic pain; F17.210 Nicotine dependence, cigarettes, uncomplicated; I10 Essential (primary) hypertension; Z99.81 Dependence on supplemental oxygen
CPT/HCPCS: 87449-90; 92507-GN; 92523-GN; 92526-GN; 92610-GN; 96374; 97112-GP; 97116-GP; 97162-GP; 97166-GO; 97530-GO; 97530-GP; 97535-GO; C1751; G0009; G8978-GP-CM; G8979-GP-CJ; G8987-GO-CK; G8988-GO-CI; G8996-GN-CK; G8997-GN-CI; G8998-GN-CI; G9166-GN-CI; G9167-GN-CI; J0330; J1335; J1650; J2060; J2405; J2704; J2997; J3010; J3370; J3475

== ENCOUNTER 2017-01-04 18:04 | Inpatient (IN) | payer OTHER, MEDICAID ==
--- NOTE | 2017-01-04 19:03 | EDPHY ---
H & P Stated Complaint: passed out ~ 1 wk ago,hit head.Sent here for eval by PCP Source: Patient - Personal History Current Tetanus Diphtheria and Acellular Pertussis (TDAP): Yes - Medical/Surgical History Hx Asthma: No Hx Chronic Respiratory Disease: Yes Hx Diabetes: No Hx Cardiac Disease: Yes Hx Renal Disease: No Hx Cirrhosis: No Hx Alcoholism: No Hx HIV/AIDS: No Hx Splenectomy or Spleen Trauma: No Other PMH: FIBROMYALGIA, ARTHRITIS, DJD, HTN, COPD on home O2 - Social History Smoking Status: Current every day smoker HPI/ROS: HPI CHIEF COMPLAINT: Possible head injury, neck pain, lumbar back pain HISTORY OF PRESENT ILLNESS: This patient is 66-year-old female, significant past medical history osteoarthritis, fibromyalgia, degenerative joint disease, hospitalization for heart failure sepsis pneumonia ARDS and COPD, presents emergency room on oxygen at her baseline, after she fell off her toilet. She states this happened a week and a half ago. She states her head struck the toilet paper gil she immediately had pain. She presents emergency room stating that she is having ongoing headache where she hit her head on the right side, as well as neck pain midline cervical, as well as low back pain lumbar midline. She denies any numbness or tingling or focal weakness. Denies chest pain or shortness of breath. She does tell me that she has chronic pain and takes oxycodone 30 mg, fentanyl patch 75 mcg. Patient tells me this is exacerbating her chronic pain. Patient denies being on blood thinners. Does take daily aspirin. Past Medical History: Chronic pain, fibromyalgia, osteoarthritis, COPD, ARDS, sepsis, pneumonia, heart failure Past Surgical History: No recent surgical history Social History: Oxygen dependent, denies illicit drug Family History: Noncontributory ROS REVIEW OF SYSTEMS: A comprehensive 10 point review of systems is otherwise negative aside from elements mentioned in the history of present illness. Exam Constitutional appears well nontoxic, triage nursing summary reviewed, vital signs reviewed, awake/alert. Eyes normal conjunctivae and sclera, EOMI, PERRLA. HENT head/neck is atraumatic exam no midline cervical spine pain, head exam atraumatic, moist mucus membranes, no epistaxis, neck supple/ no meningismus, no raccoon eyes. Respiratory clear to auscultation bilaterally, normal breath sounds, no respiratory distress, no wheezing. Cardiovascular rate normal, regular rhythm, no murmur, no edema, distal pulses normal. Gastrointestinal soft, non-tender, no rebound, no guarding, normal bowel sounds, no distension, no pulsatile mass. Genitourinary no CVA tenderness. Musculoskeletal back exam lumbar spine; no bruising, no midline vertebral tenderness, full range of motion, no calf swelling, no tenderness of extremities , no meningismus, good pulses, neurovascularly intact. Skin pink, warm, & dry, no rash, skin atraumatic. Neurologic awake, alert and oriented x 3, AAOx3, moves all 4 extremities equally, motor intact, sensory intact, CN II-XII intact, normal cerebellar, normal vision, normal speech. Psychiatric normal mood/affect. Heme/Lymph/Immune no lymphadenopathy. Differential Diagnosis: Includes but is not limited to in a particular order, multiple contusions, closed head injury, concussion, intracranial bleed from trauma, skull fracture, cervical spine injury, lumbar degenerative joint disease Medical Decision Making: Plan for this patient CT scan head and neck to rule out significant trauma, x-ray lumbar spine. Re-evaluation: ED x-ray lumbar spine: No evidence of compression fracture significant malalignment. Image interpreted by myself CT scan of the head without IV contrast . Results of the studies show a subdural right-sided 9 mm in thickness. 4 cm in diameter. The study was read by Dr. Maravilla. [I viewed the images myself on the PACS system. CT scan of the cervical spine without IV contrast The results of the study are negative for acute traumatic injury. DJD, Disc disease. The study was read by Dr. maravilla. I viewed the images myself on the PACS system. 2044: Due to this patient's subdural I will contact Neurosurgery. Patient most likely need to be admitted to the ICU. 2048: Spoke with Dr. Kenney with Neurosurgery. He will review the films. 2106: Patient signed over to Dr. Santos at 9pm shift change. Dr. Burton reviewing fills will get back to us about disposition. (Laureano Mcgarry) Constitutional: Initial Vital Signs Temperature (C) 36.9 C 01/04/17 18:10 Heart Rate 83 01/04/17 18:10 Respiratory Rate 20 01/04/17 18:10 Blood Pressure 118/74 01/04/17 18:10 O2 Sat (%) 90 L 01/04/17 18:10 O2 Delivery Mode Nasal Cannula O2 (L/minute) 3 Allergies/Adverse Reactions: No Known Allergies Allergy (Verified 01/04/17 18:17) Home Medications: Medication Instructions Recorded Levalbuterol Inhaler [Xopenex Hfa 1 puffs IH Q4HRS PRN 10/31/16 Inhaler (*)] Omeprazole [Prilosec 20 mg] 20 mg PO DAILY 10/31/16 amLODIPine/ATORVASTATIN 1 each PO DAILY 10/31/16 [Amlodipine-Atorvast 10-40 mg] fentaNYL [Duragesic 75 MCG Patch 75 mcg TD Q72H 10/31/16 (*)] Furosemide [Lasix 20 MG (*)] 20 mg PO DAILY #30 tab 11/15/16 Ipratropium/Albuterol [Duoneb (*)] 3 ml IH QID #20 deyvial 11/15/16 Estradiol [Climara] 0.5 each TD Q3D 01/04/17 clonIDINE [Catapres (*)] 0.1 mg TP BID 01/04/17 oxyCODONE IR [Oxycodone Ir (*)] 30 mg PO .6XD PRN 01/04/17 Acetaminophen [Tylenol 325mg (*)] 650 mg PO Q4HRS PRN #0 tab 01/06/17 Medical Decision Making ED Course/Re-evaluation: 9:20 p.m. I discussed the case with Dr. Cain who feels that her injuries are non operative. He did not recommend admission. 9:30 p.m. I spoke with the patient who is very well-appearing who complains of a headache. No vomiting or nausea. I spoke with Dr. Laureano Craven who recommends the patient not be admitted to the trauma service because her injuries over a week old. He will consult. He recommends Neurosurgery medicine admission. 9:36 p.m. I spoke with Dr. Cain who will admit. (Wiliam Santos) Differential Diagnosis: Partial list of the Differential diagnosis considered include but were not limited to; head injury, fracture, and although unlikely based on the history and physical exam, I also considered syncope, hypoxia, seizure. (Wiliam Santos) - Data Points Laboratory Results: Laboratory Results 01/04/17 20:59 01/04/17 20:59 Medications Given: Discontinued Medications Acetaminophen (Tylenol) 650 mg PO Q4HRS PRN PRN Reason: Pain, Mild Stop: 07/03/17 22:01 Last Admin: 01/06/17 04:22 Dose: 650 mg Albuterol (Proventil Neb) 3 ml IH Q4 PRN PRN Reason: Short of Breath/Dyspnea Stop: 07/04/17 00:38 Last Admin: 01/05/17 00:52 Dose: 3 ml Albuterol/Ipratropium (Duoneb) 3 ml IH QID [facility] Stop: 07/04/17 05:59 Last Admin: 01/06/17 12:10 Dose: Not Given Amlodipine Besylate (Norvasc) 10 mg PO DAILY [facility] Stop: 07/04/17 08:59 Last Admin: 01/06/17 08:48 Dose: 10 mg Atorvastatin Calcium (Lipitor) 40 mg PO DAILY [facility] Stop: 07/04/17 08:59 Last Admin: 01/06/17 08:47 Dose: 40 mg Clonidine (Catapres) 0.1 mg PO BID [facility] Stop: 07/04/17 08:59 Last Admin: 01/06/17 08:48 Dose: 0.1 mg Fentanyl (Duragesic) 75 mcg TD Q72H [facility] Stop: 01/14/17 23:14 Last Admin: 01/04/17 23:46 Dose: Not Given Furosemide (Lasix) 20 mg PO DAILY [facility] Stop: 07/04/17 08:59 Last Admin: 01/06/17 08:47 Dose: 20 mg Lorazepam (Ativan Injection) 1 mg IVP Q12 PRN PRN Reason: AGITATION Stop: 07/05/17 00:49 Last Admin: 01/06/17 01:02 Dose: 1 mg Morphine Sulfate (Morphine) 1 - 2 mg IVP Q1HR PRN PRN Reason: Pain, Breakthrough Stop: 01/15/17 01:54 Last Admin: 01/05/17 02:06 Dose: 2 mg Oxycodone HCl (Oxycodone Ir) 30 mg PO Q4 PRN PRN Reason: Pain, Severe Able to Take PO Stop: 01/14/17 23:26 Last Admin: 01/06/17 08:48 Dose: 30 mg Oxycodone/Acetaminophen (Percocet 5/325) 1 - 2 tab PO Q4HRS PRN PRN Reason: Pain, Severe Able to Take PO Stop: 01/14/17 22:01 Last Admin: 01/06/17 11:27 Dose: 1 tab Oxymetazoline HCl (Afrin Nasal [place]) 2 - 3 sprays EACHNARE BID PRN PRN Reason: Congestion Stop: 07/04/17 12:19 Last Admin: 01/06/17 05:12 Dose: 2 sprays Pantoprazole Sodium (Protonix) 40 mg PO DAILY YANNI Stop: 07/04/17 08:59 Last Admin: 01/06/17 08:48 Dose: 40 mg Senna/Docusate Sodium (Senokot-S) 1 - 2 tab PO BID YANNI PRN Reason: Protocol Stop: 07/04/17 08:59 Last Admin: 01/06/17 08:49 Dose: 2 tab Departure - Departure Disposition: [facility] Acute Clinical Impression: SDH (subdural hematoma) Closed head injury Qualifiers: Encounter type: initial encounter Qualified Code(s): S09.90XA - Unspecified injury of head, initial encounter Chronic pain Qualifiers: Chronic pain type: chronic pain syndrome Qualified Code(s): G89.4 - Chronic pain syndrome Concussion Qualifiers: Encounter type: initial encounter Loss of consciousness presence/duration: without LOC Qualified Code(s): S06.0X0A - Concussion without loss of consciousness, initial encounter Condition: Good
[2017-01-04 21:08] LABS: % IMMATURE GRANULYOCYTES 0.2 % (0.0-1.1); ABSOLUTE IMMATURE GRANULOCYTES 0.02 10^3/uL (0.00-0.10); ADD DIFF? NO; ADD MORPH? NO; ADD SCAN? NO; ATYPICAL LYMPHOCYTE FLAG 10 (0-99); FRAGMENT RBC FLAG 0 (0-99); HEMATOCRIT 33.9 % (38.0-47.0); HEMOGLOBIN 11.1 g/dL (12.6-16.3); LEFT SHIFT FLG 0 (0-99); LIPEMIA HEMOLYSIS FLAG 80 (0-99); MEAN CELL HEMOGLOBIN 30.4 pg (27.9-34.1); MEAN CELL HEMOGLOBIN CONCENTR. 32.7 g/dL (32.4-36.7); MEAN CELL VOLUME 92.9 fL (81.5-99.8); MEAN PLATELET VOLUME 8.8 fL (8.7-11.7); PLATELET CLUMPS FLAG 0 (0-99); PLATELET COUNT 293 10^3/uL (150-400); RED BLOOD CELL COUNT 3.65 10^6/uL (4.18-5.33); RED CELL DISTRIBUTION WIDTH 12.9 % (11.5-15.2)
[2017-01-04 21:16] LABS: ANION GAP 9 mEq/L (8-16); APTT 28.5 SEC (23.0-38.0); CALCIUM 8.8 mg/dL (8.5-10.4); CARBON DIOXIDE 24 mEq/l (22-31); CHLORIDE 97 mEq/L (97-110); CREATININE 0.7 mg/dL (0.6-1.0); GLOMERULAR FILTRATION RATE > 60; GLUCOSE 123 mg/dL (70-100); SODIUM 130 mEq/L (134-144)
[2017-01-04] MEDS ORDERED: OXYMETAZOLINE 30 ML NASAL SPRAY ONE (21:31)
[2017-01-04 21:39] LABS: INR 1.16 (0.83-1.16); PROTIME(PATIENT) 14.8 SEC (12.0-15.0)
[2017-01-04] MEDS ORDERED: POLYETHYLENE GLYCOL 3350 17 GM PKT PO PRN (22:02)
[2017-01-04] MEDS ORDERED: MAGNESIUM HYDROXIDE 30 ML UDCUP PO PRN (22:02)
[2017-01-04] MEDS ORDERED: LACTULOSE 20 GM/30 ML UDCUP PO PRN (22:02)
[2017-01-04] MEDS ORDERED: BISACODYL 10 MG SUPP PR PRN (22:02)
[2017-01-04] MEDS ORDERED: ONDANSETRON 4 MG/2 ML VIAL IVP PRN (22:02)
[2017-01-04] MEDS ORDERED: NS W/ 20 KCl/L 1,000 ML IV SCH (22:15)
[2017-01-04] MEDS ORDERED: LEVALBUTEROL INHALER 200 PUFFS/15 GM MDI IH PRN (23:13)
[2017-01-04] MEDS ORDERED: fentaNYL 75 MCG PATCH TD SCH (23:15)
--- NOTE | 2017-01-04 23:26 | PDGENHP ---
History and Physical - Chief Complaint headache - History of Present Illness 66 y/o female fell off her toilet 10 days ago and broke the toilet roll gil with her head. She remembers losing consciousness very briefly and awoke with a headache and pain in her back and neck. She presented to the ED today for evaluation and was found to have a right SDH on CT. No trauma activation occured. Trauma service consultation was requested by Dr. Burton and Dr. Mcdaniel. When I met with Wendie in the ICU she was sitting up in bed eating a sandwich and watching TV. History Information - Allergies/Home Medication List Allergies/Adverse Reactions: No Known Allergies Allergy (Verified 01/04/17 18:17) Home Medications: Levalbuterol Inhaler [Xopenex Hfa Inhaler (*)] 1 puffs IH Q4HRS PRN 10/31/16 [ Last Taken Unknown] Omeprazole [Prilosec 20 mg] 20 mg PO DAILY 10/31/16 [Last Taken 01/04/17] amLODIPine/ATORVASTATIN [Amlodipine-Atorvast 10-40 mg] 1 each PO DAILY 10/31/16 [Last Taken 01/04/17] fentaNYL [Duragesic 75 MCG Patch (*)] 75 mcg TD Q72H 10/31/16 [Last Taken ] Estradiol [Climara] 0.5 each TD Q3D 01/04/17 [Last Taken 01/04/17] clonIDINE [Catapres (*)] 0.1 mg TP BID 01/04/17 [Last Taken 01/04/17] oxyCODONE IR [Oxycodone Ir (*)] 30 mg PO .6XD PRN 01/04/17 [Last Taken 01/04/17] I have personally reviewed and updated: family history, medical history, social history, surgical history - Past Medical History asthma, fibromyalgia Additional medical history: unable to fully assess, but according to chart review: fibromyalgia. COPD. chronic respiratory failure on continuous O2 via nasal cannula. h/o R MCA aneurysm s/p clipping (2007) - Surgical History Additional surgical history: R MCA aneurysm clipping - Family History Additional family history: unknown - Social History Smoking Status: Current every day smoker Tobacco Use: Cigarettes Alcohol Use: Sober Review of Systems Constitutional: Reports: malaise, recent injury, recent illness, weakness EENMT: Reports: blurred vision Gastrointestinal: Reports: vomitting, diarrhea Muscolosketal: Reports: back pain, calf pain, muscle pain, muscle stiffness, neck pain Skin: Reports: other (increased edema) Neurological: Reports: headache, numbness, pre-existing deficit, weakness Physical Exam Temp Pulse Resp BP Pulse Ox 36.9 C 64 16 124/76 H 94 01/04/17 22:12 01/04/17 22:12 01/04/17 22:12 01/04/17 22:12 01/04/17 22:12 Constitutional: no apparent distress Eyes: PERRL (pupils 2mm reactive), anicteric sclera, EOMI Cardiovascular: regular rate and rhythym, no murmur, rub, or gallop, pulses symmetric bilaterally Peripheral Pulses: 2+: dorsalis-pedis (R), dorsalis-pedis (L), 4+: carotid (R), carotid (L), femoral (R), femoral (L) Respiratory: no respiratory distress, no rales or rhonchi, clear to auscultation Gastrointestinal: normoactive bowel sounds, soft, non-tender abdomen Genitourinary: no bladder fullness Skin: warm, normal color Musculoskeletal: muscular tenderness Neurologic: AAOx3, sensation intact bilaterally, CN II-XII Intact Psychiatric: thought process linear, anxious Lymph, Heme, Immunologic: no cervical LAD Lab Data & Imaging Review 01/04/17 20:59 01/04/17 20:59 WBC 8.90 10^3/uL (3.80-9.50) 01/04/17 20:59 RBC 3.65 10^6/uL (4.18-5.33) L 01/04/17 20:59 Hgb 11.1 g/dL (12.6-16.3) L 01/04/17 20:59 Hct 33.9 % (38.0-47.0) L 01/04/17 20:59 MCV 92.9 fL (81.5-99.8) 01/04/17 20:59 MCH 30.4 pg (27.9-34.1) 01/04/17 20:59 MCHC 32.7 g/dL (32.4-36.7) 01/04/17 20:59 RDW 12.9 % (11.5-15.2) 01/04/17 20:59 Plt Count 293 10^3/uL (150-400) 01/04/17 20:59 MPV 8.8 fL (8.7-11.7) 01/04/17 20:59 Neut % (Auto) 57.6 % (39.3-74.2) 01/04/17 20:59 Lymph % (Auto) 29.8 % (15.0-45.0) 01/04/17 20:59 [place] % (Auto) 6.4 % (4.5-13.0) 01/04/17 20:59 Eos % (Auto) 5.6 % (0.6-7.6) 01/04/17 20:59 Baso % (Auto) 0.4 % (0.3-1.7) 01/04/17 20:59 Nucleat RBC Rel Count 0.0 % (0.0-0.2) 01/04/17 20:59 Absolute Neuts (auto) 5.12 10^3/uL (1.70-6.50) 01/04/17 20:59 Absolute Lymphs (auto) 2.65 10^3/uL (1.00-3.00) 01/04/17 20:59 Absolute Monos (auto) 0.57 10^3/uL (0.30-0.80) 01/04/17 20:59 Absolute Eos (auto) 0.50 10^3/uL (0.03-0.40) H 01/04/17 20:59 Absolute Basos (auto) 0.04 10^3/uL (0.02-0.10) 01/04/17 20:59 Absolute Nucleated RBC 0.00 10^3/uL (0-0.01) 01/04/17 20:59 Immature Gran % 0.2 % (0.0-1.1) 01/04/17 20:59 Immature Gran # 0.02 10^3/uL (0.00-0.10) 01/04/17 20:59 PT 14.8 SEC (12.0-15.0) 01/04/17 20:59 INR 1.16 (0.83-1.16) 01/04/17 20:59 APTT 28.5 SEC (23.0-38.0) 01/04/17 20:59 Sodium 130 mEq/L (134-144) L 01/04/17 20:59 Potassium 4.0 mEq/L (3.5-5.2) 01/04/17 20:59 Chloride 97 mEq/L (97-110) 01/04/17 20:59 Carbon Dioxide 24 mEq/l (22-31) 01/04/17 20:59 Anion Gap 9 mEq/L (8-16) 01/04/17 20:59 BUN 3 mg/dL (7-23) L 01/04/17 20:59 Creatinine 0.7 mg/dL (0.6-1.0) 01/04/17 20:59 Estimated GFR > 60 01/04/17 20:59 Glucose 123 mg/dL (70-100) H 01/04/17 20:59 Calcium 8.8 mg/dL (8.5-10.4) 01/04/17 20:59 Visualized and Interpreted Chest x-ray results: Yes Interpretation: CT head right subdural hematoma 9mm width up to 40mm length right parietal/no obvoius skull fx. CT cervical and lumbar spine negative for fractures-advanced DDD Assessment & Plan Assessment: SDH (subdural hematoma) (Acute) right parietal-s/p fall 10 days prior remote hx R MCA aneurysm clipping fibromyalgia/chronic pain syndrome tobacco use COPD/chronic bronchitis-O2 dependent Plan: Patient admitted to ICU repeat CT in AM neuro-observation medications reconciled in EMR
[2017-01-05] MEDS: oxyCODONE IR 15 MG TAB PO PRN ×5 (00:08→18:52)
[2017-01-05] MEDS ORDERED: ALBUTEROL 3 ML DEYVIAL ONE (00:37)
[2017-01-05] MEDS ORDERED: ALBUTEROL 3 ML DEYVIAL IH PRN (00:39)
[2017-01-05] MEDS: IPRATROPIUM/ALBUTEROL 3 ML DEYVIAL IH SCH ×4 (05:31→22:54)
[2017-01-05] MEDS ORDERED: AMLODIPINE PO SCH (09:00)
[2017-01-05] MEDS ORDERED: ATORVASTATIN PO SCH (09:00)
[2017-01-05] MEDS ORDERED: NON-FORMULARY NEW DRUG (Omeprazole [Prilosec 20 Mg] 20 MG) PO SCH (09:00)
[2017-01-05] MEDS: SENNOSIDES/DOCUSATE SODIUM TAB PO SCH ×2 (09:37→21:52)
[2017-01-05] MEDS: PANTOPRAZOLE SODIUM 40 MG TAB PO SCH (09:38)
[2017-01-05] MEDS: ATORVASTATIN CALCIUM 40 MG TAB PO SCH (09:39)
[2017-01-05] MEDS: FUROSEMIDE 20 MG TAB PO SCH (09:46)
--- NOTE | 2017-01-05 13:09 | GHP ---
[f rep st] HISTORY AND PHYSICAL DATE OF ADMISSION: 01/04/2017 CONSULTING SERVICE: Dr. Mcgarry, Emergency Medicine CHIEF COMPLAINT/REASON FOR ADMISSION: Imbalance, repeated falls, and small right frontoparietal sub dural hematoma. HISTORY OF PRESENT ILLNESS: The patient is a 66-year-old female who presented to the emergency room last night, stating she had fallen off the toilet 10 days prior, hit her head and broke the steel t oilet roll gil with her head. She thinks she lost consciousness very briefly and awoke with a he adache. Apparently she says she has been more unsteady on her feet since that time, and reports new t she talked to her PCP's office, Dr. López, and they recommended evaluation in the emergency room. She also claims to have had an episode of nausea and vomiting a couple of days ago that also made her more weak and fatigued. She said she did not come to the emergency room right away because she needed a ride and she has other social circumstances she mentions often with regard to why she has a nd has not done certain things regarding her healthcare. On my interview, she is watching Pfenex, in no distress whatsoever. PAST MEDICAL/SURGICAL HISTORY: Smoker, right MCA aneurysm coiling in 2007, fibromyalgia, COPD, on c ontinuous O2. HOME MEDICATIONS: Xopenex, Prilosec, atorvastatin, amlodipine, fentanyl patch, estradiol, clonidine , oxycodone IR. ALLERGIES: No known drug allergies. SOCIAL HISTORY: Everyday smoker. Denies alcohol or drug abuse. FAMILY HISTORY: Noncontributory, as this was a traumatic event. REVIEW OF SYSTEMS: Ten points were reviewed and are negative other than mentioned in the HPI. VITALS: Blood pressure 131/73, heart rate 70, temperature current 36.8, respiratory rate 14, satura ting 99% on 2 L nasal cannula. LABORATORIES: White blood cells 8.9, hemoglobin 11.1, platelet count 293. PT/INR 14.8 and 1.16. P TT 28.5. Sodium 130, potassium 4.0, BUN and creatinine 3 and 0.7, glucose 123, calcium 8.8. NEUROLOGIC EXAM: Patient is awake, alert, oriented x3. Appears stated age. She is on oxygen. Spe aks as if she has COPD. She is tangential and rambles often, and does not provide a very good histo ry. She has normal cranial nerves. She is tremulous but she is strong and nonfocal everywhere. Sh e has no pronator drift. She has a rolling walker at the bedside. Gait is deferred. There are no abnormal reflexes. IMAGING: I reviewed two of the patient's head CTs, one performed last evening and another this morn ing, that demonstrate a subacute subdural hematoma on the right side in the frontoparietal region. there is minimal if any midline shift. It is stable this morning. There are no skull fr actures. IMPRESSION AND PLAN: The patient is a 66-year-old female with multiple medical problems. She state s she hit her head 10 days ago and presented to the ED last evening with complaints of nausea and vo miting episodes, generalized fatigue and weakness, today with ambulation. She had a head CT that demonstrates a thin, right-sided frontoparietal subacute subdural hematoma that is stable o n repeat. She has a reassuring neurologic exam today. I recommend that we try to mobilize her, get her some physical therapy. I see no indications for her to remain admitted to the hospital should she clear therapy, and I told her that she should plan for discharge home tomorrow to follow up with her primary care doctor for all of her other medical concerns. of Trauma Surgery violet trevino also evaluated her, which is appreciated, but I do not believe that there are any other issues at hand that he needs to follow along for. /[id number]/MODL
--- NOTE | 2017-01-05 13:40 | SOAPPROG ---
SOAP Progress Note Assessment/Plan: Assessment: Plan: Subjective: yeimi small subdural. care and dispo per neurosurgery. Objective: Vital Signs Temp Pulse Resp BP Pulse Ox 36.8 C 94 16 131/73 H 95 01/05/17 08:00 01/05/17 12:20 01/05/17 12:20 01/05/17 09:39 01/05/17 12:20 01/04/17 01/05/17 01/06/17 05:59 05:59 05:59 Intake Total 600 913 Balance 600 913 PT 14.8 SEC (12.0-15.0) 01/04/17 20:59 INR 1.16 (0.83-1.16) 01/04/17 20:59 ICD10 Worksheet Patient Problems: Problems Problem Status Onset Chronic pain Acute Closed head injury Acute Concussion Acute SDH (subdural hematoma) Acute Congestive heart failure Acute Hypoxemia Acute Respiratory failure Acute
[2017-01-05] MEDS: ACETAMINOPHEN 325 MG TAB PO PRN (14:51)
[2017-01-05] MEDS: OXYMETAZOLINE 30 ML NASAL SPRAY EACHNARE PRN (15:07)
[2017-01-05] MEDS: OXYCODONE/APAP 5/325 TAB PO PRN (17:27)
[2017-01-06] MEDS ORDERED: LORazepam 2 MG/ML INJ IVP PRN (00:50)
[2017-01-06] MEDS: ACETAMINOPHEN 325 MG TAB PO PRN (04:22)
[2017-01-06] MEDS: oxyCODONE IR 15 MG TAB PO PRN ×2 (04:22→08:48)
[2017-01-06] MEDS: OXYMETAZOLINE 30 ML NASAL SPRAY EACHNARE PRN (05:12)
[2017-01-06] MEDS: IPRATROPIUM/ALBUTEROL 3 ML DEYVIAL IH SCH ×2 (05:50→12:10)
[2017-01-06 07:37] VITALS: BP 92/72; PULSE 66; RESP 22; TEMP 98; O2SAT 96
[2017-01-06] MEDS: FUROSEMIDE 20 MG TAB PO SCH (08:47)
[2017-01-06] MEDS: ATORVASTATIN CALCIUM 40 MG TAB PO SCH (08:47)
[2017-01-06] MEDS: PANTOPRAZOLE SODIUM 40 MG TAB PO SCH (08:48)
[2017-01-06] MEDS: SENNOSIDES/DOCUSATE SODIUM TAB PO SCH (08:49)
--- NOTE | 2017-01-06 11:15 | NEUSURGPN ---
Assessment/Plan: 66 y/o female with a thin right sided SDH Neurologically stable this am If repeat HCT stable can discharge to home today. Please notify NS with any change in neuro/motor exam Discussed with Dr. Burton Subjective: Neyda any headaches, nausea Objective: NAD A&Ox3 MAEx4 5/5 and equal in BUE and BLE. CN II-XII grossly intact - Physician Discussed Patient with : [facility] Neurosurgery Physical Exam - Vitals, I&O, Labs I and O 01/05/17 01/06/17 01/07/17 05:59 05:59 05:59 Intake Total 600 2063 Output Total 700 Balance 600 1363 Weight 71 kg Intake: Oral (ml) 400 1250 IV Infused (ml) 200 813 NS W/ 20 KCl/L 1,000 ml @ 200 813 50 mls/hr IV CONT YANNI Rx #:[id number] Output: Urine (ml) 700 Toilet 700 Other: Intake Quantity Yes Sufficient Number of Voids Toilet 2 1 Vital Signs Temp Pulse Resp BP Pulse Ox 36.7 C 66 22 H 92/72 L 96 01/06/17 07:34 01/06/17 07:34 01/06/17 07:34 01/06/17 07:34 01/06/17 07:34 ICD10 Worksheet Patient Problems: Problems Problem Status Onset Chronic pain Acute Closed head injury Acute Concussion Acute SDH (subdural hematoma) Acute Congestive heart failure Acute Hypoxemia Acute Respiratory failure Acute
[2017-01-06] MEDS: OXYCODONE/APAP 5/325 TAB PO PRN (11:27)
--- NOTE | 2017-01-06 13:23 | SOAPPROG ---
SOAP Progress Note Assessment/Plan: Assessment: VS STABLE/ HEAD CT STABLE/ CO INTERMITTENT TREMORS Plan:WILL SIGN OFF / CARE PER NS 01/06/17 13:22 Objective: Vital Signs Temp Pulse Resp BP Pulse Ox 36.7 C 66 22 H 92/72 L 96 01/06/17 07:34 01/06/17 07:34 01/06/17 07:34 01/06/17 07:34 01/06/17 07:34 01/05/17 01/06/17 01/07/17 05:59 05:59 05:59 Intake Total 600 2063 400 Output Total 700 650 Balance 600 1363 -250 PT 14.8 SEC (12.0-15.0) 01/04/17 20:59 INR 1.16 (0.83-1.16) 01/04/17 20:59 ICD10 Worksheet Patient Problems: Problems Problem Status Onset Chronic pain Acute Closed head injury Acute Concussion Acute SDH (subdural hematoma) Acute Congestive heart failure Acute Hypoxemia Acute Respiratory failure Acute
== END 2017-01-06 14:19 | disposition home or self-care (01) | DRG 87 ==
LOC: OBSVTOIN 22:02 → F2N 22:14 → F3N 01-05 11:36
PROVIDERS: ADMIT Neurological Surgery; ATTEND Neurological Surgery
DX: S06.5X0A Traumatic subdural hemorrhage without loss of consciousness, initial encounter (principal); W18.12XA Fall from or off toilet with subsequent striking against object, initial encounter; G89.4 Chronic pain syndrome; M79.7 Fibromyalgia; J44.9 Chronic obstructive pulmonary disease, unspecified; Z99.81 Dependence on supplemental oxygen; Z91.81 History of falling; Z72.0 Tobacco use
CPT/HCPCS: 97161-GP; G8978-GP-CI; G8979-GP-CI; J2060

== ENCOUNTER 2017-01-09 11:39 | Emergency (ER) | payer OTHER, MEDICAID ==
[2017-01-09 11:46] VITALS: RESP 16; TEMP 98.6
[2017-01-09 12:55] VITALS: BP 128/94; PULSE 82; O2SAT 93
--- NOTE | 2017-01-09 13:35 | EDPHY ---
H & P Time Seen by Provider: 01/09/17 13:29 HPI/ROS: CHIEF COMPLAINT: Headache, nausea HISTORY OF PRESENT ILLNESS: The patient is a 66-year-old female with recent right subdural hematoma 01/04/17, discharged home 01/07/17 who presents with continuous headache since discharge. Patient has been taking Oxycodone and finding no relief. The headache has not worsened. She has associated blurred vision. No unilateral deficits. She reports associated nausea and vomiting unrelieved with Phenergan. Patient had three unchanged head CTs during admission , she is scheduled for an MRI at 4pm today and has an appointment with her primary care physician today. The patient additionally complains of intolerable back pain after her recent fall. She has been taking Oxycodone, uses a Fentanyl patch, as well as a Lidocaine patch and not finding relief. She continues to ask for a Cortisone shot for her back pain. She denies lower extremity weakness or numbness. No loss of bladder or bowel control. REVIEW OF SYSTEMS: A comprehensive 10 point review of systems is otherwise negative aside from elements mentioned in the history of present illness. Past Medical/Surgical History: Right subdural hematoma, Fibromyalgia, Arthritis, DJD, HTN, COPD Social History: Cigarette smoker. Single. Lives in [place]. Smoking Status: Current every day smoker Physical Exam: General Appearance: Alert, conversing, does not appear in pain Eyes: Pupils equal and round, no conjunctival pallor or injection ENT, Mouth: Mucous membranes moist Neck: Normal inspection Respiratory: Lungs are clear to auscultation Cardiovascular: Regular rate and rhythm Gastrointestinal: Abdomen is soft and non-tender Back: lower paraspinous tenderness Neurological: Alert, oriented x3, cranial nerves II through XII intact, motor 5 /5, sensory intact to light touch, uses walker with steady gait Skin: Warm and dry, no rash Extremities: Nontender, no pedal edema Psychiatric: Mood and affect normal Constitutional: Initial Vital Signs Temperature (C) 37 C 01/09/17 11:43 Heart Rate 86 01/09/17 11:43 Respiratory Rate 16 01/09/17 11:43 Blood Pressure 137/97 H 01/09/17 11:43 O2 Sat (%) 92 01/09/17 11:43 O2 Delivery Mode Room Air Allergies/Adverse Reactions: No Known Allergies Allergy (Verified 01/04/17 18:17) Home Medications: Medication Instructions Recorded Levalbuterol Inhaler [Xopenex Hfa 1 puffs IH Q4HRS PRN 10/31/16 Inhaler (*)] Omeprazole [Prilosec 20 mg] 20 mg PO DAILY 10/31/16 amLODIPine/ATORVASTATIN 1 each PO DAILY 10/31/16 [Amlodipine-Atorvast 10-40 mg] fentaNYL [Duragesic 75 MCG Patch 75 mcg TD Q72H 10/31/16 (*)] Furosemide [Lasix 20 MG (*)] 20 mg PO DAILY #30 tab 11/15/16 Ipratropium/Albuterol [Duoneb (*)] 3 ml IH QID #20 deyvial 11/15/16 Estradiol [Climara] 0.5 each TD Q3D 01/04/17 clonIDINE [Catapres (*)] 0.1 mg TP BID 01/04/17 oxyCODONE IR [Oxycodone Ir (*)] 30 mg PO .6XD PRN 01/04/17 Acetaminophen [Tylenol 325mg (*)] 650 mg PO Q4HRS PRN #0 tab 01/06/17 Ondansetron Odt [Zofran Odt 4 mg 4 mg PO Q4 PRN #6 tab 01/09/17 (*)] Medical Decision Making - Diagnostics Imaging Results: Imaging Impressions Lumbar Spine X-Ray 01/09/17 13:53 Impression: No evidence for acute fracture. Mild multilevel degenerative disk and degenerative joint disease of the lumbar spine stable in appearance. Levoscoliotic curvature. Imaging: I viewed and interpreted images myself ED Course/Re-evaluation: Patient with subdural hematoma diagnosed 01/04/17 after a fall presents with ongoing headache and severe back pain. Patient requests Cortisone shot from the ED. I had a length discussion with the patient about following up with her PCP. Patient has a scheduled MRI at 4pm today and an appointment with Dr. López at 5pm. I ordered x-ray imaging of her back at her request. Xray negative for acute fracture. She would like to go to her MRI appointment and to see Dr. López. I feel that she is safe and stable for discharge. I do not feel that neuro imaging is indicated on an emergency basis. Departure - Departure Disposition: Home, Routine, Self-Care Clinical Impression: Nausea Headache Qualifiers: Headache type: post-traumatic Headache chronicity pattern: acute headache Intractability: not intractable Qualified Code(s): G44.319 - Acute post- traumatic headache, not intractable Back pain Qualifiers: Back pain location: low back pain Chronicity: acute Back pain laterality: right Sciatica presence: without sciatica Qualified Code(s): M54.5 - Low back pain Condition: Good Instructions: Back Pain (ED), General Headache (ED) Additional Instructions: Please proceed to your MRI as scheduled. Keep your appointment with Dr. López at 5pm today. Be sure to discussed Cortisone shots during your appointment. Return to the Emergency Department if headache worsens or if you develop new symptoms. Referrals: Maynor López [Primary Care Provider] - As per Instructions Prescriptions: Ondansetron Odt [Zofran Odt 4 mg (*)] 4 mg PO Q4 PRN #6 tab PRN Reason: Nausea Report Scribed for: Gisele Leal Report Scribed by: Leeanne Shell Date of Report: 01/09/17 Time of Report: 13:37 Physician Review and Approval Statement: 01/09/17 13:37 Portions of this note were transcribed by a certified medical dosimetrist. I personally performed the history, physical exam, and medical decision-making; and confirmed the accuracy of the information in the transcribed note.
== END 2017-01-09 14:34 | disposition home or self-care (01) ==
DX: S39.92XA Unspecified injury of lower back, initial encounter (principal); G44.319 Acute post-traumatic headache, not intractable; I10 Essential (primary) hypertension; J44.9 Chronic obstructive pulmonary disease, unspecified; F17.210 Nicotine dependence, cigarettes, uncomplicated; W19.XXXA Unspecified fall, initial encounter

== ENCOUNTER → 2017-01-09 | Outpatient (CLI) | payer OTHER, MEDICAID | LOC: FIMAGING 14:49 | PROVIDERS: ATTEND Family Medicine | DX: I62.00 Nontraumatic subdural hemorrhage, unspecified (principal); J32.0 Chronic maxillary sinusitis | CPT/HCPCS: G0202 ==

== ENCOUNTER → 2017-02-19 | Outpatient (CLI) | payer OTHER, MEDICAID ==
--- NOTE | 2017-02-19 12:06 | NOWCEV ---
[facility] OUTPATIENT REHABILITATION SERVICES [facility]EL[facility] CLINIC EVALUATION AND LETTER OF JUSTIFICATION Patient Name: FREDY ABDUL Caorl Physician: Maynor López MD Evjulia Date: 02/19/17 Therapist: Jill Poon PT,MSPT Date of : 1950 MR#: [id number] Contact: FREDY ABDUL Subscriber: FREDY ABDUL Primary Ins: [facility] [employer] Subscriber #: [id number] EVALUATION FINDINGS Medical history - Fredy is a 66y/o female with PMH significant for COPD with hypoxemia (for which she utilizes 3L of supplemental oxygen at rest), fibromyalgia, and a significant fall history which ultimately resulted in a traumatic subdural hemorrhage. Fredy was referred to this clinic by her doctor to have recommendation made for the most appropriate power mobility device to maximize Fredy's safe, independent access to MRADLs within her home. Functional Mobility - Fredy has limited mobility within her home. She utilizes either a sc, rollator walker or furniture surfs in her home. Despite use of her assistive devices, Fredy has a very significant fall history. She reports falling twice this morning prior to the appointment. When Fredy walks her gait is characterized by increased lateral sway, absent heel strike and scuffing feet , flexed and kyphotic posture with use of supplemental oxygen. ............ Motor involvement - Fredy has significant weakness throughout her UEs and LEs. MMT is as follows: ankle DF/PF eversion B: 3+/5, knee extension: 3+/5, hip flexion R: 3-/5, L: 3/5, hip abduction B: 3/5, shoulder flexion and abduction B : 3/5. Ankle DF is limited to 0 degrees. Posture - Fredy sits with a kyphotic posture, rounded shoulders and a forward head. Her R shoulder is elevated and her has a scoliotic curve with a L thoracic convexity. Skin /Sensation - Fredy has no history of skin breakdown. She does have diminished sensation in her feet from neuropathy. She has swelling in B lower legs, R: 1+, L: 2+. Endurance - [] ADLs - [] Cognitive/Social - Fredy lives alone in a 2 story home with a level entry. She does not use the second level of her home. She has assistance to complete cleaning and laundry from [employer]. She has difficulty completing ....... Current wheelchair - Fredy does not currently own any power or manual wheelchairs or scooters. She has trialed driving both PWC and power scooter and found the scooter easier to maneuver, and would fit her needs to access her home. MEDICAL and FUNCTIONAL NEED/OBJECTIVES * To procure a power scooter to provide Fredy with safe and consistent access to MRADLs within her home. PRIMARY FUNCTIONAL LIMITATION (G Code) * Mobility CURRENT STATUS OF PRIMARY FUNCTIONAL LIMITATION (Severity Modifier) * At least 60 percent but less than 80 percent impaired, limited or restricted ( CL) * GOAL STATUS OF PRIMARY FUNCTIONAL LIMITATION (Severity Modifier) * At least 60 percent but less than 80 percent impaired, limited or restricted ( CL) DISCHARGE STATUS OF PRIMARY FUNCTIONAL LIMITATION (Severity Modifier) * At least 60 percent but less than 80 percent impaired, limited or restricted ( CL) EQUIPMENT RECOMMENDATIONS AND JUSTIFICATIONS The following recommendations are believed to be the most cost effective way to meet the patients medical and functional needs. * Go Go tracker elite: Needed to provide Fredy with safe and consistent access to MRADLs in her home, as well as access to medical appointments. This is necessary as Fredy has significantly limited endurance and pain to stand and ambulate to access MRALS in her home due to her COPD and fibromyalgia. She also has a significatn fall history when ambulating in her home, even with an AD. A scooter will provide Fredy with access to areas in her home including the bathroom, kitchen and bedroom without placing her at risk for fall and to conserve energy so she is able to independently perform ADLs. Fredy has trialed both a power scooter and a PWC and found the scooter easier to maneuver, and more comfortable for daily use in the home. Fredy will be able to safely and independently perform transfer on/off the scooter. * Batteries: : Needed to provide the scooter with power to allow Fredy to drive her scooter and access MRADLs. These recommendations are based on the likelihood that Fredy will require the use of a wheelchair for mobility for the rest of her life. If you have any questions or concerns regarding the stated recommendations, please feel free to contact the therapist at . Thank you for your cooperation in obtaining the necessary equipment for this patient. ARUN Rodriguez
== END ==
PROVIDERS: ATTEND Family Medicine
DX: Z46.89 Encounter for fitting and adjustment of other specified devices (principal); R29.6 Repeated falls; M79.7 Fibromyalgia; J44.1 Chronic obstructive pulmonary disease with (acute) exacerbation; Z91.81 History of falling; Z87.820 Personal history of traumatic brain injury
CPT/HCPCS: 97162; G8978; G8979; G8980

== ENCOUNTER → 2017-12-03 | Outpatient (CLI) | payer OTHER, MEDICAID | LOC: FIMAGING 15:24 | PROVIDERS: ATTEND Family Medicine | DX: S92.321A Displaced fracture of second metatarsal bone, right foot, initial encounter for closed fracture (principal); S92.331A Displaced fracture of third metatarsal bone, right foot, initial encounter for closed fracture ==

== ENCOUNTER 2018-06-26 18:08 | Emergency (ER) | payer OTHER, MEDICAID ==
[2018-06-26] MEDS ORDERED: VANCOMYCIN HCL/NORMAL SALINE 250 ML IV ONE (19:23)
[2018-06-26 20:11] LABS: PLATELET COUNT 362 10^3/uL (150-400)
[2018-06-26] MEDS ORDERED: GADOBUTROL 10 ML VIAL IVP ONE (20:58)
--- NOTE | 2018-06-26 21:14 | EDPHY ---
H & P Time Seen by Provider: 06/26/18 18:57 HPI/ROS: Chief complaint. Foot ulceration HPI. Patient is a 67-year-old female with an ulcer on the bottom of her right foot for approximately 1 year. She has neuropathy in both feet. She has had previous right foot fractures x5. She was really unaware of the ulcer on her foot until saw her PCP today. She describes 1 week of increasing redness and swelling to the instep of her right foot going up to the tibial area. Denies fever. She really has no pain as she has neuropathy. No chest pain or shortness of breath. She was previously treated [facility] in April 2018. ROS 10 systems were reviewed and negative with the exception of the elements mentioned in the history of present illness Past Medical/Surgical History: Past medical history significant for fibromyalgia, arthritis, hypertension, COPD on home oxygen, congestive heart failure, closed-head injury, chronic pain Social History: Single, daily smoker, no alcohol Smoking Status: Heavy smoker Physical Exam: General Appearance: Alert well-developed female mild distress vital signs are stable. Afebrile Eyes: Pupils equal and round no pallor or injection. ENT, Mouth: Mucous membranes are moist. Respiratory: There are no retractions, lungs are clear to auscultation. Cardiovascular: Regular rate and rhythm. Gastrointestinal: Abdomen is soft and nontender, no masses, bowel sounds normal. Neurological: Awake and alert, sensory and motor exams grossly normal. Skin: Warm and dry, no rashes. Musculoskeletal: Neck is supple nontender. Extremities there is a 1 cm ulcer on the instep of the bottom of her right foot. Surrounding swelling and erythema. No obvious drainage. She has erythema to mid tibial area. I probed the wound with sterile Q-tip and I am unable to touch the bone. Psychiatric: Patient is oriented X 3, there is no agitation. Constitutional: Initial Vital Signs Temperature (C) 36.5 C 06/26/18 18:24 Heart Rate 80 06/26/18 18:24 Respiratory Rate 16 06/26/18 18:24 Blood Pressure 97/77 L 18 18:24 O2 Sat (%) 95 06/26/18 18:24 O2 Delivery Mode Room Air Allergies/Adverse Reactions: No Known Allergies Allergy (Verified 06/26/18 18:22) Home Medications: Medication Instructions Recorded Levalbuterol Inhaler [Xopenex Hfa 1 puffs IH Q4HRS PRN 10/31/16 Inhaler (*)] Ipratropium/Albuterol [Duoneb (*)] 3 ml IH QID #20 deyvial 11/15/16 clonIDINE [Catapres (*)] 0.1 mg PO BID 01/04/17 oxyCODONE IR [Oxycodone Ir (*)] 30 mg PO .6XD PRN 01/04/17 Acetaminophen [Tylenol 325mg (*)] 650 mg PO Q4HRS PRN #0 tab 01/06/17 Diazepam [Valium 2 MG (*)] 2 mg PO BID 02/04/18 Esomeprazole Mag Trihydrate 40 mg PO DAILY 02/04/18 [Nexium] Estradiol [Estraderm 0.1 MG (RX)] 0.1 mg TD Q7D 02/04/18 Famotidine [Pepcid 20 MG (*)] 20 mg PO DAILY 02/04/18 Polyethylene Glycol 3350 [Miralax 17 gm PO DAILY 02/04/18 17 gm (*)] fentaNYL [Duragesic 50 MCG Patch 50 mcg TD Q72H 02/04/18 (*)] Ofloxacin 0.3% [Ocuflox 0.3%] 1 drops OP TID 02/07/18 Acetaminophen [Tylenol ES 500 mg 1,000 mg PO TID@0000,0800,1600 #90 02/14/18 (*)] tab Gabapentin [Neurontin 300 MG (*)] 300 mg PO TID #90 cap 02/14/18 Ibuprofen [Motrin (*)] 200 mg PO Q6H #60 tab 02/14/18 Sennosides/Docusate Sodium 1 - 2 tab PO BID tab 02/14/18 [Senokot-S] Medical Decision Making - Diagnostics Imaging Results: Imaging Impressions Foot X-Ray 06/26/18 19:23 Impression: Progressive erosive change at the first cuneiform metatarsal articulation suggesting osteomyelitis with surrounding soft tissue swelling. Interval healing of mid diaphysis fracture of the third metatarsal and no significant osseous bridging at the fracture of the base of the second metatarsal. X-ray right foot shows progressive erosive change of the 1st metatarsal that is suggestive of osteomyelitis MRI foot with IV contrast reviewed by me and discussed with Dr. Del Angel is positive for osteomyelitis of the 1st metatarsal. Procedures: IV normal saline. Blood cultures and wound culture are obtained. Lactate is obtained and is normal. IV vancomycin after blood cultures ED Course/Re-evaluation: Re-evaluation at 9:45 p.m.. Patient and I discussed imaging and lab results. We discussed treatment plan including recommendation for admission. The patient however refuses admission saying that she has too much to do and that she will come back tomorrow. She and I discussed risks and benefits of this plan. She understands that the infection will progress. She is competent to make a decision. Differential Diagnosis: Patient has foot ulceration with cellulitis to mid tibia. She has received blood cultures and 1 dose of vancomycin. X-ray shows bone erosion and MRI confirms osteomyelitis. Patient is leaving against medical advice - Data Points Laboratory Results: Laboratory Results 06/26/18 19:55 06/26/18 19:55 06/26/18 06/26/18 06/26/18 19:55 19:55 19:53 WBC 9.26 10^3/uL 10^3/uL (3.80-9.50) RBC 3.56 10^6/uL L 10^6/uL (4.18-5.33) Hgb 11.1 g/dL L g/dL (12.6-16.3) Hct 32.6 % L % (38.0-47.0) MCV 91.6 fL fL (81.5-99.8) MCH 31.2 pg pg (27.9-34.1) MCHC 34.0 g/dL g/dL (32.4-36.7) RDW 12.4 % % (11.5-15.2) Plt Count 362 10^3/uL 10^3/uL (150-400) MPV 8.3 fL L fL (8.7-11.7) Neut % (Auto) 65.9 % % (39.3-74.2) Lymph % (Auto) 25.5 % % (15.0-45.0) [place] % (Auto) 7.3 % % (4.5-13.0) Eos % (Auto) 0.6 % % (0.6-7.6) Baso % (Auto) 0.3 % % (0.3-1.7) Nucleat RBC Rel Count 0.0 % % (0.0-0.2) Absolute Neuts (auto) 6.09 10^3/uL 10^3/uL (1.70-6.50) Absolute Lymphs (auto) 2.36 10^3/uL 10^3/uL (1.00-3.00) Absolute Monos (auto) 0.68 10^3/uL 10^3/uL (0.30-0.80) Absolute Eos (auto) 0.06 10^3/uL 10^3/uL (0.03-0.40) Absolute Basos (auto) 0.03 10^3/uL 10^3/uL (0.02-0.10) Absolute Nucleated RBC 0.00 10^3/uL 10^3/uL (0-0.01) Immature Gran % 0.4 % % (0.0-1.1) Immature Gran # 0.04 10^3/uL 10^3/uL (0.00-0.10) VBG Lactic Acid 0.5 mmol/L L mmol/L (0.7-2.1) Sodium 129 mEq/L L mEq/L (135-145) Potassium 4.3 mEq/L mEq/L (3.5-5.2) Chloride 93 mEq/L L mEq/L (97-110) Carbon Dioxide 25 mEq/l mEq/l (22-31) Anion Gap 11 mEq/L mEq/L (6-14) BUN 7 mg/dL mg/dL (7-23) Creatinine 0.6 mg/dL mg/dL (0.6-1.0) Estimated GFR > 60 Glucose 106 mg/dL H mg/dL (70-100) Calcium 8.5 mg/dL mg/dL (8.5-10.4) Microbiology Results: MICROBIOLOGY 06/26/18 19:15 Foot - Swab Gram Stain - Final Departure - Departure Disposition: Against Medical Advice Clinical Impression: Osteomyelitis Qualifiers: Osteomyelitis type: unspecified type Osteomyelitis location: foot Laterality: right Qualified Code(s): M86.9 - Osteomyelitis, unspecified Condition: Fair Instructions: Osteomyelitis (ED) Additional Instructions: Return tomorrow for admission. Otherwise follow up with your regular physician tomorrow without fail Referrals: Raoul Giles [Primary Care Provider] - 1 day without fail
[2018-06-26 23:21] VITALS: BP 113/72
== END 2018-06-26 23:21 | disposition left against medical advice (07) ==
DX: M86.9 Osteomyelitis, unspecified (principal); J44.9 Chronic obstructive pulmonary disease, unspecified; I11.0 Hypertensive heart disease with heart failure; I50.9 Heart failure, unspecified; G62.9 Polyneuropathy, unspecified; M79.7 Fibromyalgia
CPT/HCPCS: 73630; 73720; 96365; 99285; A9585; J3370

== ENCOUNTER 2018-07-04 18:01 | Inpatient (IN) | payer OTHER, MEDICAID ==
--- NOTE | 2018-07-04 18:41 | EDPHY ---
H & P Time Seen by Provider: 07/04/18 18:03 HPI/ROS: CHIEF COMPLAINT: Osteomyelitis HISTORY OF PRESENT ILLNESS: 67-year-old woman has a ulcer on the bottom of her right foot for about a year. She has history of neuropathy in both feet. She presents to the emergency department on June 26 and had an MRI positive for osteomyelitis in the 1st metatarsal of the right foot, and a culture was positive for Pseudomonas. A she it did not get admitted for further treatment at that time because she has 2 cats, Matthew and Selma which she was unwilling to let be at home by themselves. Her feline handling tech arrived back in town yesterday and she presents today for further treatment. Patient continues to have an ulcer on her foot. No fever or chills and no leg swelling. REVIEW OF SYSTEMS: Eye: no change in vision ENT: no sore throat Cardiac: no chest pain or syncope Pulmonary: no cough or SOB Abdomen: no vomiting, diarrhea, abdominal pain Musculoskeletal: Multiple areas of chronic pain unchanged Skin: Right foot ulcer with surrounding redness. Also has a dorsal left hand skin lesion which is painful. Neuro: no headache Constitutional: no fever : no urinary symptoms A comprehensive 10 point review of systems is otherwise negative aside from elements mentioned in the history of present illness. PAST MEDICAL HISTORY: Includes fibromyalgia, arthritis, hypertension, COPD and chronic pain he Social history: Tobacco smoker General Appearance: Alert and conversant, cooperative. Eyes: No scleral icterus. ENT, Mouth: Normal mucous membranes. Respiratory: Normal respiratory effort, breath sounds equal, lungs are clear to auscultation. Cardiovascular: Regular rate and rhythm. Gastrointestinal: Abdomen is soft and non tender. Neurological: Alert, face symmetric, normal motor and sensory in extremities. Skin: Abrasion on the dorsum of the left hand without evidence of cellulitis. 1 cm right medial instep ulcer with surrounding redness 4 cm on each side. No lymphangitis. Musculoskeletal: Peripheral edema present. Psychiatric: Not agitated. Emergency Department course/MDM: 184: discussed with Hortencia. Recommends Zosyn 3.375 g IV. Smoking Status: Heavy smoker Constitutional: Initial Vital Signs Temperature (C) 36.7 C 07/04/18 18:24 Heart Rate 97 07/04/18 18:24 Respiratory Rate 16 07/04/18 18:24 Blood Pressure 152/91 H 07/04/18 18:24 O2 Sat (%) 95 07/04/18 18:24 O2 Delivery Mode Room Air Allergies/Adverse Reactions: No Known Allergies Allergy (Verified 06/26/18 18:22) Home Medications: Medication Instructions Recorded Levalbuterol Inhaler [Xopenex Hfa 1 puffs IH Q4HRS PRN 10/31/16 Inhaler (*)] clonIDINE [Catapres (*)] 0.05 mg PO BID 01/04/17 oxyCODONE IR [Oxycodone Ir (*)] 30 mg PO .6XD PRN 01/04/17 Acetaminophen [Tylenol 325mg (*)] 650 mg PO Q4HRS PRN #0 tab 01/06/17 Diazepam [Valium 2 MG (*)] 1 mg PO BID 02/04/18 Estradiol [Estraderm 0.1 MG (RX)] 0.1 mg TD FR 02/04/18 Famotidine [Pepcid 20 MG (*)] 20 mg PO DAILY 02/04/18 Polyethylene Glycol 3350 [Miralax 17 gm PO DAILY PRN 02/04/18 17 gm (*)] fentaNYL [Duragesic 50 MCG Patch 50 mcg TD Q72H 02/04/18 (*)] Ibuprofen [Motrin (*)] 200 mg PO Q6H #60 tab 02/14/18 Gabapentin [Neurontin 300 MG (*)] 300 mg PO BID 07/04/18 Ipratropium/Albuterol [Duoneb (*)] 3 ml IH QID PRN 07/04/18 Sennosides/Docusate Sodium 1 - 2 tab PO BID PRN 07/04/18 [Senokot-S] Spironolactone [Aldactone 25 MG 25 mg PO DAILY 07/04/18 (*)] Medical Decision Making Differential Diagnosis: Differential considered including but not limited to fasciitis, cellulitis, abscess, osteomyelitis. Consult/Admit Bed Type: David 1905, Federico 1911 - Data Points Laboratory Results: Laboratory Results 07/04/18 18:46 07/04/18 18:46 07/04/18 07/04/18 07/04/18 18:46 18:46 18:46 WBC 11.99 10^3/uL H 10^3/uL (3.80-9.50) RBC 3.88 10^6/uL L 10^6/uL (4.18-5.33) Hgb 12.2 g/dL L g/dL (12.6-16.3) Hct 35.3 % L % (38.0-47.0) MCV 91.0 fL fL (81.5-99.8) MCH 31.4 pg pg (27.9-34.1) MCHC 34.6 g/dL g/dL (32.4-36.7) RDW 12.2 % % (11.5-15.2) Plt Count 395 10^3/uL 10^3/uL (150-400) MPV 8.4 fL L fL (8.7-11.7) Neut % (Auto) 73.7 % % (39.3-74.2) Lymph % (Auto) 19.2 % % (15.0-45.0) [place] % (Auto) 5.9 % % (4.5-13.0) Eos % (Auto) 0.4 % L % (0.6-7.6) Baso % (Auto) 0.4 % % (0.3-1.7) Nucleat RBC Rel Count 0.0 % % (0.0-0.2) Absolute Neuts (auto) 8.83 10^3/uL H 10^3/uL (1.70-6.50) Absolute Lymphs (auto) 2.30 10^3/uL 10^3/uL (1.00-3.00) Absolute Monos (auto) 0.71 10^3/uL 10^3/uL (0.30-0.80) Absolute Eos (auto) 0.05 10^3/uL 10^3/uL (0.03-0.40) Absolute Basos (auto) 0.05 10^3/uL 10^3/uL (0.02-0.10) Absolute Nucleated RBC 0.00 10^3/uL 10^3/uL (0-0.01) Immature Gran % 0.4 % % (0.0-1.1) Immature Gran # 0.05 10^3/uL 10^3/uL (0.00-0.10) VBG Lactic Acid 1.2 mmol/L mmol/L (0.7-2.1) Sodium 124 mEq/L L mEq/L (135-145) Potassium 3.7 mEq/L mEq/L (3.5-5.2) Chloride 90 mEq/L L mEq/L (97-110) Carbon Dioxide 23 mEq/l mEq/l (22-31) Anion Gap 11 mEq/L mEq/L (6-14) BUN 7 mg/dL mg/dL (7-23) Creatinine 0.6 mg/dL mg/dL (0.6-1.0) Estimated GFR > 60 Glucose 119 mg/dL H mg/dL (70-100) Calcium 9.1 mg/dL mg/dL (8.5-10.4) Medications Given: Discontinued Medications Piperacillin/Tazobactam/Dextrose (Zosyn 3.375 Gm (Premix)) 50 mls @ 100 mls/hr IV EDNOW ONE PRN Reason: Protocol Stop: 07/04/18 19:15 Last Admin: 07/04/18 19:43 Dose: 50 mls Departure - Departure Disposition: [facility] Inpatient Acute Clinical Impression: Hyponatremia Osteomyelitis Qualifiers: Osteomyelitis type: unspecified type Osteomyelitis location: foot Laterality: right Qualified Code(s): M86.9 - Osteomyelitis, unspecified Condition: Good
[2018-07-04] MEDS ORDERED: PIPERACILLIN/TAZO 3.375 GM/DEX 50 ML IV ONE (18:46)
[2018-07-04 19:07] LABS: PLATELET COUNT 395 10^3/uL (150-400)
[2018-07-04] MEDS ORDERED: ONDANSETRON 4 MG/2 ML VIAL IVP PRN (21:01)
[2018-07-04] MEDS ORDERED: oxyCODONE IR 5 MG TAB PO PRN (21:01)
[2018-07-04] MEDS ORDERED: ONDANSETRON DISINTEGRATING 4 MG TAB PO PRN (21:01)
[2018-07-04] MEDS ORDERED: POLYETHYLENE GLYCOL 3350 17 GM PKT PO PRN (21:02)
[2018-07-04] MEDS ORDERED: IPRATROPIUM/ALBUTEROL 3 ML DEYVIAL IH PRN (21:02)
[2018-07-04] MEDS ORDERED: LEVALBUTEROL INHALER 200 PUFFS/15 GM MDI IH PRN (21:02)
[2018-07-04] MEDS ORDERED: LORazepam 2 MG/ML INJ IVP ONE (21:18)
--- NOTE | 2018-07-04 21:25 | PDGENHP ---
History and Physical - Chief Complaint osteomyelitis - History of Present Illness 67yo F with chronic opioid and benzodiazepine dependency who was diagnosed with Pseudomonas osteomyelitis of right foot on 06/26 presents for treatment. She came to ED on 06/26 for worsening swelling and redness on in-sole of her right foot. MRI at that time showed worsening OM of 1st metatarsal (when compared to MRI). A wound culture taken grew Pseudomonas aeruginosa. She was recommend to come in for IV antibiotics but refused and left against medical advice. She states that she didn't want to miss the holidays and had no one to take care of her cats. She returns today for treatment. She reports increasing swelling, redness, and pain in right foot. The redness has been spreading up her right glez. Also reports low grade fevers and chills and nausea. In the ED, she was afebrile. ID (Dr Burnett) was consulted and she received IV zosyn. History Information - Allergies/Home Medication List Allergies/Adverse Reactions: No Known Allergies Allergy (Verified 06/26/18 18:22) Home Medications: Levalbuterol Inhaler [Xopenex Hfa Inhaler (*)] 1 puffs IH Q4HRS PRN 10/31/16 [ Last Taken Unknown] clonIDINE [Catapres (*)] 0.05 mg PO BID 01/04/17 [Last Taken 07/04/18] oxyCODONE IR [Oxycodone Ir (*)] 30 mg PO .6XD PRN 01/04/17 [Last Taken 07/04/18] Diazepam [Valium 2 MG (*)] 1 mg PO BID 02/04/18 [Last Taken 07/04/18] Estradiol [Estraderm 0.1 MG (RX)] 0.1 mg TD FR 02/04/18 [Last Taken 07/04/18] Famotidine [Pepcid 20 MG (*)] 20 mg PO DAILY 02/04/18 [Last Taken 07/04/18] Polyethylene Glycol 3350 [Miralax 17 gm (*)] 17 gm PO DAILY PRN 02/04/18 [Last Taken Unknown] fentaNYL [Duragesic 50 MCG Patch (*)] 50 mcg TD Q72H 02/04/18 [Last Taken ] Gabapentin [Neurontin 300 MG (*)] 300 mg PO BID 07/04/18 [Last Taken 07/04/18] Ipratropium/Albuterol [Duoneb (*)] 3 ml IH QID PRN 07/04/18 [Last Taken Unknown] Sennosides/Docusate Sodium [Senokot-S] 1 - 2 tab PO BID PRN 07/04/18 [Last Taken Unknown] Spironolactone [Aldactone 25 MG (*)] 25 mg PO DAILY 07/04/18 [Last Taken ] I have personally reviewed and updated: family history, medical history, social history, surgical history - Past Medical History asthma, fibromyalgia Additional medical history: fibromyalgia/chronic pain, chronic opioid dependency , COPD, h/o R MCA aneurysm s/p clipping (2007), h/o subdural hematoma after fall (2017), substance abuse (cocaine), HTN - Surgical History Additional surgical history: R MCA aneurysm clipping - Family History Additional family history: unknown - Social History Smoking Status: Heavy smoker Alcohol Use: Rarely Drug Use: Cocaine (intranasal) Review of Systems Review of Systems: ROS: 10pt was reviewed & negative except for what was stated in HPI & below Physical Exam Physical Exam: Temp Pulse Resp BP Pulse Ox 36.3 C 78 18 124/88 H 97 07/04/18 20:55 07/04/18 20:55 07/04/18 20:55 07/04/18 20:55 07/04/18 20:55 Constitutional: no apparent distress, appears nourished, not in pain Eyes: PERRL, anicteric sclera, EOMI Ears, Nose, Mouth, Throat: moist mucous membranes, hearing normal, ears appear normal, no oral mucosal ulcers, other (poor dentition) Cardiovascular: regular rate and rhythym, no murmur, rub, or gallop, No edema Respiratory: no respiratory distress, no rales or rhonchi, clear to auscultation Gastrointestinal: normoactive bowel sounds, soft, non-tender abdomen, no palpable masses Genitourinary: no bladder fullness, no bladder tenderness Skin: warm, erythema (medial right foot spreading up to ankle/glez), other ( onychomycosis on left toes) Musculoskeletal: full muscle strength, no muscle tenderness, normal joint ROM, no joint effusions Neurologic: AAOx3 Psychiatric: not encephalopathic, anxious Lab Data & Imaging Review 07/04/18 18:46 12 18:46 WBC 11.99 10^3/uL (3.80-9.50) H 07/04/18 18:46 RBC 3.88 10^6/uL (4.18-5.33) L 07/04/18 18:46 Hgb 12.2 g/dL (12.6-16.3) L 07/04/18 18:46 Hct 35.3 % (38.0-47.0) L 07/04/18 18:46 MCV 91.0 fL (81.5-99.8) 07/04/18 18:46 MCH 31.4 pg (27.9-34.1) 07/04/18 18:46 MCHC 34.6 g/dL (32.4-36.7) 07/04/18 18:46 RDW 12.2 % (11.5-15.2) 07/04/18 18:46 Plt Count 395 10^3/uL (150-400) 07/04/18 18:46 MPV 8.4 fL (8.7-11.7) L 07/04/18 18:46 Neut % (Auto) 73.7 % (39.3-74.2) 07/04/18 18:46 Lymph % (Auto) 19.2 % (15.0-45.0) 07/04/18 18:46 [place] % (Auto) 5.9 % (4.5-13.0) 07/04/18 18:46 Eos % (Auto) 0.4 % (0.6-7.6) L 07/04/18 18:46 Baso % (Auto) 0.4 % (0.3-1.7) 07/04/18 18:46 Nucleat RBC Rel Count 0.0 % (0.0-0.2) 07/04/18 18:46 Absolute Neuts (auto) 8.83 10^3/uL (1.70-6.50) H 07/04/18 18:46 Absolute Lymphs (auto) 2.30 10^3/uL (1.00-3.00) 07/04/18 18:46 Absolute Monos (auto) 0.71 10^3/uL (0.30-0.80) 07/04/18 18:46 Absolute Eos (auto) 0.05 10^3/uL (0.03-0.40) 07/04/18 18:46 Absolute Basos (auto) 0.05 10^3/uL (0.02-0.10) 07/04/18 18:46 Absolute Nucleated RBC 0.00 10^3/uL (0-0.01) 07/04/18 18:46 Immature Gran % 0.4 % (0.0-1.1) 07/04/18 18:46 Immature Gran # 0.05 10^3/uL (0.00-0.10) 07/04/18 18:46 VBG Lactic Acid 1.2 mmol/L (0.7-2.1) 07/04/18 18:46 Sodium 124 mEq/L (135-145) L 07/04/18 18:46 Potassium 3.7 mEq/L (3.5-5.2) 07/04/18 18:46 Chloride 90 mEq/L (97-110) L 07/04/18 18:46 Carbon Dioxide 23 mEq/l (22-31) 07/04/18 18:46 Anion Gap 11 mEq/L (6-14) 07/04/18 18:46 BUN 7 mg/dL (7-23) 07/04/18 18:46 Creatinine 0.6 mg/dL (0.6-1.0) 07/04/18 18:46 Estimated GFR > 60 07/04/18 18:46 Glucose 119 mg/dL (70-100) H 07/04/18 18:46 Calcium 9.1 mg/dL (8.5-10.4) 07/04/18 18:46 Assessment & Plan Assessment: 67yo F with chronic opioid dependency who was diagnosed with Pseudomonas osteomyelitis of right foot on 06/26 presents for treatment. Plan: 1. Right 1st metatarsal osteomyelitis: Not septic. - ID consulted in ED (Dr Burnett) - ED physician also discussed with Dr Caballero of surgery as will likely require I&D/debridement - Zosyn 3.375mg q6h - Blood cultures - Follow inflammatory markers 2. Hyponatremia: May be SIADH related to infection/pain. - Check urine studies - Hold on further intervention (ie fluids, fluid restriction) until above returns 3. Normocytic anemia: Likely due to chronic inflammation. - Check iron studies 4. Chronic opioid dependency: Continue home meds (fentanyl patch, oxycodone). 5. COPD: No acute exacerbation. On room air. Home inhalers. 6. HTN: BP ok. Continue home spironolactone. VTE ppx: LMWH Code: full Diet: NPO at midnight Dispo: Admit as inpatient, will require >2 midnights of IV antibiotics
[2018-07-04] MEDS: fentaNYL 50 MCG PATCH TD SCH (21:49)
[2018-07-04] MEDS: DIAZEPAM 2 MG TAB PO SCH (21:50)
[2018-07-04] MEDS: SENNOSIDES/DOCUSATE SODIUM TAB PO PRN (21:50)
[2018-07-05] MEDS: HYDROmorphONE/DILAUDID 1 MG/ML INJ IVP PRN ×2 (01:26→06:06)
[2018-07-05] MEDS: PIPERACILLIN/TAZO 3.375 GM/DEX 50 ML IV SCH ×3 (01:27→12:20)
[2018-07-05] MEDS ORDERED: CYCLOBENZAPRINE 10 MG TAB PO PRN (02:55)
[2018-07-05] MEDS: ENOXAPARIN 40 MG/0.4 ML SYR SC SCH (08:07)
[2018-07-05] MEDS ORDERED: SPIRONOLACTONE 25 MG TAB PO SCH (09:00)
--- NOTE | 2018-07-05 09:35 | PDMN ---
Medical Necessity Medical necessity: Pt meets inpt criteria per MD order and MCG M-600, Osteomyelitis, 3 days. 67 y/o w/hx chronic opioid dependency admitted w/R 1st metatarsal osteomyelitis w/increasing redness (spreading up R glez), swelling, and pain in R foot, fevers/chills/nausea. ID consulted- IV ABX's, bl cultures pending, Surg consulted- NPO as pt will likely require I&D. Hyponatremic w/Na of 124, other PMH includes COPD, fibromyalgia, asthma. anticipate>2MN for ongoing eval/management of above.
[2018-07-05] MEDS: FAMOTIDINE 20 MG TAB PO SCH (09:52)
[2018-07-05] MEDS: GABAPENTIN 300 MG CAP PO SCH ×2 (09:52→20:59)
[2018-07-05] MEDS: DIAZEPAM 2 MG TAB PO SCH ×2 (09:53→20:59)
[2018-07-05 10:10] LABS: PLATELET COUNT 296 10^3/uL (150-400)
--- NOTE | 2018-07-05 10:13 | SOAPPROG ---
SOAP Progress Note Assessment/Plan: Assessment: Will dictate consult 1) She was unaware that abx would not cure osteo and so this is very overwhelming - I explained that her conditioned has worsened 2) established relationship with Dr. Hooks who recommended plating, cast and SNF 3) Refuses surgery because does not want to be away from her cats for 5 weeks 4) I discussed case with Dr. Lei who will see later 5) May eat as does not want surgery I am not going to follow as she already has an established relationship with ortho - Plan: 07/05/18 10:11 Objective: Vital Signs Temp Pulse Resp BP Pulse Ox 36.7 C 92 16 99/65 L 74 L 07/05/18 07:15 07/05/18 07:15 07/05/18 07:15 07/05/18 09:53 07/05/18 07:15 Laboratory Results 07/05/18 09:19 07/04/18 07/05/18 07/06/18 05:59 05:59 05:59 Intake Total 350 Output Total 300 100 Balance 50 -100 ICD10 Worksheet Patient Problems: Problems Problem Status Onset Hyponatremia Acute Osteomyelitis Acute COPD (chronic obstructive pulmonary disease) Acute Chronic pain Acute Closed head injury Acute Concussion Acute Congestive heart failure Acute Femoral hernia of right side Acute Fibromyalgia Acute Hypoxemia Acute Respiratory failure Acute SDH (subdural hematoma) Acute
--- NOTE | 2018-07-05 10:22 | HOSPPROG ---
Hospitalist Progress Note Assessment/Plan: 67yo F with chronic opioid dependency who was diagnosed with Pseudomonas osteomyelitis of right foot on 06/26 presents for treatment. 1. Right 1st metatarsal osteomyelitis: Not septic. - ID consulted, continue IV zosyn 3.375mg q6h - Discussed with Dr Caballero. Will require surgical intervention but patient is refusing at present. She has previously established with ortho (Dr Hooks); Dr Lei has been consulted and will see. If not amenable to surgery, would plan for course of IV antibiotics (likely 6 weeks) with ongoing suppressive antibiotics thereafter - Follow blood cultures 2. Hyponatremia: Consistent with SIADH - Fluid restriction (1.5L), recheck Na this PM to ensure not correcting too rapidly (goal Na 130 by this evening) 3. Normocytic anemia: Likely due to chronic inflammation. - Iron studies pending 4. Chronic pain w/opioid dependency: Continue home meds (fentanyl patch, oxycodone, gabapentin, valium). 5. COPD: No acute exacerbation. On room air. Home inhalers. 6. HTN: BP ok. Continue home spironolactone. VTE ppx: LMWH Code: full Diet: regular Dispo: Continue inpatient for IV antibiotics Subjective: Lots of pain all over, sleepy from pain meds she just received. Overwhelmed that she will require surgery. She is refusing, doesn't want to leave cats. Objective: Vital Signs Temp Pulse Resp BP Pulse Ox 36.7 C 92 16 99/65 L 74 L 07/05/18 07:15 07/05/18 07:15 07/05/18 07:15 07/05/18 09:53 07/05/18 07:15 Laboratory Results 07/05/18 09:19 07/05/18 09:19 07/04/18 07/05/18 07/06/18 05:59 05:59 05:59 Intake Total 350 Output Total 300 100 Balance 50 -100 - Physical Exam Constitutional: no apparent distress, other (thin) Eyes: PERRL, anicteric sclera, EOMI Ears, Nose, Mouth, Throat: moist mucous membranes, hearing normal, ears appear normal, no oral mucosal ulcers Cardiovascular: regular rate and rhythym, no murmur, rub, or gallop, edema ( trace in RLE) Respiratory: no respiratory distress, no rales or rhonchi, clear to auscultation Gastrointestinal: normoactive bowel sounds, soft, non-tender abdomen, no palpable masses Genitourinary: no bladder fullness, no bladder tenderness, no renal bruits Skin: erythema (improved in right foot/lower leg) Musculoskeletal: full muscle strength, no muscle tenderness, normal joint ROM Neurologic: AAOx3, sensation intact bilaterally Psychiatric: interacting appropriately, not anxious, not encephalopathic, thought process linear ICD10 Worksheet Patient Problems: Problems Problem Status Onset Hyponatremia Acute Osteomyelitis Acute COPD (chronic obstructive pulmonary disease) Acute Chronic pain Acute Closed head injury Acute Concussion Acute Congestive heart failure Acute Femoral hernia of right side Acute Fibromyalgia Acute Hypoxemia Acute Respiratory failure Acute SDH (subdural hematoma) Acute
--- NOTE | 2018-07-05 14:34 | GCON ---
DATE OF CONSULTATION: 07/05/2018 CHIEF COMPLAINT: Osteomyelitis, right metatarsal and cuneiform. HISTORY OF PRESENT ILLNESS: The patient is a 67-year-old woman who has been followed by Dr. Hooks. He had initially recommended some surgery for her foot. She declined surgical intervention. She was also seen at the [facility] healing center. She presented to the emergency room June 26 and at that time was recommended to have admission, but she declined due to needing care for her cats. On the , osteomyelitis of the right foot was documented on both plain x-ray and MRI. It was most prominent at the 1st metatarsal cuneiform as well as some edema on the 2nd metatarsal cuneiform. Culture was taken and it grew pseudomonas. She returned to the ER due to spreading of the erythema. She has received Zosyn. PAST MEDICAL HISTORY: Includes benzodiazepine and opioid dependence, reactive airway disease, history of subdural hematoma after fall, hypertension. PAST SURGICAL HISTORY: Right MCA aneurysm clipping. FAMILY HISTORY: Not obtained. SOCIAL HISTORY: She does use tobacco. REVIEW OF SYSTEMS: No recent fever. PHYSICAL EXAM: GENERAL: Lying in bed sleeping soundly. Did not arise to the voice. She did awake to touch. HEENT: Normocephalic. No gross hearing deficits. Mucous membranes moist. Pupils equal and round. LUNGS: Clear to auscultation bilaterally. No increased work of breathing. CARDIAC: Regular rate. MUSCULOSKELETAL: Showed tenderness in her right foot. Charcot deformity. SKIN: On the bottom of her right foot, there is an unstageable ulcer. PSYCH: Distressed by news. RESULTS REVIEWED: I personally reviewed the results of her MRI and see evidence of charcot and osteomylitis. Her white count was elevated at 12,000 on admission and is normal today. IMPRESSION AND PLAN: 67-year-old woman who is a tobacco user, history of opioid and benzodiazepine dependence, chronic pain with osteomyelitis. She was quite distressed when I told her that I recommended surgery. She believed that intravenous antibiotics would be curative. I also learned that she has an established relationship with Dr. Hooks. The patient specifically said that she did not want surgery as she needed someone to take care of her cats. We had a discussion that if she declined surgery I advised her to think about advanced care planning for her cats as she may not be equipped to care for them in the future. I have reached out to Dr. Lei who will see her at a later time to also discuss potential options for intervention. I will sign off at this time. She can have a general diet. Other issues such as her reactive airway disease, hyponatremia per hospitalist. /[id number]/MODL MTDD
[2018-07-05] MEDS: oxyCODONE IR 5 MG TAB PO PRN ×3 (15:07→23:43)
[2018-07-05] MEDS: CYCLOBENZAPRINE 10 MG TAB PO PRN ×3 (15:08→23:45)
--- NOTE | 2018-07-05 16:09 | GCON ---
INFECTIOUS DISEASE CONSULT DATE OF CONSULTATION: 07/05/2018 REFERRING PHYSICIAN: Julio Hernandez MD REASON FOR CONSULT: Assist in the management of this 67-year-old female with right lower extremity osteomyelitis and cellulitis. HISTORY OF PRESENT ILLNESS: The patient is a 67-year-old female whose previous medical history is notable for the followin. Fibromyalgia. 2. Chronic pain syndrome. 3. Asthma. 4. Chronic opioid dependency. 5. History of right MCA aneurysm, status post clipping in 2007. 6. History of subdural hematoma after a fall in 2016. 7. History of cocaine abuse in the distant past. 8. Tobacco use disorder. 9. Hypertension. Regarding her present issues, the patient has apparently had a small opening in the plantar aspect of her right foot for quite some time. She came to the emergency room on June 26, where a swab of the ulceration showed 1+ gram- positive cocci, no PMNs, and rare Pseudomonas aeruginosa. The patient refused hospital admission at the time, as she was concerned about who would care for her cats. She re-presented yesterday, as the people who could care for her cats returned from a camping trip, so she felt comfortable coming to the ED. In the emergency room, the patient clearly had a right lower extremity cellulitis. Of note, an MRI was performed that was compared to February 2018 and revealed worsening osteomyelitis of the 1st cuneiform metatarsal articulation with progressive osseous erosion of the joint and a joint effusion. She also had surrounding myositis and cellulitis. Milder bone marrow edema in the 2nd cuneiform and 2nd metatarsal could be reactive osteitis or early osteomyelitis. Again, the patient refused hospital admission. The patient re-presented on July 04, as the persons who could care for her cats returned from their camping trip and she felt comfortable coming to the emergency room. In the emergency room, she was found to have a right lower extremity cellulitis, as well as the ongoing ulceration in the plantar aspect of her foot. She was started on Zosyn, and I am now asked to assist in her management. In speaking with the patient today, she is not in the best of moods. She does not understand why surgery would be recommended. She states she has walked around barefoot in her home and cannot recall her last tetanus booster. PREVIOUS MEDICAL HISTORY: As outlined above. ALLERGIES: No known drug allergies. SOCIAL HISTORY: The patient lives by herself in [place] with her 2 cats. She smokes 1-3 cigarettes per day. She denies alcohol or illicit substances presently. 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 No water exposure other than her bathtub. REVIEW OF SYSTEMS: Notable for chronic pain, particularly in the lesion on her left hand dorsum and her entire body. She also says her right foot is particularly painful. She denies any fevers or shaking chills. She also has noted some redness in the right lower extremity. She says this is improved today with antibiotics. No diarrhea. Otherwise, 10 systems reviewed and are negative. FAMILY HISTORY: Noncontributory. PHYSICAL EXAM: VITAL SIGNS: T-current 36.6, T-max 36.7, heart rate 68, blood pressure 79/49, 86% on room air. GENERAL: Cachectic female, appears older than stated age, in bed, very tangential. Her hair is dyed orange. HEENT: Atraumatic, normocephalic. Pupils equal, round, reactive to light. Extraocular movements are intact. No conjunctival injection. No icterus or petechiae. Mucous membranes are moist. False upper teeth. Lower teeth are in terrible repair. Trachea is midline. No supraclavicular lymphadenopathy. CARDIOVASCULAR: S1, S2. 2/6 systolic ejection murmur heard best left to right upper sternal border and left lower sternal border. LUNGS: Clear to auscultation bilaterally. No rales, rhonchi, or wheeze. ABDOMEN: Slightly protuberant and soft. EXTREMITIES: The patient has a Charcot foot on the right with a small, less than dime-sized ulceration that is dry in the mid- foot. This is not actively draining, but there is some surrounding pinkish erythema that extends up her leg circumferentially. This has improved. There is also some associated warmth. The patient has severe onychomycosis bilaterally of her toenails, and the toes of her left foot are notable for severe callusing. NEUROLOGIC: She is alert and oriented x3. LABORATORY DATA: Microbiologic data: Foot swab June 26: Pseudomonas aeruginosa. Blood cultures x2 are pending. Blood cultures from 06/26 showed no growth. White blood cell count of 5.9, down from 11.9 on admission, hematocrit 28, platelet count of 296. BUN and creatinine 9/0.6. C-reactive protein 33. RADIOGRAPHIC DATA: As outlined above. IMPRESSION: 67-year-old female with multiple medical problems, admitted with osteomyelitis in her right foot with concomitant cellulitis. Previous foot swab grew Pseudomonas, and although this was a swab specimen, cannot ignore this pathogen. Agree that best outcome includes both a medical and surgical approach. I tried to explain this to the patient today, and she was adamant about not wanting surgery. That being said, I am also concerned about her ability to tolerate 6 weeks of antibiotics through a PICC line by herself at home moving forward--she would likely require a SNF which she would also decline. PLAN: 1. Continue Zosyn; agree with dose escalation to 4.5 g IV q.6 hours in the setting of known Pseudomonas aeruginosa. 2. Blood cultures are pending. 3. Dr. Lei to see the patient later today to discuss surgical options with her. Thank you very much for consulting Infectious Disease. We will continue to follow this patient with you. /[id number]/MODL MTDD
[2018-07-05] MEDS: D5W 1,000 ML IV SCH (17:58)
[2018-07-05] MEDS: PIPERACILLIN/TAZO 4.5 GM/DEX 100 ML IV SCH ×2 (17:59→23:43)
--- NOTE | 2018-07-05 21:21 | GCON ---
DATE OF CONSULTATION: 07/05/2018 REASON FOR CONSULTATION: Right foot infection. HISTORY RELATIVE TO CONSULTATION: The patient is a 67-year-old with a history of neuropathy of unkno wn etiology with progressive foot swelling and plantar medial ulceration. She states that for a numb er of years she has been "providing the medical care" for her foot. She additionally states that she has a custom brace which sounds similar to a Charcot-relieving orthotic walker, but she has not been utilizing as she has difficulty with its application. She has been started on IV antibiotics and lazo s had some improvement in her erythema and swelling. PHYSICAL EXAMINATION: EXTREMITIES: She has clinical evidence of a "rocker bottom" foot with a break in her medial arch. She has diminished sensation in a stocking-glove distribution. There is approx imately 1 cm ulceration on the plantar medial aspect of her foot. Currently, there is no evidence of purulence or discharge. There is some surrounding erythema. There is no evidence of fluctuance. IMAGING: Nonweightbearing radiographs of her foot show evidence of a Charcot arthropathy through her midfoot with dorsal lateral collapse through her tarsal metatarsal articulations. MRI shows evidenc e of increased signal in this area. ASSESSMENT: 1. Right Charcot midfoot. 2. Right neuropathic plantar foot ulcer. PLAN: I spoke with the patient in detail for her condition for over 30 minutes delineating her care options. I informed her and she acknowledged that left untreated there is a significant risk of prog ressive infection and collapse necessitating a below-knee amputation. She is not interested in opera tive treatment at this point in time. Toward this end, her best chance for resolution with non opera tive treatment includes appropriate course of IV antibiotics under the direction of the infectious [facility] doctors and use of her Charcot-relieving orthotic walker. If osteomyelitis is truly present, t his is unlikely to be successful. If ulceration persists or recurs and surgery were to be considered , corrected midfoot arthrodesis and gastrocnemius or Achilles lengthening would be necessary followin g a thorough debridement of any potentially infected bone. She acknowledges that without using an ap propriate orthotic walking boot, her risk of amputation is significantly increased in that a shoe in and of itself is not adequate. /[id number]/MODL
[2018-07-06] MEDS: CYCLOBENZAPRINE 10 MG TAB PO PRN ×2 (03:48→21:19)
[2018-07-06] MEDS: oxyCODONE IR 5 MG TAB PO PRN ×4 (03:49→21:17)
[2018-07-06] MEDS: PIPERACILLIN/TAZO 4.5 GM/DEX 100 ML IV SCH ×3 (05:00→17:41)
[2018-07-06] MEDS: D5W 1,000 ML IV SCH (05:16)
[2018-07-06] MEDS: SENNOSIDES/DOCUSATE SODIUM TAB PO PRN ×2 (06:11→21:19)
[2018-07-06] MEDS: GABAPENTIN 300 MG CAP PO SCH ×2 (09:08→21:19)
[2018-07-06] MEDS: DIAZEPAM 2 MG TAB PO SCH ×2 (09:08→21:19)
[2018-07-06] MEDS: FAMOTIDINE 20 MG TAB PO SCH (09:09)
[2018-07-06] MEDS: ENOXAPARIN 40 MG/0.4 ML SYR SC SCH (09:09)
[2018-07-06] MEDS: NICOTINE 14 MG/24 HR PATCH TD SCH (09:10)
[2018-07-06] MEDS ORDERED: ALTEPLASE 2 MG VIAL IVP PRN (12:21)
--- NOTE | 2018-07-06 12:24 | PCMIDPN ---
Assessment/Plan: 1. Right foot osteomyelitis secondary to Pseudomonas: Patient refusing any debridement. Is willing to get a PICC line and 6 weeks of IV antibiotics. States that she already has a home health nurse coming out to her house 3 times per week. Have asked our case management to corroborate that. Will order a PICC line, and see if we can get Zosyn via continuous infusion. Subjective: Tangential, grumpy. Talked to her about 6 weeks of IV antibiotics, which he is willing to proceed with. Tells me she already has a home health nurse coming to her house 3 times per week through [facility]. Objective: Zosyn 4.5 g IV q.6 hours day 2 No fevers Vital Signs Temp Pulse Resp BP Pulse Ox 36.9 C 65 14 98/65 L 95 07/06/18 08:52 07/06/18 08:52 07/06/18 08:52 07/06/18 08:52 07/06/18 08:52 Laboratory Results 07/06/18 06:45 07/06/18 06:45 07/05/18 07/06/18 07/07/18 05:59 05:59 05:59 Intake Total 350 1450 480 Output Total 300 1750 1100 Balance 50 -300 -620 ESR 13 MM/HR (0-30) 07/05/18 09:19 C-Reactive Protein 32.9 mg/L (<10.0) H 07/05/18 09:19 Blood cultures negative - Physical Exam General Appearance: no apparent distress, cachetic Extremities: other (Cellulitis right lower extremity has improved) ICD10 Worksheet Patient Problems: Problems Problem Status Onset Hyponatremia Acute Osteomyelitis Acute COPD (chronic obstructive pulmonary disease) Acute Chronic pain Acute Closed head injury Acute Concussion Acute Congestive heart failure Acute Femoral hernia of right side Acute Fibromyalgia Acute Hypoxemia Acute Respiratory failure Acute SDH (subdural hematoma) Acute
--- NOTE | 2018-07-06 12:56 | ASMTCMCOM ---
CM Note CM Note Notes: Patient plan of care reviewed in rounds. 67 year old female with osteomylitis of her right foot refusing surgical interventions. Has cats at home who she is concerned about. [facility] was providing HHC and referral placed. She will require PICC placement and penitentiary antibiotics. Referrals in allscripts to HHC and Home infusion [facility]. CM to follow. Plan: To dc to home with HHC and [facility] infusion. Date Signed: 07/06/2018 12:55 PM Electronically Signed By:Veronica Ortega RN
[2018-07-06] MEDS ORDERED: MAGNESIUM HYDROXIDE 30 ML UDCUP PO PRN (13:41)
[2018-07-06] MEDS ORDERED: BISACODYL 10 MG SUPP PR PRN (13:41)
--- NOTE | 2018-07-06 15:57 | HOSPPROG ---
Hospitalist Progress Note Assessment/Plan: 67yo F with chronic opioid dependency who was diagnosed with Pseudomonas osteomyelitis of right foot on 06/26 presents for treatment. 1. Right 1st metatarsal Pseudomonas osteomyelitis: Not septic. - ID consulted, continue IV zosyn 4.5mg q6h - Patient refusing surgery - Plan for PICC placement, will need to complete 6 weeks of IV antibiotics per ID recs. Needs orthotic walking boot - PT 2. Hyponatremia: Consistent with SIADH - Discontinue D5W - Continue fluid restriction, recheck Na in AM, goal mid 130s 3. Normocytic anemia: Likely due to chronic inflammation. Not iron deficient. H/ H stable. Monitor daily. 4. Chronic pain w/opioid dependency: Continue home meds (fentanyl patch, oxycodone, gabapentin, valium). 5. COPD: No acute exacerbation. On room air. Home inhalers. 6. HTN: BP ok. Continue home spironolactone. VTE ppx: LMWH Code: full Diet: regular Dispo: Continue inpatient for IV antibiotics, ADD unclear at this time Subjective: In pain all over. No fevers. Foot is feeling about the same. Objective: Vital Signs Temp Pulse Resp BP Pulse Ox 37.0 C 68 16 105/64 91 L 07/06/18 12:38 07/06/18 12:38 07/06/18 12:38 07/06/18 12:38 07/06/18 12:38 Laboratory Results 07/06/18 06:45 07/06/18 06:45 07/05/18 07/06/18 07/07/18 05:59 05:59 05:59 Intake Total 350 1450 1439 Output Total 300 1750 1100 Balance 50 -300 339 - Physical Exam Constitutional: no apparent distress, other (thin) Eyes: PERRL, anicteric sclera, EOMI Ears, Nose, Mouth, Throat: moist mucous membranes, hearing normal, ears appear normal, no oral mucosal ulcers Cardiovascular: regular rate and rhythym, no murmur, rub, or gallop Respiratory: no respiratory distress, no rales or rhonchi, clear to auscultation Gastrointestinal: normoactive bowel sounds, soft, non-tender abdomen, no palpable masses Genitourinary: no bladder fullness, no bladder tenderness, no renal bruits Skin: erythema (improved in RLE, still with charcot deformity in right midfoot) Musculoskeletal: full muscle strength Neurologic: AAOx3, sensation intact bilaterally Psychiatric: other (tangential, agitated) ICD10 Worksheet Patient Problems: Problems Problem Status Onset Hyponatremia Acute Osteomyelitis Acute COPD (chronic obstructive pulmonary disease) Acute Chronic pain Acute Closed head injury Acute Concussion Acute Congestive heart failure Acute Femoral hernia of right side Acute Fibromyalgia Acute Hypoxemia Acute Respiratory failure Acute SDH (subdural hematoma) Acute
[2018-07-06] MEDS: HYDROmorphONE/DILAUDID 1 MG/ML INJ IVP PRN (16:36)
[2018-07-06] MEDS: ACETAMINOPHEN 325 MG TAB PO PRN (21:20)
[2018-07-07] MEDS: HYDROmorphONE/DILAUDID 1 MG/ML INJ IVP PRN ×5 (00:07→20:41)
[2018-07-07] MEDS: PIPERACILLIN/TAZO 4.5 GM/DEX 100 ML IV SCH ×4 (00:09→17:27)
[2018-07-07] MEDS: oxyCODONE IR 5 MG TAB PO PRN ×5 (01:17→18:53)
[2018-07-07] MEDS: DIAZEPAM 2 MG TAB PO SCH ×2 (09:35→22:11)
[2018-07-07] MEDS: SENNOSIDES/DOCUSATE SODIUM TAB PO PRN (09:36)
[2018-07-07] MEDS: GABAPENTIN 300 MG CAP PO SCH ×2 (09:36→20:42)
[2018-07-07] MEDS: FAMOTIDINE 20 MG TAB PO SCH (09:36)
[2018-07-07] MEDS: NICOTINE 14 MG/24 HR PATCH TD SCH (09:37)
[2018-07-07] MEDS: ENOXAPARIN 40 MG/0.4 ML SYR SC SCH (09:50)
--- NOTE | 2018-07-07 14:06 | WOCRNPDOC ---
WOCRN Advanced Assessment Note - Skin Integrity Problem, Advanced Assess Right Foot Dressing Type: Open to Air Maya Wound Tissue: Calloused Wound Bed Constitution: Stable Eschar Site Measurement - Head-to-Toe Length X Width X Depth (cm): [id number] Skin Integrity Problem Comment: Neuropathic changes/charcot foot. Wound needs surgcial management rather than local wound care. Discussed appropriate footwear needs. Patient wants a pad for wound: may cover with plain border foam dressing. Toni BORREGO in room for care. Right Dorsal Second Finger Dressing Type: Tegaderm Film Exudate Amount: None Integumentary Issue Intervention: Dressing Removed Maya Wound Tissue: Erythema (mild maya wound only), Macerated Wound Bed Color: Yellow Wound Bed Constitution: Adhered Slough (100%) Wound Edges: Not Attached Site Measurement - Head-to-Toe Length X Width X Depth (cm): 1x0.5x0.2 Skin Integrity Problem Comment: Autolytic debridement will be initated with honey and hydrocolloid to remove necrosis. Left Hand Dressing Type: Tegaderm Film Dressing Description: Clean/Dry, Intact Exudate Amount: None Wound Bed Constitution: Granulation Tissue (80% in Thumb wound/30% in posterior medial hand wound), Adhered Slough (60% in posterior medial hand wound) Site Measurement - Head-to-Toe Length X Width X Depth (cm): Posterior medial hand: 0.9x0.6x0.3, Thumb (lateral hand): 1x0.5x0.2 Skin Integrity Problem Comment: Two seperate wounds on left hand. Per patient's report they "just open up". She has been using bacitracin and hydrocortisone cream on them with little success. Discussed need for a clean wound bed and will initiate honey dressings to try and autolytically debride them. Patient in accord. Left Toe Dressing Type: Open to Air Skin Integrity Problem Comment: Dried exudate wounds on distal first and second toes. Patient reports having a fungal infection a year ago that resulted in these dried areas. Would like wound care to cut off the dried stuff. It would be best to leave these wounds dry rather than moistening them.
--- NOTE | 2018-07-07 14:33 | PCMIDPN ---
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 Patient with evidence of osteomyelitis from MRI on 06/26. Discussion with her regular foot doctor, Quinton Hooks today. He will be by later to discuss operative options with the patient. To this point she has been relatively resistant to debridement consideration. I feel that it is unlikely to be successfully treated if there is not a surgical component. Meanwhile continue IV Zosyn. Plan: 1. Continue IV Zosyn at present dose. 2. Obtain podiatry consult from Dr. Hooks. 07/07/18 16:49 Subjective: Pt has reservations about debridement as she is under the impression that it will cause her to have her foot amputated. She requests that I speak with her information technology teacher Dr. Hooks and notes that she liked the way Dr. Lei communicated. I, Estee Barnes, am scribing for, and in the presence of, José Beckman MD. José Jaramillo MD, personally performed the services described in this documentation, as scribed by Estee Barnes in my presence, and it is both accurate and complete. Objective: Vital Signs Temp Pulse Resp BP Pulse Ox 36.4 C 62 19 109/84 H 93 07/07/18 11:13 07/07/18 07:18 07/07/18 07:18 07/07/18 07:18 07/07/18 07:18 Laboratory Results 07/07/18 06:45 07/07/18 06:45 07/06/18 07/07/18 07/08/18 05:59 05:59 05:59 Intake Total 1450 1944 Output Total 1750 1100 1000 Balance -300 844 -1000 ESR 13 MM/HR (0-30) 07/05/18 09:19 C-Reactive Protein 32.9 mg/L (<10.0) H 07/05/18 09:19 07/04/18 Blood cx (2) NGTD. Imaging studies: 06/26/18 MRI R-foot without and with contrast impression: Worsening osteomyelitis at the 1st cuneiform metatarsal articulation, with progressive osseous erosion at the joint, with a joint effusion and fluid extension from the joint effusion dorsally and plantar aspect. Surrounding myositis and cellulitis. Milder bone marrow edema in the 2nd cuneiform and 2nd metatarsal, which could be reactive osteitis or early osteomyelitis, without erosive change. - Physical Exam General Appearance: alert, no apparent distress, cachetic Extremities: other (Right Charcot deformity with chronic plantar ulcer just proximal to MTP joint, no surrounding erythema, mildly tender to palpation, no active purulence.) Skin: No rash Neuro/Psych: oriented x 3 - Line/s RUE PICC Lines: No drainage, No erythema ICD10 Worksheet Patient Problems: Problems Problem Status Onset Hyponatremia Acute Osteomyelitis Acute COPD (chronic obstructive pulmonary disease) Acute Chronic pain Acute Closed head injury Acute Concussion Acute Congestive heart failure Acute Femoral hernia of right side Acute Fibromyalgia Acute Hypoxemia Acute Respiratory failure Acute SDH (subdural hematoma) Acute
--- NOTE | 2018-07-07 15:56 | ASMTCMCOM ---
CM Note CM Note Notes: Patient discussed during medical rounds. PICC has been placed. Patient is active with [facility], Arti with [facility] met with patient today and will be able to start with patient when ready for IV antibiotics. Physical Therapy pending recommendations. Wound care to consult. October with [facility] and AMBER Marquez with [facility] met with patient today & have worked with the patient closely for a while. They shared the patients disinterest with SNF placement and refusal of surgical intervention as the patient is focused amputation. They also called Compliance Analyst with the patient for the foot orthotic fitting, Compliance Analyst will attempt to meet with patient today and may be able to return with brace on Saturday. Nora also mentioned she left a referral for CHARLES Mast CM, with a goal of a face to face visit to connect with [facility] prior to discharge. CM send an email referral to [facility] APRIL. Nora Haney RN can be reached at [phone] to support ongoing needs. APRIL attempted to meet with patient, she was meeting with a medical provider discussing surgical options. D/C Plan: [facility] with [facility] for IV antibiotics Date Signed: 07/07/2018 03:56 PM Electronically Signed By:Antonina Rice
--- NOTE | 2018-07-07 16:21 | SOAPPROG ---
SOAP Progress Note Assessment/Plan: Assessment: R foot osteomylitis and charcot collapse Plan: I discussed her infection and the underlyling charcot deformity and nueropathy driving her symptoms. I feel her infection will likely progress with IV abx alone. I disscused and I and D with midfoot osteotomy and fusion with DEISY in a staged manner. We also discussed a midfoot amputation. She is refusing an amputation in any form at this time. She is refusing surgery this week and states she needs to go home. She would like to pursue surgery next week. I will set her up saturday 07/15 for and I and D and correcting osteotomy. Then in a stage manner fuse her midfoot with internal fixation. She would need IV antibiotics for this as well. We will work on making tentative surgical arrangements in accordance with her wishes 07/07/18 16:12 Subjective: pain in right foot Objective: Vital Signs Temp Pulse Resp BP Pulse Ox 36.6 C 72 16 111/73 95 07/07/18 15:15 07/07/18 15:15 07/07/18 15:15 07/07/18 15:15 07/07/18 15:15 Laboratory Results 07/07/18 06:45 07/07/18 06:45 07/06/18 07/07/18 07/08/18 05:59 05:59 05:59 Intake Total 1450 1944 Output Total 1750 1100 1000 Balance -300 844 -1000 right foot midfoot plantar ulcer larger than 2 months ago, no drainage severe rockerbottom, abducted foot deformity with equinuis contracture ICD10 Worksheet Patient Problems: Problems Problem Status Onset Hyponatremia Acute Osteomyelitis Acute COPD (chronic obstructive pulmonary disease) Acute Chronic pain Acute Closed head injury Acute Concussion Acute Congestive heart failure Acute Femoral hernia of right side Acute Fibromyalgia Acute Hypoxemia Acute Respiratory failure Acute SDH (subdural hematoma) Acute
[2018-07-07] MEDS: fentaNYL 50 MCG PATCH TD SCH (17:25)
--- NOTE | 2018-07-07 17:33 | HOSPPROG ---
Hospitalist Progress Note Assessment/Plan: 67yo F with chronic opioid dependency who was diagnosed with Pseudomonas osteomyelitis of right foot on 06/26 presents for treatment. 1. Right 1st metatarsal Pseudomonas osteomyelitis: Not septic. Underlying charcot deformity. - ID consulted, continue IV zosyn 4.5mg q6h, PICC in place - Patient now amenable to surgery with Dr Hooks, tentatively planning on 07/15 for I&D/osteotomy and staged fusion - PT 2. Hyponatremia: Improved. Consistent with SIADH - Discontinued D5W - Continue fluid restriction, recheck Na in AM, goal mid 130s 3. Normocytic anemia: Likely due to chronic inflammation. Not iron deficient. H/ H stable. Monitor daily. 4. Chronic pain w/opioid dependency: Continue home meds (fentanyl patch, oxycodone, gabapentin, valium). 5. COPD: No acute exacerbation. On room air. Home inhalers. 6. HTN: BP ok. Continue home spironolactone. VTE ppx: LMWH Code: full Diet: regular Dispo: Continue inpatient for IV antibiotics. Possibly dc in next day or so with plan to return for surgical procedure on 07/15. Will discuss with ID, podiatry, CM. Subjective: Foot hurts. Redness and swelling in right leg better. No fevers. Spoke with Dr Hooks, agrees to surgical intervention next week. Objective: Vital Signs Temp Pulse Resp BP Pulse Ox 36.6 C 72 16 111/73 95 07/07/18 15:15 07/07/18 15:15 07/07/18 15:15 07/07/18 15:15 07/07/18 15:15 Laboratory Results 07/07/18 06:45 07/07/18 06:45 07/06/18 07/07/18 07/08/18 05:59 05:59 05:59 Intake Total 1450 1944 Output Total 1750 1100 1000 Balance -300 844 -1000 - Physical Exam Constitutional: no apparent distress, other (frail) Eyes: PERRL, anicteric sclera, EOMI Ears, Nose, Mouth, Throat: moist mucous membranes, hearing normal, ears appear normal, no oral mucosal ulcers Cardiovascular: regular rate and rhythym, no murmur, rub, or gallop, No edema Respiratory: no respiratory distress, no rales or rhonchi, clear to auscultation Gastrointestinal: normoactive bowel sounds, soft, non-tender abdomen, no palpable masses Genitourinary: no bladder fullness, no bladder tenderness, no renal bruits Skin: erythema (improving in R foot) Musculoskeletal: full muscle strength, no muscle tenderness, normal joint ROM Neurologic: AAOx3, sensation intact bilaterally Psychiatric: other (tangential) ICD10 Worksheet Patient Problems: Problems Problem Status Onset Hyponatremia Acute Osteomyelitis Acute COPD (chronic obstructive pulmonary disease) Acute Chronic pain Acute Closed head injury Acute Concussion Acute Congestive heart failure Acute Femoral hernia of right side Acute Fibromyalgia Acute Hypoxemia Acute Respiratory failure Acute SDH (subdural hematoma) Acute
[2018-07-08] MEDS: PIPERACILLIN/TAZO 4.5 GM/DEX 100 ML IV SCH ×4 (00:01→18:42)
[2018-07-08] MEDS: oxyCODONE IR 5 MG TAB PO PRN ×5 (00:01→19:49)
[2018-07-08] MEDS: HYDROmorphONE/DILAUDID 1 MG/ML INJ IVP PRN ×5 (01:29→18:44)
[2018-07-08] MEDS: DIAZEPAM 2 MG TAB PO SCH ×2 (09:10→21:46)
[2018-07-08] MEDS: FAMOTIDINE 20 MG TAB PO SCH (09:11)
[2018-07-08] MEDS: NICOTINE 14 MG/24 HR PATCH TD SCH (09:11)
[2018-07-08] MEDS: GABAPENTIN 300 MG CAP PO SCH ×2 (09:11→21:46)
[2018-07-08] MEDS: ENOXAPARIN 40 MG/0.4 ML SYR SC SCH (09:12)
--- NOTE | 2018-07-08 09:21 | HOSPPROG ---
Hospitalist Progress Note Assessment/Plan: 67yo F with chronic opioid dependency who was diagnosed with Pseudomonas osteomyelitis of right foot on 06/26 presents for treatment. 1. Right 1st metatarsal Pseudomonas osteomyelitis: Not septic. Underlying charcot deformity. - ID consulted, continue IV zosyn 4.5mg q6h, PICC in place - Patient now amenable to surgery with Dr Hooks, tentatively planning on 07/15 for I&D/osteotomy and staged fusion - Discussed with ID. Plan to dc tomorrow (Wed) with continuous IV zosyn infusion and home care - Awaiting orthotic shoe, possibly will receive tomorrow 2. Hyponatremia: Stable. Consistent with SIADH - Recheck urine Na - Continue fluid restriction, monitor daily 3. Normocytic anemia: Likely due to chronic inflammation. Not iron deficient. H/ H stable. Monitor daily. 4. Chronic pain w/opioid dependency: Continue home meds (fentanyl patch, oxycodone, gabapentin, valium). 5. COPD: No acute exacerbation. On room air. Home inhalers. 6. HTN: BP ok. Continue home spironolactone. VTE ppx: LMWH Code: full Diet: regular Dispo: Continue inpatient for IV antibiotics. Possibly dc tomorrow with home IV antibiotics (patient refusing SNF) and awaiting orthotics. She will need to return 07/15 for surgery w/Dr Hooks Subjective: Became agitated when I suggested she need an orthotic shoe. Not willing to talk with me or let me examine her. Objective: Vital Signs Temp Pulse Resp BP Pulse Ox 36.5 C 73 16 124/88 H 91 L 07/08/18 05:58 07/08/18 08:47 07/08/18 08:47 07/08/18 08:47 07/08/18 08:47 Laboratory Results 07/08/18 05:47 07/08/18 05:47 07/07/18 07/08/18 07/09/18 05:59 05:59 05:59 Intake Total 194 980 Output Total 1100 1950 Balance 844 -970 - Physical Exam Constitutional: no apparent distress, appears nourished, not in pain Skin: other (foot appears stable) ICD10 Worksheet Patient Problems: Problems Problem Status Onset Hyponatremia Acute Osteomyelitis Acute COPD (chronic obstructive pulmonary disease) Acute Chronic pain Acute Closed head injury Acute Concussion Acute Congestive heart failure Acute Femoral hernia of right side Acute Fibromyalgia Acute Hypoxemia Acute Respiratory failure Acute SDH (subdural hematoma) Acute
--- NOTE | 2018-07-08 09:21 | PCMIDPN ---
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 Patient with evidence of osteomyelitis from MRI on 06/26. Plan to continue IV Zosyn given the Pseudomonas isolate. Patient will be arranged for home IV Zosyn to be given in a 24 hr gtt with probable discharge tomorrow. She will come back to have debridement by Dr. Hooks on the right foot this upcoming Saturday. Plan: 1. Continue IV Zosyn at present dose. 2. Arrange for home IV antibiotics with IV Zosyn. Subjective: Pt discussed case with Dr. Hooks yesterday and she has agreed to treatment plan of I&D next week. She is awake, sitting up in bed, and preparing to eat breakfast. IEstee, am scribing for, and in the presence of, José Beckman MD. José Jaramillo MD, personally performed the services described in this documentation, as scribed by Estee Barnes in my presence, and it is both accurate and complete. Objective: Zosyn # 4 Vital Signs Temp Pulse Resp BP Pulse Ox 36.5 C 73 16 124/88 H 91 L 07/08/18 05:58 07/08/18 08:47 07/08/18 08:47 07/08/18 08:47 07/08/18 08:47 Laboratory Results 07/08/18 05:47 07/08/18 05:47 07/07/18 07/08/18 07/09/18 05:59 05:59 05:59 Intake Total 1944 980 Output Total 1100 1950 Balance 844 -970 ESR 13 MM/HR (0-30) 07/05/18 09:19 C-Reactive Protein 32.9 mg/L (<10.0) H 07/05/18 09:19 Microbiology: 07/04/18 Blood cx (2) NGTD. Imaging studies: 06/26/18 MRI R-foot without and with contrast impression: Worsening osteomyelitis at the 1st cuneiform metatarsal articulation, with progressive osseous erosion at the joint, with a joint effusion and fluid extension from the joint effusion dorsally and plantar aspect. Surrounding myositis and cellulitis. Milder bone marrow edema in the 2nd cuneiform and 2nd metatarsal, which could be reactive osteitis or early osteomyelitis, without erosive change. - Physical Exam General Appearance: alert, cachetic Extremities: other (right Charcot deformity with chronic plantar ulcer just proximal to MTP joint) - Line/s RUE PICC Lines: No drainage, No erythema ICD10 Worksheet Patient Problems: Problems Problem Status Onset Hyponatremia Acute Osteomyelitis Acute COPD (chronic obstructive pulmonary disease) Acute Chronic pain Acute Closed head injury Acute Concussion Acute Congestive heart failure Acute Femoral hernia of right side Acute Fibromyalgia Acute Hypoxemia Acute Respiratory failure Acute SDH (subdural hematoma) Acute
[2018-07-08] MEDS: ACETAMINOPHEN 325 MG TAB PO PRN (17:58)
[2018-07-08] MEDS: CYCLOBENZAPRINE 10 MG TAB PO PRN (17:58)
[2018-07-09] MEDS: PIPERACILLIN/TAZO 4.5 GM/DEX 100 ML IV SCH ×4 (00:17→18:13)
[2018-07-09] MEDS: HYDROmorphONE/DILAUDID 1 MG/ML INJ IVP PRN ×3 (00:27→18:13)
[2018-07-09] MEDS: oxyCODONE IR 5 MG TAB PO PRN ×5 (01:38→21:38)
[2018-07-09] MEDS: ENOXAPARIN 40 MG/0.4 ML SYR SC SCH (09:00)
[2018-07-09] MEDS: DIAZEPAM 2 MG TAB PO SCH ×2 (09:00→21:34)
[2018-07-09] MEDS: NICOTINE 14 MG/24 HR PATCH TD SCH (09:00)
[2018-07-09] MEDS: GABAPENTIN 300 MG CAP PO SCH ×2 (09:01→21:34)
[2018-07-09] MEDS: FAMOTIDINE 20 MG TAB PO SCH (09:01)
--- NOTE | 2018-07-09 10:47 | SOAPPROG ---
SOAP Progress Note Assessment/Plan: Assessment: R foot osteomylitis and charcot collapse Plan: Plan for surgery for I and D on saturday 07/15 at 7:15. Possible fusion at this time or this may need to be staged. May discharge and return for surgery from my perspective Objective: Vital Signs Temp Pulse Resp BP Pulse Ox 36.4 C 68 16 121/87 H 96 07/09/18 08:58 07/09/18 08:58 07/09/18 08:58 07/09/18 08:58 07/09/18 08:58 Laboratory Results 07/08/18 05:47 07/09/18 06:15 07/08/18 07/09/18 07/10/18 05:59 05:59 05:59 Intake Total 980 1400 Output Total 1950 550 Balance -970 850 ICD10 Worksheet Patient Problems: Problems Problem Status Onset Hyponatremia Acute Osteomyelitis Acute COPD (chronic obstructive pulmonary disease) Acute Chronic pain Acute Closed head injury Acute Concussion Acute Congestive heart failure Acute Femoral hernia of right side Acute Fibromyalgia Acute Hypoxemia Acute Respiratory failure Acute SDH (subdural hematoma) Acute
--- NOTE | 2018-07-09 11:43 | HOSPPROG ---
Hospitalist Progress Note Assessment/Plan: 67yo F with chronic opioid dependency who was diagnosed with Pseudomonas osteomyelitis of right foot on 06/26 presents for treatment. 1. Right 1st metatarsal Pseudomonas osteomyelitis: Not septic. Underlying charcot deformity. - ID consulted, continue IV zosyn 4.5mg q6h, PICC in place - Plan for continuous IV zosyn infusion at [facility] - Patient now amenable to surgery with Dr Hooks, tentatively planning on 07/15 for I&D/osteotomy and staged fusion - Awaiting orthotic shoe, possibly will receive today 2. Hyponatremia: Stable. Consistent with SIADH - Continue fluid restriction, monitor daily 3. Normocytic anemia: Likely due to chronic inflammation. Not iron deficient. H/ H stable. Monitor daily. 4. Chronic pain w/opioid dependency: Continue home meds (fentanyl patch, oxycodone, gabapentin, valium). 5. COPD: No acute exacerbation. On room air. Home inhalers. 6. HTN: BP ok. Continue home spironolactone. VTE ppx: LMWH Code: full Diet: regular Dispo: Continue inpatient for IV antibiotics, possible discharge later today if outpatient IV antibiotics set up and receives orthotic shoe. She will need to return 07/15 for surgery w/Dr Hooks. Subjective: Tired, feeling very weak. Not sleeping well. Doesn't want to discharge today Objective: Vital Signs Temp Pulse Resp BP Pulse Ox 36.4 C 68 16 121/87 H 96 07/09/18 08:58 07/09/18 08:58 07/09/18 08:58 07/09/18 08:58 07/09/18 08:58 Laboratory Results 07/08/18 05:47 07/09/18 06:15 07/08/18 07/09/18 07/10/18 05:59 05:59 05:59 Intake Total 980 1400 Output Total 1950 550 Balance -970 850 - Physical Exam Constitutional: no apparent distress, other (thin, frail) Eyes: PERRL, anicteric sclera, EOMI Ears, Nose, Mouth, Throat: other (poor dentition) Cardiovascular: regular rate and rhythym, no murmur, rub, or gallop, No edema Respiratory: no respiratory distress, no rales or rhonchi, clear to auscultation Gastrointestinal: normoactive bowel sounds, soft, non-tender abdomen, no palpable masses Genitourinary: no bladder fullness, no bladder tenderness, no renal bruits Skin: other (right medial foot edema and erythema improved) Musculoskeletal: full muscle strength Neurologic: AAOx3 Psychiatric: other (tangential) ICD10 Worksheet Patient Problems: Problems Problem Status Onset Hyponatremia Acute Osteomyelitis Acute COPD (chronic obstructive pulmonary disease) Acute Chronic pain Acute Closed head injury Acute Concussion Acute Congestive heart failure Acute Femoral hernia of right side Acute Fibromyalgia Acute Hypoxemia Acute Respiratory failure Acute SDH (subdural hematoma) Acute
--- NOTE | 2018-07-09 14:25 | PDIAF ---
- Diagnosis Diagnosis: Osteomyelitis of foot Code Status: Full Code - Medication Management Airplane Rigger Antibiotics: Zosyn 18 g IV Q 24 hr by continuous infusion Airplane Rigger Antibiotic Stop Date: 08/16/18 Discharge Medications: electronically signed and located in the Home Medication List. PICC Care - Routine: Yes - Orders Services needed: Home [facility] Care Face to Face: I certify that this patient was under my care and that I had the required [id number] encounter meeting the encounter requirements on the discharge day. My findings support the fact that the patient is homebound as defined in Home Care Face to Face Continued: CMS Chapter 7 Medicare Benefits Manual 30.1.1 , The condition of the patient is such that there exists a normal inability to leave home and consequently, leaving home would require a considerable and taxing effort. Isolation Type: None Additional Instructions: Please follow up within 3- 4 weeks of discharge with outpatient [facility]. You may reach them at [phone] for an appointment and continued management of your wounds. Please call them angel to schedule your appointment as they fill up quickly. If before that time you have any issues, please follow up with your PCP. Change dressings on right and left hand/finger wounds every other day and prn. When most of the necrosis has been removed (yellow slough) you may change the secondary dressing from hydrocolloid to a border foam. 1. Clean with ns and gauze. Wipe wounds well 2. Skin prep romi wound 3. Apply honey gel to wound beds just enough to fill the beds 4. Cover with hydrocolloid dressing. - Labs/Radiology CBC w/diff Date: 07/14/18 (Weekly Q Saturday) CMP Date: 07/14/18 (Weekly Q Saturday) CRP Date: 07/14/18 (Weekly Q Saturday) Call or Fax Lab and Imaging Results to: Dr. Beckman, - Follow Up Care Current Providers and Referrals: Raoul Giles MD [Primary Care Provider] - As per Instructions José Beckman MD [Medical Doctor] - 07/14/18 2:30 pm
--- NOTE | 2018-07-09 15:55 | PCMIDPN ---
Assessment/Plan: Assessment/Plan: * Right foot osteomyelitis with Charcot arthropathy and wound culture with Pseudomonas: Plans for debridement next week. No active cellulitis present. Continue Zosyn with ultimate duration dependent on operative findings. Will change to continuous infusion for outpatient administration. Side effects of Zosyn and risks/benefits of PICC including DVT or line infection discussed with patient. * Hand rash: Will check hepatitis C antibody given ulcerations in sun exposed areas as could be seen with porphyria cutanea tarda. 07/09/18 19:21 07/09/18 19:24 07/09/18 19:25 Subjective: Patient with planned foot debridement next week. Complains of chronic ulcerations of unclear etiology on hands. No prior biopsy. Objective: Vital Signs Temp Pulse Resp BP Pulse Ox 36.5 C 67 16 125/81 H 92 07/09/18 12:09 07/09/18 12:09 07/09/18 12:09 07/09/18 12:09 07/09/18 12:09 Laboratory Results 07/08/18 05:47 07/09/18 06:15 07/08/18 07/09/18 07/10/18 05:59 05:59 05:59 Intake Total 980 1400 Output Total 1950 550 Balance -970 850 ESR 13 MM/HR (0-30) 07/05/18 09:19 C-Reactive Protein 32.9 mg/L (<10.0) H 07/05/18 09:19 Zosyn #5 - Physical Exam General Appearance: alert, no apparent distress EENT: No scleral icterus Extremities: inflammation (right foot clean ulcer with fibrinous slough; no surrounding cellulitis) Skin: rash (several ulcerations over dorsal aspect of hands) - Time Spent With Patient Time Spent with Patient: greater than 25 minutes Time Spent with Patient: Greater than 25 minutes spent on this patients care, greater than 50% of time spent counseling, educating, and coordinating care regarding the above mentioned plan. ICD10 Worksheet Patient Problems: Problems Problem Status Onset Hyponatremia Acute Osteomyelitis Acute COPD (chronic obstructive pulmonary disease) Acute Chronic pain Acute Closed head injury Acute Concussion Acute Congestive heart failure Acute Femoral hernia of right side Acute Fibromyalgia Acute Hypoxemia Acute Respiratory failure Acute SDH (subdural hematoma) Acute
[2018-07-09 16:36] LABS: HEPATITIS C ANTIBODY TOTAL REACTIVE (NEGATIVE)
[2018-07-10] MEDS: PIPERACILLIN/TAZO 4.5 GM/DEX 100 ML IV SCH ×3 (00:17→12:35)
[2018-07-10] MEDS: HYDROmorphONE/DILAUDID 1 MG/ML INJ IVP PRN (00:18)
[2018-07-10] MEDS: oxyCODONE IR 5 MG TAB PO PRN ×3 (03:51→13:50)
[2018-07-10] MEDS: ACETAMINOPHEN 325 MG TAB PO PRN (04:43)
[2018-07-10] MEDS: ENOXAPARIN 40 MG/0.4 ML SYR SC SCH (08:44)
[2018-07-10] MEDS: FAMOTIDINE 20 MG TAB PO SCH (08:44)
[2018-07-10] MEDS: GABAPENTIN 300 MG CAP PO SCH (08:45)
[2018-07-10] MEDS: DIAZEPAM 2 MG TAB PO SCH (08:45)
[2018-07-10] MEDS: NICOTINE 14 MG/24 HR PATCH TD SCH (08:47)
[2018-07-10 09:27] VITALS: BP 121/88
--- NOTE | 2018-07-10 10:55 | PDDCSUM ---
Discharge Summary Discharge Summary: Date of Admission: 07/04/2018 Date of Discharge: 07/10/2018 Discharge Diagnoses: Right 1st metatarsal osteomyelitis, 2/2 Pseudomonas Charcot foot deformity Hyponatremia 2/2 SIADH Hand rash/ulcers Possible Hepatitis C Anemia, normocytic Chronic pain on opiates COPD HTN Fibromyalgia H/o brain aneurysm H/o SDH H/o cocaine abuse Tobacco use disorder Admission Diagnoses: Right 1st metatarsal osteomyelitis Hyponatremia Normocytic anemia Chronic opiate dependency COPD Hypertension Consultants: Infectious disease-Dr. Juana Burnett. General Surgery- Dr. Myah Caballero. Orthopedic surgery-Dr. Venkata Lei [facility] Course: The patient is a 67-year-old female with past medical history of Pseudomonas osteomyelitis of right foot diagnosed in June who return to the hospital after she had left against medical advice about 1 week prior. She had reported that she wanted to go home for the holidays and take care of her cats. When she returned to the hospital, the infection had progressed. Patient was started on the IV antibiotic Zosyn. General surgery was consulted, but found out that patient normally sees orthopedic surgeon Dr. Hooks. Orthopedic surgeon Dr. Lei was instructional specialist for the orthopedic group and evaluated the patient, recommending initial medical management followed by surgery. Patient has been scheduled for foot surgery on July [address] Hooks. She is medically stable and being discharged home with home health care to continue IV antibiotics. Her sodium was low throughout the admission and review of prior hospital records indicates that her sodium has frequently been low since she had subdural hematoma in summer of 2016. Mechanism of hyponatremia is thought to be SIADH-associated. Patient was kept on fluid restriction which resulted in slight improvement of low sodium. Physical Exam: General: The patient is a female who is alert and in no acute distress. HEENT: normocephalic, extraocular movements intact, conjunctivae clear, no lesions on face. Mucous membranes moist. Neck: trachea midline, no visible masses, no external lesions. Abd: soft and nondistended. Musculoskeletal: Normal gait. Neuro: cranial nerves II - XII grossly intact. Intact gross motor and sensory function. Psych: appropriate mood/affect. Skin: No pallor. +multiple dressings on hands CDI. Heme/lymph: No pitting peripheral edema. Condition: Fair. Discharged to: Home with home healthcare. Pertinent tests/labs/imaging: Sodium on admission 124, 131 on discharge. WBC 12 on admission, 5.5 on discharge Medications: Please see med rec form. New med-IV Zosyn 18 mg IV daily through continuous infusion. Special instructions: Please follow up within 3- 4 weeks of discharge with outpatient [facility]. You may reach them at [phone] for an appointment and continued management of your wounds. Please call them angel to schedule your appointment as they fill up quickly. If before that time you have any issues, please follow up with your PCP. Change dressings on right and left hand/finger wounds every MWF and prn. When most of the necrosis has been removed (yellow slough) you may change the secondary dressing from hydrocolloid to a border foam. 1. Clean with ns and gauze. Wipe wounds well 2. Skin prep romi wound 3. Apply honey gel to wound beds just enough to fill the beds 4. Cover with hydrocolloid dressing. Follow up: PCP in 1 week. Infectious disease specialist in 2 weeks. > 30 minutes of total time was spent on counseling and coordination of care for this patient's discharge.
--- NOTE | 2018-07-10 11:05 | PDIAF ---
- Diagnosis Diagnosis: Osteomyelitis of foot Code Status: Full Code - Medication Management Supervisor Tubing Antibiotics: Zosyn 18 g IV Q 24 hr by continuous infusion Supervisor Tubing Antibiotic Stop Date: 08/16/18 Discharge Medications: electronically signed and located in the Home Medication List. PICC Care - Routine: Yes - Orders Services needed: Home Care, Certified [employer] Consultant, Physical Therapy, Occupational Therapy Home Care Face to Face: I certify that this patient was under my care and that I had the required [id number] encounter meeting the encounter requirements on the discharge day. My findings support the fact that the patient is homebound as defined in Home Care Face to Face Continued: CMS Chapter 7 Medicare Benefits Manual 30.1.1 , The condition of the patient is such that there exists a normal inability to leave home and consequently, leaving home would require a considerable and taxing effort. Isolation Type: None Diet Recommendation: no restrictions on diet, fluid restriction (use comment for amount) (1.8L daily) Diet Texture: Regular Texture Diet Wound Care Instructions: Please follow up within 3- 4 weeks of discharge with outpatient [facility]. You may reach them at [phone] for an appointment and continued management of your wounds. Please call them angel to schedule your appointment as they fill up quickly. If before that time you have any issues, please follow up with your PCP. Change dressings on right and left hand/finger wounds every other day and prn. When most of the necrosis has been removed (yellow slough) you may change the secondary dressing from hydrocolloid to a border foam. 1. Clean with ns and gauze. Wipe wounds well. 2. Skin prep romi wound. 3. Apply honey gel to wound beds just enough to fill the beds. 4. Cover with hydrocolloid dressing. Additional Instructions: Please follow up within 3- 4 weeks of discharge with outpatient [facility]. You may reach them at [phone] for an appointment and continued management of your wounds. Please call them angel to schedule your appointment as they fill up quickly. If before that time you have any issues, please follow up with your PCP. Change dressings on right and left hand/finger wounds every other day and prn. When most of the necrosis has been removed (yellow slough) you may change the secondary dressing from hydrocolloid to a border foam. 1. Clean with ns and gauze. Wipe wounds well 2. Skin prep romi wound 3. Apply honey gel to wound beds just enough to fill the beds 4. Cover with hydrocolloid dressing. - Labs/Radiology CBC w/diff Date: 07/14/18 (Weekly Q Saturday) CMP Date: 07/14/18 (Weekly Q Saturday) CRP Date: 07/14/18 (Weekly Q Saturday) Call or Fax Lab and Imaging Results to: Dr. Beckman, - Follow Up Care Current Providers and Referrals: Raoul Giles MD [Primary Care Provider] - follow up in 1 week José Beckman MD [Medical Doctor] - follow up in 2 weeks
[2018-07-10 11:06] LABS: HCV QT RNA PCR < 1 IU/mL (<10)
--- NOTE | 2018-07-11 10:44 | ASDISCHSUM ---
Discharge Information Plan Status:IV ABX/Infusion Medically Cleared to Leave: Discharge Date:07/10/2018 02:56 PM D/C Disposition:Home, Routine, Self-Care ADT D/C Disposition:Home Health Service Projected Discharge Date:07/11/2018 11:00 AM Transportation at D/C: Discharge Delay Reason: Follow-Up Date:07/11/2018 11:00 AM Discharge Slot: Final Diagnosis: Placement Information Referral Type:Home Infusion Referral ID:[id number] Provider Name:[facility] Address 1:[address] Address 2: City:[place] Selection Factors: State:[place] Referral Type:*Home Health Care Services [facility]erral ID:[id number] Provider Name:[facility] Address [address] Address 2: City:[place] Selection Factors: State:[place] Patient Contact Information Contact Name:LONNY Relationship:Friend Address: Work Phone: City: [facility] Phone: [facility]/Zip Code: Email: Financial Information Financial Class:Medicare Advantage Plans Primary Plan Desc:Isoflux Primary Plan Number:[id number] Secondary Plan Desc:[place] Secondary Plan Number:[id number] Assessment Information [facility] CM Progress Note CM Note CM Note Notes: Patient plan of care reviewed in rounds. 67 year old female with osteomylitis of her right foot refusing surgical interventions. Has cats at home who she is concerned about. [facility] was providing HHC and referral placed. She will require PICC placement and termite treater antibiotics. Referrals in allscripts to HHC and Home infusion [facility]. CM to follow. Plan: To dc to home with HHC and [facility]. Date Signed: 07/06/2018 12:55 PM Electronically Signed By:Veronica Ortega RN [facility] Progress Note CM Note CM Note Notes: Patient discussed during medical rounds. PICC has been placed. Patient is active with [facility], Arti with [facility] met with patient today and will be able to start with patient when ready for IV antibiotics. Physical Therapy pending recommendations. Wound care to consult. October with [facility] and AMBER Marquez with [facility] met with patient today & have worked with the patient closely for a while. They shared the patients disinterest with SNF placement and refusal of surgical intervention as the patient is focused amputation. They also called [employer] [facility] with the patient for the foot orthotic fitting, Type Mapper will attempt to meet with patient today and may be able to return with brace on Saturday. Nora also mentioned [facility] with a goal of a face to face visit to connect with [facility] prior to discharge. APRIL send an email referral to [facility] APRIL. Nora Haney RN can be reached at [phone] to support ongoing needs. APRIL attempted to meet with patient, she was meeting with a medical provider discussing surgical options. D/C Plan: [facility] with [facility] for IV antibiotics Date Signed: 07/07/2018 03:56 PM Electronically Signed By:Antonina Rice Intervention Information Intervention Type:*IM-Signed Date of Service:07/10/2018 02:47 PM Patient Type:Inpatient Staff Member:Aimee Webster Hours: Discipline: Severity: Comment:
[2018-07-11] MEDS ORDERED: ESTRADIOL 0.1 MG TD SCH (15:00)
== END 2018-07-10 14:56 | disposition home health service (06) | DRG 540 ==
LOC: F1N 20:34
PROVIDERS: ADMIT Internal Medicine; ATTEND Internal Medicine
PROC: 02HV33Z Insertion of Infusion Device into Superior Vena Cava, Percutaneous Approach (ICD-10-PCS; principal; 2018-07-06)
DX: M86.9 Osteomyelitis, unspecified (principal); B96.5 Pseudomonas (aeruginosa) (mallei) (pseudomallei) as the cause of diseases classified elsewhere; L97.516 Non-pressure chronic ulcer of other part of right foot with bone involvement without evidence of necrosis; A52.16 Charcot's arthropathy (tabetic); E22.2 Syndrome of inappropriate secretion of antidiuretic hormone; F11.20 Opioid dependence, uncomplicated; G89.29 Other chronic pain; R21 Rash and other nonspecific skin eruption; B19.20 Unspecified viral hepatitis C without hepatic coma; D64.9 Anemia, unspecified; J44.9 Chronic obstructive pulmonary disease, unspecified; I10 Essential (primary) hypertension; M79.7 Fibromyalgia; G62.9 Polyneuropathy, unspecified; Z72.0 Tobacco use
CPT/HCPCS: 96374; 97161-GP; 97166-GO; C1751; G0472; J1170; J1650; J2060; J2543

== ENCOUNTER 2018-07-15 06:31 | Inpatient (IN) | payer OTHER, MEDICAID ==
[2018-07-15] MEDS ORDERED: MIDAZOLAM 2 MG/2 ML VIAL IVP ONE (06:52)
--- NOTE | 2018-07-15 06:53 | PDANEPAE ---
ANE History of Present Illness right foot infection and charcot collapse ANE Past Medical History - Cardiovascular History Hx Hypertension: Yes Hx Arrhythmias: No Hx Chest Pain: No Hx Coronary Artery / Peripheral Vascular Disease: No Hx CHF / Valvular Disease: No Hx Palpitations: No - Pulmonary History Hx COPD: Yes Hx Asthma/Reactive Airway Disease: No Hx Recent Upper Respiratory Infection: No Hx Oxygen in Use at Home: Yes Hx Sleep Apnea: No Sleep Apnea Screening Result - Last Documented: Positive Pulmonary History Comment: gopi positive - Neurologic History Hx Cerebrovascular Accident: No Hx Seizures: No Hx Dementia: No Neurologic History Comment: hx of CHI. DJD. hx of brain aneurysm - Endocrine History Hx Diabetes: No Hypothyroid: No Hyperthyroid: No Obesity: no - Renal History Hx Renal Disorders: Yes Renal History Comment: hyponatremia secondary to SIADH - Liver History Hx Hepatic Disorders: Yes Hepatic History Comment: poss hep c - Neurological & Psychiatric Hx Hx Neurological and Psychiatric Disorders: Yes Neurological / Psychiatric History Comment: chronic pain. fibroymyalgia. hx of cocaine abuse - Other Health History Other Health History: osteomyelitis - Chronic Pain History Chronic Pain: Yes - Surgical History Prior Surgeries: 02/05/18 exploratory lap with [place]. 09/05/10 EGD with [facility] ANE Review of Systems Review of systems is: negative Review of Systems: - Exercise capacity Exercise capacity: limited by disability - Cardio Pulmonary Function Testing Transthoracic echocardiogram (TTE): 10/30/16- Mild concentric LV hypertrophy, EF 73%, LV wall motion normal, RV normal size and function, left atrial size is normal, mild MR, mild TR, RVSP is 49 mmHg, moderate pulmonary HTN, mild AR, no pericardial effusion ANE Patient History - Allergies Allergies/Adverse Reactions: No Known Allergies Allergy (Verified 06/26/18 18:22) - Home Medications Home medications: home medication list seen and reviewed Home Medications: Levalbuterol Inhaler [Xopenex Hfa Inhaler (*)] 1 puffs IH Q4HRS PRN 10/31/16 [ Last Taken 07/13/18] clonIDINE [Catapres (*)] 0.05 mg PO BID 01/04/17 [Last Taken 07/14/18] oxyCODONE IR [Oxycodone Ir (*)] 30 mg PO .6XD PRN 01/04/17 [Last Taken 07/15/18 05:00] Diazepam [Valium 2 MG (*)] 1 mg PO BID 02/04/18 [Last Taken 07/14/18] Estradiol [Estraderm 0.1 MG (RX)] 0.1 mg TD FR 02/04/18 [Last Taken 07/11/18] Famotidine [Pepcid 20 MG (*)] 20 mg PO DAILY 02/04/18 [Last Taken 07/14/18] Polyethylene Glycol 3350 [Miralax 17 gm (*)] 17 gm PO DAILY PRN 02/04/18 [Last Taken 07/08/18] fentaNYL [Duragesic 50 MCG Patch (*)] 50 mcg TD Q72H 02/04/18 [Last Taken ] Gabapentin [Neurontin 300 MG (*)] 300 mg PO BID 07/04/18 [Last Taken 07/14/18] Ipratropium/Albuterol [Duoneb (*)] 3 ml IH QID PRN 07/04/18 [Last Taken 07/13/18 ] Sennosides/Docusate Sodium [Senokot-S] 1 - 2 tab PO BID PRN 07/04/18 [Last Taken 07/12/18] Spironolactone [Aldactone 25 MG (*)] 25 mg PO DAILY 07/04/18 [Last Taken ] - NPO status NPO Status: no food or drink >8 hours - Anes Hx Anes Hx: no prior problems - Smoking Hx Smoking Status: Heavy smoker ANE Labs/Vital Signs - Vital Signs Height: 160.02 cm Weight: 58.967 kg ANE Physical Exam - Airway Neck exam: FROM Mallampati Score: Class 2 Mouth exam: poor dentition - Pulmonary Pulmonary: rhonchi - Cardiovascular Cardiovascular: regular rate and rhythym - ASA Status ASA Status: III ANE Anesthesia Plan Anesthesia Plan: general endotracheal anesthesia Regional Anesthesia: single shot NB, continuous NB, adductor canal FNB (Plan for popliteal cathetr and single shot AC for postop pain control. Plan for GA for surgery), popliteal SNB
--- NOTE | 2018-07-15 07:02 | PDHPUP ---
History & Physical Update H&P update statement: This history and physical update is based on an assessment of the patient which was completed after admission or registration (within 24 hours), but prior to the surgery/procedure. H&P update: H&P reviewed & patient examined, no change in patient's condition since H&P completed
[2018-07-15] MEDS ORDERED: fentaNYL 250 MCG/5 ML INJ ONE (07:17)
[2018-07-15] MEDS ORDERED: PROPOFOL 200 MG/20 ML VIAL ONE (07:18)
[2018-07-15] MEDS ORDERED: LR 1,000 ML IV ONE (07:22)
[2018-07-15] MEDS ORDERED: ROPIVACAINE HCL 150 MG/30 ML INJ ONE (07:56)
[2018-07-15] MEDS ORDERED: ROCURONIUM 50 MG/5 ML VIAL ONE (07:56)
[2018-07-15] MEDS ORDERED: DEXAMETHASONE 4 MG/ML VIAL ONE (07:56)
[2018-07-15] MEDS ORDERED: ONDANSETRON 4 MG/2 ML VIAL ONE (07:56)
[2018-07-15] MEDS ORDERED: ROPIVACAINE 0.2% 1,100 MG in PUMP SET 1 EA NB SCH (09:00)
[2018-07-15] MEDS ORDERED: HYDROmorphONE/DILAUDID 2 MG/ML INJ ONE (09:15)
[2018-07-15] MEDS ORDERED: HYDROmorphONE/DILAUDID 2 MG/ML INJ IVP PRN (10:10)
[2018-07-15] MEDS ORDERED: ALBUTEROL 3 ML DEYVIAL IH PRN (10:10)
[2018-07-15] MEDS ORDERED: DIAZEPAM 5 MG/ML 1 ML SYR IVP PRN (10:10)
[2018-07-15] MEDS ORDERED: MEPERIDINE 25 MG/0.5 ML AMP IVP PRN (10:10)
[2018-07-15] MEDS ORDERED: PHENYLEPHRINE HCL 100 MCG/ML SYR IVP PRN (10:10)
[2018-07-15] MEDS ORDERED: oxyCODONE IR 5 MG TAB PO PRN (10:10)
[2018-07-15] MEDS ORDERED: LR 500 ML IV PRN (10:10)
[2018-07-15] MEDS ORDERED: NALOXONE HCL 0.4 MG/ML INJ IVP PRN (10:10)
[2018-07-15] MEDS ORDERED: PROMETHAZINE HCL 25 MG/ML INJ IVP PRN (10:10)
[2018-07-15] MEDS ORDERED: METOCLOPRAMIDE 10 MG/2 ML VIAL IVP PRN (10:10)
[2018-07-15] MEDS ORDERED: ACETAMINOPHEN 500 MG TAB PO PRN (10:10)
--- NOTE | 2018-07-15 10:29 | POSTOPPROG ---
Post Op Note Date of Operation: 07/15/18 Surgeon: Quinton Hooks Comsec Manager: Kirsty Anesthesia: GET(General Endotracheal) Pre-op Diagnosis: R foot charcot collapse Post-op Diagnosis: same Indication: above Procedure: DEISY, I and D, osteotomy,midfoot fusion, 2nd hammer toe Inf/Abcess present in the surg proc area at time of surgery?: Yes Depth: Deep Incisional (Fascial) EBL: 50-100
[2018-07-15] MEDS ORDERED: fentaNYL 100 MCG/2 ML INJ ONE (10:34)
[2018-07-15] MEDS ORDERED: LEVALBUTEROL INHALER 200 PUFFS/15 GM MDI IH PRN (10:35)
[2018-07-15] MEDS ORDERED: POLYETHYLENE GLYCOL 3350 17 GM PKT PO PRN (10:35)
[2018-07-15] MEDS ORDERED: IPRATROPIUM/ALBUTEROL 3 ML DEYVIAL IH PRN (10:35)
[2018-07-15] MEDS: fentaNYL 100 MCG/2 ML INJ IVP PRN ×2 (10:36→13:59)
[2018-07-15] MEDS ORDERED: HYDROmorphONE/DILAUDID 1 MG/ML INJ IVP PRN (10:37)
[2018-07-15] MEDS ORDERED: ONDANSETRON 4 MG/2 ML VIAL IVP PRN (10:37)
[2018-07-15] MEDS ORDERED: fentaNYL 50 MCG PATCH TD SCH ×2 (10:45→20:45)
[2018-07-15] MEDS ORDERED: NS 1,000 ML IV SCH (10:45)
--- NOTE | 2018-07-15 11:25 | POSTANESTH ---
Post Anesthetic Evaluation Cardiovascular Status: Normal, Stable Respiratory Status: Normal, Stable Level of Consciousness/Mental Status: Can Participate in Eval Pain Control: Adequate, Prn Tx Ordered Nausea/Vomiting Control: Adequate, Prn Tx Ordered Complications Possibly Related to Anesthesia: None Noted
--- NOTE | 2018-07-15 11:26 | PDMN ---
Medical Necessity Medical necessity: Pt meets inpt criteria per MD order and Musculoskeletal Surgery GRG. 67 y/o w/R foot charcot collapse admitted for surg: DEISY, I&D, osteotomy, midfoot fusion, 2nd hammer toe, inf/abcess present at time of surg, cultures pending. Pt w/PMH including COPD- on home O2, CHI, brain aneurism, chronic pain, fibromyalgia, osteomyelitis, HTN, hyponatremia sec to SIADH. ID and Hospitalist consults pending, PT/OT pending. Anticipate>2MN for management/ post-op care of above.
--- NOTE | 2018-07-15 11:59 | GOP ---
DATE OF OPERATION: 07/15/2018 SURGEON: Quinton Hooks MD LEAD ANDROID DEVELOPER: Eusebio Lofton SA PREOPERATIVE DIAGNOSIS: 1. Right foot Charcot collapse. 2. Right foot mid foot arthritis. 3. Right foot draining stage IV ulcer. 4. Achilles tendon contracture. POSTOPERATIVE DIAGNOSIS: 1. Right foot Charcot collapse. 2. Right foot mid foot arthritis. 3. Right foot draining stage IV ulcer. 4. Achilles tendon contracture. PROCEDURE PERFORMED: 1. Right foot irrigation and debridement. 2. Right tendo-Achilles lengthening, [place] triple step cut. 3. Right midfoot osteotomy biplanar, including inner cuneiform, navicular cuneiform, and metatarsal cuneiform joints. 4. Right 2nd hammertoe correction. FINDINGS: SPECIMENS: Bone and deep tissue for culture. ESTIMATED BLOOD LOSS: 50 mL. INDICATIONS: Female with significant Charcot arthropathy, midfoot collapse, pressure ulcers. I had seen her multiple times in the clinic and discussed performing a surgery to correct her mid foot and deformity, as well as her need to off weight this to allow this to heal. She refused any surgical in tervention. She was admitted to the hospital last week, seen by multiple providers, including myself . She eventually acquiesced to surgery this week, she refused surgery last week, and we did discuss amputation. She refused an amputation of any kind, including a midfoot amputation or below-knee ampu tation. She demanded at attempt at salvage. I told her this could be attempted with a midfoot osteo swetha and fixation, and treatment with IV antibiotics, but if she became infected or did not heal, she would likely require least a mid foot amputation, possible below-knee amputation. She understood th is. We discussed risks of wound complications, failure, need for amputation, blood clot, heart attac k, stroke, , and she would like to proceed. Informed consent was obtained and all questions ans wered. She was marked preoperatively. DESCRIPTION OF PROCEDURE: She was taken to the operative suite, sterilely prepped and draped in norm al fashion time-out was performed verifying site, side, location, and there was agreement with the te am. Began the procedure by performing the Achilles tendon lengthening, triple step cut, and releasing a p ortion of the Achilles contracture. I then debrided the ulcer and then changed instruments and glove s. I made a medial incision. I dissected down. There was thick copious tissue that was chronic appeari ng in nature. There was no pus; however, I debrided this. I debrided down to the plantar side of th e ulcer and there was no evidence of purulent infection. More chronic minimally inflamed tissue. Th e bone did not look infected either. I then mobilized the soft tissue on the dorsum and plantar side of the midfoot. I then placed K-wires and took the fluoroscopic pictures, and then made the osteoto my in a biplanar fashion to correct her sagittal and coronal plane deformity. I completed this with saw and removed this bone, and I was able to prepare the rest. The navicular cuneiform joints were d enuded of cartilage. I was able to reduce the osteotomy and hold this with a clamp. Placed a wire a fter opening this back up antegrade down the 1st metatarsal out the skin, pulled this back, and then made a small incision in this area, and then, I reduced the osteotomy, placed this wire across this, checked this fluoroscopically, and placed a 5-0 headless compression screw across this. I then selected a plantar Lapidus plate and sized this appropriately. I then took the tib ant, which had previously been saved after removal of the bone of its attachment, and placed this underneath, s wilhelm this back to the soft tissue underneath. I then placed the plate over this. I then placed loc nathan, nonlocking screws to hold additional fixation on the medial column, as well as over the tib ant and into the 2nd tarsometatarsal joint. I then placed additional headless screw dorsally as well to close the small gap in this area, and also bone grafted dorsally with allograft bone. This was a sm all gap in this area. Plantarly, she had good bony compression. I took final x-rays. This was stab le. She was irrigated thoroughly. She was closed with 2-0 PDS and 3-0 nylon. The 2nd hammertoe correcti on had also been performed by resecting the PIP joint and then placing a K-wire across this. I then closed her, and then, the K-wire was cut and a cap was placed. She was placed in a splint in stable condition. COMPLICATIONS: None. DRAINS: None. IMPLANTS: Arthrex 5-0 headless compression screws and a plantar Lapidus plate with locking and nonlo cking screws. /[id number]/MODL
[2018-07-15] MEDS ORDERED: PIPERACILLIN/TAZO 4.5 GM/DEX 100 ML IV SCH (16:00)
[2018-07-15] MEDS: PIPERACILLIN NA/TAZO 4.5 GM in D5W 100 ML IV SCH ×2 (17:27→23:03)
[2018-07-15] MEDS: GABAPENTIN 300 MG CAP PO SCH (21:00)
[2018-07-15] MEDS ORDERED: DIAZEPAM 2 MG TAB PO SCH (21:00)
[2018-07-15] MEDS: ACETAMINOPHEN 325 MG TAB PO PRN (21:02)
[2018-07-16] MEDS ORDERED: HYDROmorphONE/DILAUDID 1 MG/ML INJ IVP ONE (04:15)
[2018-07-16] MEDS ORDERED: DIAZEPAM 2 MG TAB PO ONE (04:15)
[2018-07-16] MEDS: PIPERACILLIN NA/TAZO 4.5 GM in D5W 100 ML IV SCH ×4 (04:18→22:52)
--- NOTE | 2018-07-16 06:37 | CPEKG ---
Test Reason : OPEN Blood Pressure : / mmHG Vent. Rate : 074 BPM Atrial Rate : 073 BPM P-R Int : 180 ms QRS Dur : 089 ms QT Int : 403 ms P-R-T Axes : 069 026 029 degrees QTc Int : 448 ms Sinus rhythm Left atrial enlargement noted Inferior infarct, old Confirmed by Toni River ([id number]) on 07/16/2018 6:37:13 AM Referred By: Confirmed By:Toni River
[2018-07-16] MEDS ORDERED: DEX IV SCH (09:00)
[2018-07-16] MEDS ORDERED: DIAZEPAM 2 MG TAB PO SCH (09:00)
[2018-07-16] MEDS ORDERED: PIPERACILLIN IV SCH (09:00)
[2018-07-16] MEDS ORDERED: TAZO IV SCH (09:00)
[2018-07-16] MEDS: ENOXAPARIN 40 MG/0.4 ML SYR SC SCH (10:16)
[2018-07-16] MEDS: GABAPENTIN 300 MG CAP PO SCH ×2 (10:17→21:03)
[2018-07-16] MEDS: SPIRONOLACTONE 25 MG TAB PO SCH (10:17)
[2018-07-16] MEDS: FAMOTIDINE 20 MG TAB PO SCH (10:17)
[2018-07-16] MEDS: DIAZEPAM 2 MG TAB PO SCH ×2 (10:35→21:03)
[2018-07-16] MEDS: ACETAMINOPHEN 325 MG TAB PO PRN ×2 (10:45→14:46)
--- NOTE | 2018-07-16 14:38 | PCMIDPN ---
Assessment/Plan: # Right foot osteomyelitis with Charcot arthropathy and wound culture with Pseudomonas s/p DEISY, I and D, osteotomy,midfoot fusion, 2nd hammer toe yesterday. gram stain neg from OR --continue IV Zosyn --monitor cultures # Superficial ulcers hands B : HCV load negative, patient given info --wound care consult. meds Zosyn 4.5 gm IV q6h #12 Subjective: very talkative woman , perseverating on need for IV pain meds and origin of "rash" on hands C/o pain RLE Objective: Vital Signs Temp Pulse Resp BP Pulse Ox 36.6 C 74 16 128/70 H 94 07/16/18 11:26 07/16/18 11:26 07/16/18 11:26 07/16/18 11:26 07/16/18 11:26 Microbiology 07/15/18 08:30 Gram Stain - Final Foot - Bone 07/15/18 07/16/18 07/17/18 05:59 05:59 05:59 Intake Total 1740 350 Output Total 1300 550 Balance 440 -200 - Physical Exam General Appearance: alert, no apparent distress EENT: poor dentition Respiratory: lungs clear, No accessory muscle use Neck: supple Cardiac/Chest: regular rate, rhythm Extremities: other (cast in place RLE, pin in place, nl cap refil; ) Skin: other (small superficial ulceration B hand without surrounding erythema) Neuro/Psych: alert, normal mood/affect, oriented x 3 - Line/s RUE PICC Lines: No drainage, No erythema - Time Spent With Patient Time Spent with Patient: greater than 35 minutes Time Spent with Patient: Greater than 35 minutes spent on this patients care, greater than 50% of time spent counseling, educating, and coordinating care regarding the above mentioned plan. ICD10 Worksheet Patient Problems: Problems Problem Status Onset COPD (chronic obstructive pulmonary disease) Acute Chronic pain Acute Closed head injury Acute Concussion Acute Congestive heart failure Acute Femoral hernia of right side Acute Fibromyalgia Acute Hyponatremia Acute Hypoxemia Acute Osteomyelitis Acute Respiratory failure Acute SDH (subdural hematoma) Acute
--- NOTE | 2018-07-16 14:43 | ASMTCMCOM ---
CM Note CM Note Notes: Pt admitted for scheduled surgery on right foot. She is current with [facility] (RN only) for woundcare. PT attempted to see her today but she refused. CM contacted Nora Lyndon ([phone]) who is her CM at her MD's office. Nora reports that pt also has a person who comes in for light help at home through [facility], a few hours a week. CM met with pt, she agreed to work with therapies but they keep interrupting her meals. Wants a referral sent to [facility]. CM left a message for Sivan Vargas ([phone]) to follow up with pt in hospital if possible. [facility] lining caser: Kezia Sawyer ([phone]) DC Plan: SNF Date Signed: 07/16/2018 02:42 PM Electronically Signed By:Krystle Nava RN
--- NOTE | 2018-07-16 16:01 | SOAPPROG ---
SOAP Progress Note Assessment/Plan: Assessment: R charcot foot R foot ostoetomy and fusion, DEISY 07/15/18 Plan: nwb RLE elevate ice will need placement in snf IV abx per ID 07/16/18 16:00 Subjective: pain in medial foot Objective: Vital Signs Temp Pulse Resp BP Pulse Ox 36.5 C 68 16 114/73 95 07/16/18 15:47 07/16/18 15:47 07/16/18 15:47 07/16/18 15:47 07/16/18 15:47 Microbiology 07/15/18 08:30 Gram Stain - Final Foot - Bone 07/15/18 07/16/18 07/17/18 05:59 05:59 05:59 Intake Total 1740 350 Output Total 1300 550 Balance 440 -200 splint cdi toes good cap refill pin intact ICD10 Worksheet Patient Problems: Problems Problem Status Onset COPD (chronic obstructive pulmonary disease) Acute Chronic pain Acute Closed head injury Acute Concussion Acute Congestive heart failure Acute Femoral hernia of right side Acute Fibromyalgia Acute Hyponatremia Acute Hypoxemia Acute Osteomyelitis Acute Respiratory failure Acute SDH (subdural hematoma) Acute
--- NOTE | 2018-07-16 16:13 | PDPAINCON ---
Pain Management Consultation - Subjective Pain is: high, but manageable (Pt notes that right foot feels less numb then before however still feels numbness.) Activity: out of bed with assistance - Objective Technique: continuous peripheral nerve block Site: sciatic Continuous infusion: ropivicaine Catheter site: clean, dry, intact, no erythema/edema/exudate Sensory and motor exam: consistent with block Vital signs: stable - Assessment/Plan Assessment/Plan: change infusion rate (Will increase infusion rate from 6 to 10 ml/hr.)
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
[2018-07-16] MEDS: NICOTINE 14 MG/24 HR PATCH TD SCH (22:55)
[2018-07-17] MEDS: PIPERACILLIN NA/TAZO 4.5 GM in D5W 100 ML IV SCH ×2 (04:28→10:14)
[2018-07-17 04:47] LABS: PLATELET COUNT 183 10^3/uL (150-400)
--- NOTE | 2018-07-17 08:52 | SOAPPROG ---
SOAP Progress Note Assessment/Plan: Assessment: R charcot foot R foot ostoetomy and fusion, DEISY 07/15/18 Plan: nwb RLE elevate ice will need placement in snf IV abx per ID 07/16/18 16:00 Subjective: pain in foot Objective: Vital Signs Temp Pulse Resp BP Pulse Ox 37.1 C 76 16 143/77 H 92 07/17/18 08:00 07/17/18 08:00 07/17/18 08:00 07/17/18 08:00 07/17/18 08:00 Microbiology 07/15/18 08:30 Gram Stain - Final Foot - Bone Laboratory Results 07/17/18 04:41 07/17/18 04:41 07/16/18 07/17/18 07/18/18 05:59 05:59 05:59 Intake Total 1740 650 Output Total 1300 3750 350 Balance 440 -3100 -350 dressing cdi ICD10 Worksheet Patient Problems: Problems Problem Status Onset COPD (chronic obstructive pulmonary disease) Acute Chronic pain Acute Closed head injury Acute Concussion Acute Congestive heart failure Acute Femoral hernia of right side Acute Fibromyalgia Acute Hyponatremia Acute Hypoxemia Acute Osteomyelitis Acute Respiratory failure Acute SDH (subdural hematoma) Acute
--- NOTE | 2018-07-17 09:06 | PDPAINCON ---
Pain Management Consultation Patient referred by : Jessee - Subjective Pain is: high, but manageable Activity: out of bed with assistance - Objective Technique: continuous peripheral nerve block Site: sciatic Continuous infusion: ropivicaine Catheter site: clean, dry, intact, no erythema/edema/exudate Sensory and motor exam: consistent with block Vital signs: stable - Assessment/Plan Assessment/Plan: pain well-controlled, continue current mgmt (Pt c/o fibromyalgia pain and requesting morphine to control that. States has numbness in right foot. Will continue current management.)
[2018-07-17] MEDS: ENOXAPARIN 40 MG/0.4 ML SYR SC SCH (09:53)
[2018-07-17] MEDS: DIAZEPAM 2 MG TAB PO SCH ×2 (09:53→20:50)
[2018-07-17] MEDS: FAMOTIDINE 20 MG TAB PO SCH (09:53)
[2018-07-17] MEDS: GABAPENTIN 300 MG CAP PO SCH ×2 (09:54→20:50)
[2018-07-17] MEDS: NICOTINE 14 MG/24 HR PATCH TD SCH (09:54)
[2018-07-17] MEDS: SPIRONOLACTONE 25 MG TAB PO SCH (10:15)
--- NOTE | 2018-07-17 10:51 | PCMIDPN ---
Assessment/Plan: 1. Right foot osteomyelitis status post tendino-Achilles lengthening, osteotomy , and hammertoe repair, postop day 2: Continue Zosyn at present dose given previous finding of Pseudomonas. Surgical cultures are pending. Hopefully will go to longterm facility in short order. I did not broach any pain medication issues, although patient did mention this on multiple occasions. 2. Left hand lesions: Patient is perseverating about these, and wanting to know why we are not doing a biopsy. For now, will have wound care see her. No evidence of chronic hepatitis-C causing PCT. Explained the patient at length that wound care is the best maneuver moving forward. I do not feel she needs a biopsy presently unless these absolutely do not heal without the above interventions. Subjective: Talking at length about her pain medication, and the fact that her intravenous pain medicine was discontinued. Also perseverating about her left hand wound. No diarrhea. Objective: Zosyn 4.5 g IV q.6 hours day 13 No fevers Vital Signs Temp Pulse Resp BP Pulse Ox 37.1 C 76 16 132/75 H 92 07/17/18 08:00 07/17/18 08:00 07/17/18 08:00 07/17/18 09:53 07/17/18 08:00 Microbiology 07/15/18 08:30 Gram Stain - Final Foot - Bone Laboratory Results 07/17/18 04:41 07/17/18 04:41 07/16/18 07/17/18 07/18/18 05:59 05:59 05:59 Intake Total 1740 650 Output Total 1300 3750 500 Balance 440 -3100 -500 Operative cultures pending Gram stain 1+ PMNs, no organisms - Physical Exam General Appearance: no apparent distress, cachetic EENT: No thrush Extremities: other (Right lower extremity is immobilized with surgical dressing) Skin: other (Left hand has a dressing in place that she declines to take down.) ICD10 Worksheet Patient Problems: Problems Problem Status Onset COPD (chronic obstructive pulmonary disease) Acute Chronic pain Acute Closed head injury Acute Concussion Acute Congestive heart failure Acute Femoral hernia of right side Acute Fibromyalgia Acute Hyponatremia Acute Hypoxemia Acute Osteomyelitis Acute Respiratory failure Acute SDH (subdural hematoma) Acute
[2018-07-17] MEDS ORDERED: KETOROLAC 30 MG/1 ML SDV IVP PRN (13:10)
[2018-07-17] MEDS: ACETAMINOPHEN 325 MG TAB PO PRN (15:36)
[2018-07-17] MEDS: PIPERACILLIN/TAZO 4.5 GM/DEX 100 ML IV SCH ×2 (15:38→22:11)
--- NOTE | 2018-07-17 15:45 | ASMTCMCOM ---
CM Note CM Note Notes: [facility] reports that they cannot accept at this time because they project that pt will need 20 + days. CM sent out numerous other referrals. [facility] is able to accept and will start getting auth. APRIL notified SALIMA Melchor of this news. Toni from [facility] stopped by to meet w/ pt. Toni reports that he will need to speak to his project administrator before he can accept. CM to follow. Date Signed: 07/17/2018 03:45 PM Electronically Signed By:KATIE Pérez
--- NOTE | 2018-07-17 16:31 | WOCRNPDOC ---
RAJWINDER Advanced Assessment Note - Skin Integrity Problem, Advanced Assess Left First Toe Dressing Type: Open to Air Romi Wound Tissue: Dry, Calloused Skin Integrity Problem Comment: Patient with callouses to her left first and second toes. Patient states callouses were "cut off" in the OR. [place] with betadyne BID. Left Second Toe Dressing Type: Open to Air Romi Wound Tissue: Dry, Calloused Left Dorsal Hand Dressing Type: Allevyn Life Dressing Description: Clean/Dry, Intact Closure Description: Not Approximated Exudate Amount: Scant Exudate Color: Reddish/Yellow Exudate Characteristic(s): Serosanguinous Integumentary Issue Intervention: Dressing Changed, Mechanical Debridement Romi Wound Tissue: Erythema, Painful/Tender Wound Bed Color: Gore, Yellow Wound Bed Constitution: Red/Gore - Non Granular Tissue, Mixed Loose & Adhered Slough/Eschar Wound Edges: Attached, Well Defined Site Measurement - Head-to-Toe Length X Width X Depth (cm): 0.5x0.5x0.3 Skin Integrity Problem Comment: Wound cleaned with NS and gauze. Loose yellow slough removed from wound bed. Will initiate autolytic debridement with honey to loosen remaining slough. Wound measures smaller than documented measurements 2 weeks ago. Wound care will round again later next week. Left Dorsal Thumb Dressing Type: Open to Air Exudate Color: Yellow (dried) Integumentary Issue Intervention: Dressing Applied Romi Wound Tissue: Erythema, Painful/Tender Wound Bed Color: Yellow Wound Bed Constitution: Adhered Slough Wound Edges: Attached, Well Defined Site Measurement - Head-to-Toe Length X Width X Depth (cm): 0.7x0.3xslough Skin Integrity Problem Comment: Wound measures smaller than last documented measurement 2 weeks ago. Will initiate autolytic debridement with honey. Wound care will round again later next week. Right First Finger Dressing Type: Band Aid Dressing Description: Clean/Dry, Intact Closure Description: Approximated Integumentary Issue Intervention: Dressing Changed Romi Wound Tissue: Scarred, Painful/Tender Romi Wound Swelling: None Wound Bed Color: Yellow Wound Bed Constitution: Dried Exudate Wound Edges: Attached, Well Defined Site Measurement - Head-to-Toe Length X Width X Depth (cm): 0.7x0.3xexudate Skin Integrity Problem Comment: Area cleaned with NS and gauze and skin prep applied to romi wound tissue. Painful to the touch. Will initiate autolytic debridement with honey. Wound measurements smaller than last documented size 2 weeks ago.
[2018-07-17] MEDS: traMADol 50 MG TAB PO PRN (18:21)
--- NOTE | 2018-07-17 19:07 | HOSPPROG ---
Hospitalist Progress Note Assessment/Plan: * Right foot osteomyelitis with stage IV ulcer s/p I&D -IV Zosyn - ID following * Charcot foot with collapse s/p midfoot osteotomy -pain control difficult - try Ultram * Fibromyalgia with continuous narcotic dependency -home meds * COPD with ongoing tobacco dependence Subjective: c/o post - op pain right foot Objective: Vital Signs Temp Pulse Resp BP Pulse Ox 36.5 C 66 16 138/90 H 92 07/17/18 15:44 07/17/18 15:44 07/17/18 15:44 07/17/18 15:44 07/17/18 15:44 Microbiology 07/15/18 08:30 Gram Stain - Final Foot - Bone Laboratory Results 07/17/18 04:41 07/17/18 04:41 07/16/18 07/17/18 07/18/18 05:59 05:59 05:59 Intake Total 1740 650 Output Total 1300 3750 500 Balance 440 -3100 -500 - Physical Exam Constitutional: no apparent distress, appears nourished, not in pain Cardiovascular: regular rate and rhythym, no murmur, rub, or gallop Respiratory: no respiratory distress, no rales or rhonchi, clear to auscultation Gastrointestinal: normoactive bowel sounds, soft, non-tender abdomen, no palpable masses Skin: no rashes or abrasions, no fluctuance, no induration Neurologic: AAOx3, sensation intact bilaterally Psychiatric: interacting appropriately, not anxious, not encephalopathic, thought process linear ICD10 Worksheet Patient Problems: Problems Problem Status Onset Congestive heart failure Acute Respiratory failure Acute Hypoxemia Acute Closed head injury Acute Chronic pain Acute Concussion Acute SDH (subdural hematoma) Acute Femoral hernia of right side Acute COPD (chronic obstructive pulmonary disease) Acute Fibromyalgia Acute Osteomyelitis Acute Hyponatremia Acute
[2018-07-18] MEDS: traMADol 50 MG TAB PO PRN (00:07)
[2018-07-18] MEDS: PIPERACILLIN/TAZO 4.5 GM/DEX 100 ML IV SCH ×3 (04:37→15:57)
--- NOTE | 2018-07-18 07:52 | SOAPPROG ---
SOAP Progress Note Assessment/Plan: Assessment: R charcot foot R foot ostoetomy and fusion, DEISY 07/15/18 Plan: nwb RLE elevate ice will need placement in snf IV abx per ID 07/16/18 16:00 Subjective: pain in foot Objective: Vital Signs Temp Pulse Resp BP Pulse Ox 36.5 C 66 16 138/90 H 92 07/17/18 15:44 07/17/18 15:44 07/17/18 15:44 07/17/18 20:51 07/17/18 15:44 Microbiology 07/15/18 08:30 Gram Stain - Final Foot - Bone Laboratory Results 07/17/18 04:41 07/17/18 04:41 07/17/18 07/18/18 07/19/18 05:59 05:59 05:59 Intake Total 650 105 Output Total 3750 500 Balance -3100 -395 foot cdi ICD10 Worksheet Patient Problems: Problems Problem Status Onset COPD (chronic obstructive pulmonary disease) Acute Chronic pain Acute Closed head injury Acute Concussion Acute Congestive heart failure Acute Femoral hernia of right side Acute Fibromyalgia Acute Hyponatremia Acute Hypoxemia Acute Osteomyelitis Acute Respiratory failure Acute SDH (subdural hematoma) Acute
[2018-07-18] MEDS: GABAPENTIN 300 MG CAP PO SCH (08:57)
[2018-07-18] MEDS: ENOXAPARIN 40 MG/0.4 ML SYR SC SCH (08:57)
[2018-07-18] MEDS: SPIRONOLACTONE 25 MG TAB PO SCH (08:58)
[2018-07-18] MEDS: DIAZEPAM 2 MG TAB PO SCH (08:58)
[2018-07-18] MEDS: NICOTINE 14 MG/24 HR PATCH TD SCH (08:59)
[2018-07-18] MEDS: FAMOTIDINE 20 MG TAB PO SCH (09:04)
--- NOTE | 2018-07-18 10:04 | PDIAF ---
- Diagnosis Code Status: Full Code - Medication Management Discharge Medications: electronically signed and located in the Home Medication List. - Orders Services needed: Registered Nurse, Certified Shop Estimator, Physical Therapy, Occupational Therapy Isolation Type: None Diet Recommendation: no restrictions on diet Diet Texture: Regular Texture Diet Activity/Weight Bearing Restrictions: right leg non wt bearing Additional Instructions: Right lower extremity non wt bearing elevate ice - Follow Up Care Current Providers and Referrals: Quinton Hooks MD [Medical Doctor] - follow up in 1 week NONE *PRIMARY CARE P,. [Unknown] -
[2018-07-18] MEDS ORDERED: ESTRADIOL 0.1 MG TD SCH (10:35)
--- NOTE | 2018-07-18 10:47 | PDIAF ---
- Diagnosis Diagnosis: Osteomyelitis right foot Code Status: Full Code - Medication Management Fpc Antibiotics: Zosyn 4.5 g IV q.6 hours Mud Plant Operator Antibiotic Stop Date: 08/16/18 Discharge Medications: electronically signed and located in the Home Medication List. PICC Care - Routine: Yes - Orders Services needed: Registered Nurse, Certified Director Underwriter Sales, Physical Therapy, Occupational Therapy Isolation Type: None Diet Recommendation: no restrictions on diet Diet Texture: Regular Texture Diet Activity/Weight Bearing Restrictions: right leg non wt bearing Additional Instructions: Right lower extremity non wt bearing elevate ice - Labs/Radiology CBC w/diff Date: 07/22/18 (Labs Q Saturday. Fax results to Dr. Beckman [phone]) CMP Date: 07/22/18 (Labs Q Saturday. Fax results to Dr. Beckman [phone]) - Follow Up Care Current Providers and Referrals: Quinton Hooks MD [Medical Doctor] - follow up in 1 week NONE *PRIMARY CARE P,. [Unknown] - José Beckman MD [Medical Doctor] - (We will arrange follow-up.)
--- NOTE | 2018-07-18 14:57 | ASMTLACE ---
ANGELLAE Length of stay for Answers: 4-6 days current admission Acuity / Level of Answers: Yes Care: Did the patient have an inpatient admission? Comorbidities - select Answers: Chronic pulmonary disease all that apply Congestive heart failure Opioid dependence / Chronic pain Other Notes: HTN # of Emergency department Answers: 3-4 visits in the last 6 months Social determinants Answers: History of substance abuse (ETOH, street drugs, prescription drugs, etc.) Score: 22 Date Signed: 07/18/2018 02:56 PM Electronically Signed By:FELIPE Rajput
--- NOTE | 2018-07-18 15:01 | ASMTCMCOM ---
CM Note CM Note Notes: Pt is accepted at both [facility] and [facility]. [facility] declines pt. [facility] chooses [facility] who have [employer] ins dino. Debbie with [facility] admissions then calls to report due to multiple residents at [facility] who have n/v, they cannot have new admits. Debbie can place pt at [facility] in [place]. Spoke with pt who is amenable to d/c to [place]. CC received [employer] auth and transport is scheduled for 1700. SALIMA Hernandez called report. [facility] updated. Date Signed: 07/18/2018 03:01 PM Electronically Signed By:FELIPE Rajput
[2018-07-18 16:41] VITALS: BP 140/78
--- NOTE | 2018-07-18 16:47 | PDPAINCON ---
Pain Management Consultation Patient referred by : Jessee - Subjective Pain is: high, but manageable (+fibromyalgia pain) Activity: out of bed with assistance - Objective Technique: continuous peripheral nerve block Site: sciatic Continuous infusion: ropivicaine Catheter site: clean, dry, intact, no erythema/edema/exudate Sensory and motor exam: block has resolved, no apparent ill effects Vital signs: stable - Assessment/Plan Assessment/Plan: other (On-Q pump infusion complete. Popliteal catheter removed. Pt being discharged to SNF today.)
--- NOTE | 2018-07-19 06:53 | GDS ---
CHIEF COMPLAINT: Right foot Charcot collapse. HOSPITAL COURSE: She was admitted to the hospital after an irrigation debridement, osteotomy and mid foot fusion for her right Charcot collapse. She was able to progress in terms of her diet. She was nonweightbearing on the right lower extremity. She failed to clear physical therapy and was evaluate d for placement in a usp facility. It was difficult to control her pain through the hosp italization due to her chronic opiate dependence. However, we were able to obtain pain control with a block and oral analgesics. She met criteria for discharge. Condition at discharge stable. CONSULTING PHYSICIANS: Dr. Burnett with Infectious Disease and hospitalist consult, Clarissa Esquivel. SURGERIES: As above. DISPOSITION: She is in a splint. She is nonweightbearing on the right lower extremity. She is on a regular diet. Started her previous home medications. She has been sent on Lovenox 40 mg daily for DVT prophylaxis. She is also wearing SCDs and compression stockings. She will follow up with myself in 1 week for splint removal and placement of a cast. She will be strict nonweightbearing. I stres sed the importance of staying off this and the weakness in her bone and the potential for collapse an d failure of the surgery would likely necessitate an amputation. She understood this. They will ximena l or come back to the hospital if she has chest pain, shortness of breath, or other concerns. /[id number]/MODL
== END 2018-07-18 17:22 | DRG 503 ==
LOC: F3E 06:31 → F3N 10:49
PROVIDERS: ADMIT Orthopaedic Surgery; ATTEND Orthopaedic Surgery
PROC: 0SGP04Z Fusion of Right Toe Phalangeal Joint with Internal Fixation Device, Open Approach (ICD-10-PCS; principal; 2018-07-15 07:15)
PROC: 0SGH04Z Fusion of Right Tarsal Joint with Internal Fixation Device, Open Approach (ICD-10-PCS; principal; 2018-07-15 07:15)
DX: M86.8X7 Other osteomyelitis, ankle and foot (principal); L89.614 Pressure ulcer of right heel, stage 4; A52.16 Charcot's arthropathy (tabetic); F11.20 Opioid dependence, uncomplicated; B96.5 Pseudomonas (aeruginosa) (mallei) (pseudomallei) as the cause of diseases classified elsewhere; J44.9 Chronic obstructive pulmonary disease, unspecified; I10 Essential (primary) hypertension; M79.7 Fibromyalgia; Z23 Encounter for immunization
CPT/HCPCS: 97116-GP; 97162-GP; 97165-GO; 97530-GP; 97535-GO; C1713; C1762; G0008; J1100; J1170; J1650; J2250; J2270; J2405; J2543; J2704; J2795; J3010

== ENCOUNTER 2018-11-27 18:03 | Emergency (ER) | payer OTHER, MEDICAID ==
[2018-11-27 18:48] LABS: PLATELET COUNT 260 10^3/uL (150-400)
--- NOTE | 2018-11-27 18:49 | EDPHY ---
H & P Stated Complaint: multiple complaints, "I have blood sepsis" Time Seen by Provider: 11/27/18 18:22 HPI/ROS: CHIEF COMPLAINT: Concerned about sepsis HISTORY OF PRESENT ILLNESS: 68-year-old female presents with a concern about sepsis. She has a sore on the right upper extremity and is concerned that she now has blood infection. The wound started a couple of weeks ago after scratching the RUE. Applying hydrogen peroxide without relief. Also c/o ongoing left first toe open wound and swelling of legs. On spironolactone, has missed a couple of doses in the past few days. Sx moderate. No fever or drainage from wounds REVIEW OF SYSTEMS: complete 10 point ROS reviewed and is negative except for the noted elements in the HPI Source: Patient - Medical/Surgical History Hx Asthma: No Hx Chronic Respiratory Disease: Yes Hx Diabetes: No Hx Cardiac Disease: Yes Hx Renal Disease: No Hx Cirrhosis: No Hx Alcoholism: No Hx HIV/AIDS: No Hx Splenectomy or Spleen Trauma: No Other PMH: FIBROMYALGIA, ARTHRITIS, DJD, HTN, COPD on home O2, chf, closed head injury, chronic pain, hernia sx/ smoker, - Social History Smoking Status: Heavy smoker Alcohol Use: Sober Drug Use: None - Physical Exam Exam: General Appearance: Alert, pleasant Eyes: Pupils equal and round, no conjunctival pallor or injection ENT, Mouth: Mucous membranes moist Neck: Normal inspection Respiratory: Lungs are clear to auscultation Cardiovascular: Regular rate and rhythm Gastrointestinal: Abdomen is soft and nontender Neurological: A&O, nonfocal, normal gait Skin: Warm and dry, no rash Extremities: Right upper extremity-scabbed over wound on the proximal aspect of the right forearm, with surrounding erythema approximately 3 cm in diameter, no fluctuance or drainage; left 1st toe-excessive callus and cracks within the callus, no erythema; bilateral calf swelling 1+ Psychiatric: tangential thought process, anxious Constitutional: Initial Vital Signs Temperature (C) 36.4 C 11/27/18 18:19 Heart Rate 80 11/27/18 18:19 Respiratory Rate 16 11/27/18 18:19 Blood Pressure 157/97 H 11/27/18 18:19 O2 Sat (%) 94 11/27/18 18:19 O2 Delivery Mode Room Air Allergies/Adverse Reactions: No Known Allergies Allergy (Verified 06/26/18 18:22) Home Medications: Medication Instructions Recorded Levalbuterol Inhaler [Xopenex Hfa 1 puffs IH Q4HRS PRN 10/31/16 Inhaler (*)] clonIDINE [Catapres (*)] 0.05 mg PO BID 01/04/17 oxyCODONE IR [Oxycodone Ir (*)] 30 mg PO .6XD PRN 01/04/17 Acetaminophen [Tylenol 325mg (*)] 650 mg PO Q4HRS PRN #0 tab 01/06/17 Diazepam [Valium 2 MG (*)] 1 mg PO BID 02/04/18 Estradiol [Estraderm 0.1 MG (RX)] 0.1 mg TD FR 02/04/18 Famotidine [Pepcid 20 MG (*)] 20 mg PO DAILY 02/04/18 Polyethylene Glycol 3350 [Miralax 17 gm PO DAILY PRN 02/04/18 17 gm (*)] fentaNYL [Duragesic 50 MCG Patch 50 mcg TD Q72H 02/04/18 (*)] Ibuprofen [Motrin (*)] 200 mg PO Q6H #60 tab 02/14/18 Gabapentin [Neurontin 300 MG (*)] 300 mg PO BID 07/04/18 Ipratropium/Albuterol [Duoneb (*)] 3 ml IH QID PRN 07/04/18 Sennosides/Docusate Sodium 1 - 2 tab PO BID PRN 07/04/18 [Senokot-S] Spironolactone [Aldactone 25 MG 25 mg PO DAILY 07/04/18 (*)] Piperacillin Sodium/Tazobactam 18 gm IV CONT 07/15/18 [Zosyn] Enoxaparin [Lovenox 40 MG (*)] 40 mg SC DAILY syr 07/18/18 Ondansetron HCl Pf [Zofran 4 mg 4 mg IVP Q4HRS PRN vial 07/18/18 Inj (*)] Piperacillin/Tazo 4.5 gm/Dex 4.5 ml IV Q6H bag 07/18/18 [Zosyn (Premix)] traMADol [Ultram 50 mg (*)] 50 - 100 mg PO Q6HRS PRN tab 07/18/18 Cephalexin [Keflex (*)] 500 mg PO TID #20 cap 05/23/19 Medical Decision Making - Diagnostics Imaging Results: Bilateral foot Xray: NAD Imaging: I viewed and interpreted images myself ED Course/Re-evaluation: This patient presents with multiple concerns, including a concern for sepsis. She has a mild cellulitis right forearm, but no evidence of sepsis. CBC obtained at pt request and WBC normal. She does not meet SIRS criteria. The patient was reassured. Keflex 500 mg orally given. Also c/o bilateral foot pain, Xrays obtained at pt request and are unremarkable. Pt encouraged to take spironolactone as prescribed for pedal edema. Strongly encouraged to f/u PCP for ongoing concerns. Differential Diagnosis: includes though not limited to abscess, fracture, osteomyelitis - Data Points Laboratory Results: Laboratory Results 11/27/18 18:30 11/27/18 18:30 Medications Given: Discontinued Medications Cephalexin (Keflex 500 Mg Prepack#4) 1 btl TAKEHOME EDNOW ONE PRN Reason: Protocol Stop: 11/27/18 19:57 Last Admin: 11/27/18 20:14 Dose: 1 btl Cephalexin HCl (Keflex) 500 mg PO EDNOW ONE PRN Reason: Protocol Stop: 11/27/18 18:52 Last Admin: 11/27/18 19:21 Dose: 500 mg Departure - Departure Disposition: Home, Routine, Self-Care Clinical Impression: Cellulitis Qualifiers: Site of cellulitis: extremity Site of cellulitis of extremity: upper extremity Laterality: right Qualified Code(s): L03.113 - Cellulitis of right upper limb Condition: Good Instructions: Cephalexin (By mouth), Cellulitis (ED) Additional Instructions: 1. You do not have sepsis. 2. Wash your right forearm with soap and water twice daily. Apply antibiotic ointment after washing. 3. Take Keflex 3 times daily. 4. Call your physician to make an appointment. Referrals: Raoul Giles MD [Primary Care Provider] - As per Instructions Prescriptions: Cephalexin [Keflex (*)] 500 mg PO TID #20 cap
[2018-11-27] MEDS ORDERED: CEPHALEXIN 500 MG CAP PO ONE (18:51)
[2018-11-27] MEDS ORDERED: CEPHALEXIN 500MG PREPACK#4 BTL TAKEHOME ONE (19:56)
[2018-11-27 20:25] VITALS: BP 149/90
== END 2018-11-27 20:25 | disposition home or self-care (01) ==
DX: L03.113 Cellulitis of right upper limb (principal)